=== PATIENT | male | born 1960 | race Caucasian/White ===

== ENCOUNTER 2020-10-02 01:28 | Emergency (ER) | payer MEDICARE, OTHER, SELFPAY ==
--- NOTE | 2020-10-02 01:01 | PC.NURSE ---
attempted to call [facility] [employer] guardian listed at phone number [phone] without success.
[2020-10-02 01:10] VITALS: BP 118/64; PULSE 77; RESP 18; TEMP 36.8; O2SAT 98; BMI 30.4
--- NOTE | 2020-10-02 01:17 | HMH.EDSKAF ---
ED Disposition Clinical Impression: Foreign body in ear Qualifiers: Encounter type: initial encounter Laterality: left Qualified Code(s): T16.2XXA - Foreign body in left ear, initial encounter Disposition: Home, Self-Care Condition on Discharge: Good Instructions: DI for Removal of Foreign Body From Ear Additional Instructions: resume prev orders - Critical Care Critical Care Time: No Attestation: On , the high probability of a clinically significant, sudden or life threatening deterioration of the following system(s) required my full and direct attention, intervention and personal management. The time I documented below is in addition to time spent performing reported procedures but includes the following listed in this critical care notation. Medical Decision Making - Medical Records Medical records reviewed: Yes: I reviewed the patient's medical records. - Massimo Inquiry Pt receiving controlled substance: No Vital Signs: 10/02/20 01:10 Temperature 98.2 F Temperature Source Oral Pulse Rate [Right Brachial] 77 Respiratory Rate 18 Blood Pressure [Right Arm] 118/64 Blood Pressure Mean [Right Arm] 82 Blood Pressure Source [Right Arm] Automatic Cuff Blood Pressure Position [Right Arm] Sitting 02 Sat by Pulse Oximetry 98 Oxygen Delivery Method Room Air - Lab Data Lab results reviewed: Yes: I reviewed the patient's lab results. Medical Decision Narrative: removed with irrigation - tm ok Skin/Abscess/FB HPI - General Chief complaint: Ear Stated complaint: possible insect in ear Time Seen by Provider: 10/02/20 01:15 Mode of Arrival: EMS Source of Information: Patient, EMS, Medical Record Limitations: No Limitations Description of Symptoms (Recalled from ER Triage Doc. by RN): left ear possible insect - History of Present Illness HPI narrative: possible insect in lt ear MD complaint: foreign body Onset (ago): hour(s) Location: face Severity: moderate Context: none Associated symptoms: denies other symptoms Treatments prior to arrival: none - Related Data Home Medications Medication Instructions Recorded Confirmed Folic Acid 0.4 mg PO DAILY 10/02/20 10/02/20 Metformin HCl 500 mg PO BID 10/02/20 10/02/20 Mirtazapine [Remeron 15mg tablet] 15 mg PO HS 10/02/20 10/02/20 OLANZapine [Olanzapine Odt] 5 mg PO DAILY 10/02/20 10/02/20 OLANZapine [Olanzapine] 20 mg PO HS 10/02/20 10/02/20 Allergies Allergy/AdvReac Type Severity Reaction Status Date / Time No Known Allergies Allergy Verified 10/02/20 01:18 [facility] History - Hepatitis A Screen Drug use history?: No High risk sexual behaviors?: No History of sexually transmitted infection?: No Currently employed?: No Childcare worker?: No Do you have indoor plumbing?: Yes Do you have electricity?: Yes Attestation statement:: This patient has been screened for Hepatitis A risk factors. I have reviewed the patient's past medical history: Yes ROS Obtained: Yes All systems reviewed & no additional complaints - Constitutional Constitutional: Denies fever(s) - Eyes Eyes: Denies change in vision - ENT Ears, Nose, Mouth, and Throat: Reports as per HPI, Denies sore throat, Reports other (possible fb ear lt ) - Cardiovascular Cardiovascular: Denies chest pain - Respiratory Respiratory: Denies cough - Gastrointestinal Gastrointestingal: Denies: abdominal pain - Genitourinary Male Genitourinary: Reports blood in semen, Denies hematuria - Musculoskeletal Musculoskeletal: Denies joint pain - Integumentary/Breasts Skin/Breast: Denies rash - Neurologic Neurologic: Denies seizure-like activity Physical Exam - General General appearance: alert - Head Head exam: normocephalic - Eye Eye exam: Present: PERRL, EOMI - Expanded ENT Exam TM/Canal exam: Left TM: foreign body (insect) - Neck Neck exam: Present: full ROM - Respiratory Respiratory exam: Present: normal lung sounds bilaterally - Cardiovasc
--- NOTE | 2020-10-02 01:27 | PC.NURSE ---
Spoke with Koki at [facility] in regards to transportation for pt back to [place]. She states she will be here shortly o take him back home.
[2020-10-02 01:42] VITALS: BP 137/77; PULSE 84; RESP 16; TEMP 36.4; O2SAT 98
== END 2020-10-02 01:43 | disposition home or self-care (01) ==
LOC: ER 01:38
PROVIDERS: Emergency Provider Emergency Medicine; PCP Emergency Medicine
DX: T16.2XXA Foreign body in left ear, initial encounter (principal)
CPT/HCPCS: 69200; 99282

== ENCOUNTER 2023-11-12 19:44 | Observation (INO) | payer MEDICARE, OTHER, SELFPAY ==
[2023-11-12 19:44] VITALS: BP 170/71; PULSE 91; RESP 26; TEMP 36.8; O2SAT 96; BMI 30.4
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
--- NOTE | 2023-11-12 20:02 | PC.NURSE ---
contacted house for information re: outpatient wound care follow thru. Spoke with Suma. She will retrieve the order and take it to the PT office
--- NOTE | 2023-11-12 20:21 | XR_ITS ---
PROCEDURE INFORMATION: Exam: XR Left Ankle Exam date and time: 11/12/2023 8:19 PM Age: 63 years old Clinical indication: Cellulitis; Ankle; Left; Additional info: Soft tissue infection TECHNIQUE: Imaging protocol: Radiologic exam of the left ankle. Views: 3 or more views. COMPARISON: No relevant prior studies available. FINDINGS: Bones/joints: Anatomic alignment is maintained. No acute fracture. No osteochondral defect. posteroinferior calcaneal enthesophytes. Soft tissues: Soft tissue edema about the visualized lower extremity. IMPRESSION: Nonspecific soft tissue edema without acute osseous abnormality. Recommend correlation with history/physical exam.
[2023-11-12 20:24] LABS: Basophils # 0.1 K/mm3 (0-0.2); Basophils % 0.8 % (0.1-2.0); Eosinophils # 0.1 K/mm3 (0.0-0.4); Eosinophils % 1.6 % (0.1-12.0); Hematocrit 29.4 % (42.0-52.0); Hemoglobin 9.6 g/dL (14.1-18.0); Lymphocytes # 1.8 K/mm3 (0.7-4.5); Lymphocytes % 27.7 % (10-50); Mean Corpuscular HGB Conc 32.7 g/dL (31.8-35.4); Mean Corpuscular Hemoglobin 20.7 pg (27.0-31.2); Mean Corpuscular Volume 63.4 fl (80-94); Mean Platelet Volume 9.3 fl (7.4-10.4); Monocytes # 0.5 K/mm3 (0.1-1.0); Monocytes % 7.1 % (1.7-9.3); Neutrophils # 4.2 K/mm3 (1.8-7.8); Neutrophils % 62.9 % (37.0-80.0); Platelet Count 182 K/mm3 (142-424); Red Blood Count 4.63 M/mm3 (4.60-6.20); Red Cell Distribution Width 16.5 % (11.5-17.5); White Blood Count 6.7 K/mm3 (4.8-10.8)
[2023-11-12 20:30] LABS: Chloride 102 mmol/L (98-107); Potassium 3.3 mmoL/L (3.5-5.1); Sodium 137 mmol/L (136-145)
[2023-11-12 20:33] LABS: Alanine Aminotransferase 63 U/L (12-78); Albumin Level 3.7 g/dl (3.5-5.0); Albumin/Globulin Ratio 0.8 (1.1-1.8); Alkaline Phosphatase 84 U/L (38-126); Anion Gap 11.3 mEq/L (5-15); Aspartate Amino Transferase 76 U/L (17-59); Bilirubin,Total 1.7 mg/dl (0.2-1.3); Blood Urea Nitrogen 10 mg/dl (9-20); Carbon Dioxide 27 mmol/L (22.0-30.0); Creatinine Clearance Estimated 94 mL/min (50-200); Estimated Glomerular Filt Rate 113 ml/min (>60); GFR (African American) 137 ML/MIN (>60); Globulin 4.4 g/dL (1.3-3.2); INR 1.02 (0.9-1.1); Prothrombin Time 11.4 seconds (10.1-12.5); Total Protein,Serum 8.1 g/dl (6.3-8.2)
[2023-11-12 20:34] LABS: Calcium 9.4 mg/dl (8.4-10.2); Glucose 133 mg/dl (74-100)
[2023-11-12] MEDS: PIPERACILLIN/TAZO 4.5 GM in 0.9 % SODIUM CHLORIDE 100 ML IV (20:34)
[2023-11-12] MEDS: VANCOMYCIN CONSULT REQUEST 1 EACH NOTAPPLIC (20:37)
[2023-11-12 20:39] LABS: C-Reactive Protein 9.7 mg/L (0-4)
[2023-11-12 20:46] LABS: Hemoglobin A1C 5.2 % (4.0-6.0)
[2023-11-12 21:05] LABS: Procalcitonin 0.076 ng/mL (0.0-2.0)
--- NOTE | 2023-11-12 21:07 | PC.NURSE ---
dane delarosa on phone with hospitalist at this time
[2023-11-12] MEDS: VANCOMYCIN HCL 2,250 MG in 0.9 % SODIUM CHLORIDE 250 ML 125 MG IV (21:10)
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
--- NOTE | 2023-11-12 21:39 | PC.NURSE ---
pts wound cleaned and dressing placed on wound. bed sheet noted to be dirty and wet from cleaning wound. sheet changed
[2023-11-12] MEDS: BACITRACIN OINT 0.9GM UDP 1 EACH TP (21:41)
[2023-11-12 21:53] VITALS: BP 153/67; PULSE 78; RESP 22; TEMP 36.6; O2SAT 95
[2023-11-12 21:54] LABS: Erythrocyte Sedimentation Rate 103 mm/hr (0-20)
--- NOTE | 2023-11-12 21:55 | PC.NURSE ---
pt arrived to floor at this time
[2023-11-12 22:00] VITALS: BP 153/64; PULSE 79; RESP 14; TEMP 36.6; O2SAT 99; BMI 29.1
--- NOTE | 2023-11-12 23:00 | PC.WOUNDNOTE ---
left lower extremity
[2023-11-12] MEDS: 0.9 % SODIUM CHLORIDE 1000ML 1,000 ML 50 ML IV (23:26)
[2023-11-13] MEDS: POTASSIUM CHLORIDE 20MEQ TAB 40 MEQ PO (01:08)
[2023-11-13 04:00] VITALS: BP 138/61; PULSE 88; RESP 16; TEMP 36.7; O2SAT 97; BMI 28.1
[2023-11-13 05:26] LABS: POC Glucose,Bedside 129 (70-110)
[2023-11-13] MEDS: PIPERACILLIN/TAZO 4.5 GM in 0.9 % SODIUM CHLORIDE 100 ML IV (06:30)
[2023-11-13 07:03] LABS: Basophils % 0.7 % (0.1-2.0); Eosinophils # 0.1 K/mm3 (0.0-0.4); Eosinophils % 1.5 % (0.1-12.0); Hematocrit 26.8 % (42.0-52.0); Hemoglobin 9.4 g/dL (14.1-18.0); Lymphocytes # 1.9 K/mm3 (0.7-4.5); Lymphocytes % 29.5 % (10-50); Mean Corpuscular Hemoglobin 22.5 pg (27.0-31.2); Mean Corpuscular Volume 64.2 fl (80-94); Mean Platelet Volume 8.8 fl (7.4-10.4); Monocytes # 0.6 K/mm3 (0.1-1.0); Monocytes % 9.6 % (1.7-9.3); Neutrophils # 3.8 K/mm3 (1.8-7.8); Neutrophils % 58.8 % (37.0-80.0); Platelet Count 157 K/mm3 (142-424); Red Blood Count 4.16 M/mm3 (4.60-6.20); Red Cell Distribution Width 16.7 % (11.5-17.5); White Blood Count 6.4 K/mm3 (4.8-10.8)
[2023-11-13 07:06] LABS: Reticulocyte % (Auto) 1.1 % (0.9-3.2)
[2023-11-13 07:12] LABS: Alanine Aminotransferase 58 U/L (12-78); Albumin Level 3.4 g/dl (3.5-5.0); Albumin/Globulin Ratio 0.8 (1.1-1.8); Alkaline Phosphatase 75 U/L (38-126); Aspartate Amino Transferase 68 U/L (17-59); Bilirubin,Total 1.8 mg/dl (0.2-1.3); Blood Urea Nitrogen 10 mg/dl (9-20); Calcium 9.1 mg/dl (8.4-10.2); Carbon Dioxide 28 mmol/L (22.0-30.0); Chloride 102 mmol/L (98-107); Creatinine Clearance Estimated 88 mL/min (50-200); Estimated Glomerular Filt Rate 97 ml/min (>60); GFR (African American) 117 ML/MIN (>60); Globulin 4.2 g/dL (1.3-3.2); Glucose 109 mg/dl (74-100); Magnesium 1.5 mg/dl (1.6-2.3); Sodium 136 mmol/L (136-145); Total Protein,Serum 7.6 g/dl (6.3-8.2)
--- NOTE | 2023-11-13 07:40 | P.CONPHA_ITS ---
Pharmacy Consult Date: 11/13/23 Time: 07:40 Referring provider: DR. OCHOA Reason for Consult:: VANCOMYCIN DOSING Allergies Allergy/AdvReac Type Severity Reaction Status Date / Time No Known Allergies Allergy Verified 10/02/20 01:18 Home Medications Medication Instructions Recorded Confirmed Type folic acid 400 mcg tablet 0.4 mg PO DAILY Supplement 10/02/20 11/12/23 History metformin 500 mg tablet 500 mg PO BID Diabetes 10/02/20 11/12/23 History mirtazapine 15 mg tablet 15 mg PO HS rls 10/02/20 11/12/23 History olanzapine 5 mg disintegrating 5 mg PO DAILY mood 10/02/20 11/12/23 History tablet hydrochlorothiazide 25 mg tablet 25 mg PO DAILY 11/12/23 11/12/23 History olanzapine 20 mg tablet (Zyprexa) 20 mg PO HS 11/12/23 11/12/23 History New Prescriptions to Start Prescriptions: Height: 1.73 m Weight: 84.368 kg Laboratory Results:: Laboratory Results - last 24 hr 11/12/23 20:14: WBC 6.7, RBC 4.63, Hgb 9.6 L, Hct 29.4 L, MCV 63.4 L, MCH 20.7 L , MCHC 32.7, RDW 16.5, Plt Count 182, MPV 9.3, Neut % (Auto) 62.9, Lymph % (Auto) 27.7, [place] % (Auto) 7.1, Eos % (Auto) 1.6, Baso % (Auto) 0.8, Neut # (Auto) 4.2, Lymph # (Auto) 1.8, [place] # (Auto) 0.5, Eos # (Auto) 0.1, Baso # (Auto) 0.1, ESR 103 H, PT 11.4, INR 1.02, Sodium 137, Potassium 3.3 L, Chloride 102, Carbon Dioxide 27, Anion Gap 11.3, BUN 10, Creatinine 0.70, Estimated Creat Clear 94, Estimated GFR 113, Est GFR ( Amer) 137, Glucose 133 H, Hemoglobin A1c 5.2, Calcium 9.4, Total Bilirubin 1.7 H, AST 76 H, ALT 63, Alkaline Phosphatase 84, C-Reactive Protein 9.7 H, Total Protein 8.1, Albumin 3.7, Globulin 4.4 H, Albumin/Globulin Ratio 0.8 L, Procalcitonin 0.076 11/13/23 05:15: POC Glucose 129 H 11/13/23 06:17: WBC 6.4, RBC 4.16 L, Hgb 9.4 L, Hct 26.8 L, MCV 64.2 L, MCH 22.5 L, MCHC 35.0, RDW 16.7, Plt Count 157, MPV 8.8, Neut % (Auto) 58.8, Lymph % (Auto) 29.5, [place] % (Auto) 9.6 H, Eos % (Auto) 1.5, Baso % (Auto) 0.7, Neut # (Auto) 3.8, Lymph # (Auto) 1.9, [place] # (Auto) 0.6, Eos # (Auto) 0.1, Baso # (Auto) 0.0, Retic Count (auto) 1.1, Sodium 136, Potassium 4.0 D, Chloride 102, Carbon Dioxide 28, Anion Gap 10.0, BUN 10, Creatinine 0.80, Estimated Creat Clear 88, Estimated GFR 97, Est GFR ( Amer) 117, Glucose 109 H, Calcium 9.1, Magnesium 1.5 L, Total Bilirubin 1.8 H, AST 68 H, ALT 58, Alkaline Phosphatase 75, Total Protein 7.6, Albumin 3.4 L, Globulin 4.2 H, Albumin/[place] bulin Ratio 0.8 L Medical History: Medical History (Updated 11/13/23 @ 01:22 by Luis Kwan APRN) No significant past medical history Assessment and Plan Assessment and plan all Dx Assessment and Plan for all problems:: Pharmacokinetic dosing service Objective: Patient: Floor: Age: 63 yo Serum creatinine: 0.80 mg/dL Height: 68.1 Inches Weight (kg): 84.4 Assessment: IBW (kg): 68.63 Dosing wt(kg): 84.4 Estimated Creatinine clearance (ml/min): 89.4 CRCL method: Cockcroft and Gault using ibw(default). Drug selected: Vancomycin Loading dose (mg): Vd (liters): 67.5 (factor used: 0.8 L/kg) Alvaro (hr-1): 0.079 Half life (hrs): 8.77 CLvanco=?? 5.333 L/hr Recommended dose: 1500 mg Interval: 12 hrs Infusion time (hrs): 2.0 Predicted peak (mcg/mL): 33.6 Predicted trough (mcg/mL): 15.25 Total body weight is being used for vancomycin dosing. Recommendations: Give Vancomycin 1500 mg q 12 hrs with an expected Cpeak of 33.6 mcg/ml and an expected Ctrough of 15.25 mcg/ml AUC 0-24 /RITO Data: RITO 0.5 mcg/mL:?? AUC/RITO:? 1125.1 RITO 1.0 mcg/mL:?? AUC/RITO:? 562.5 --------- RITO 1.5 mcg/mL:?? AUC/RITO:? 375.0 RITO 2.0 mcg/mL:?? AUC/RITO:? 281.3 Thank you for the consult, will continue to follow. -BRIANNA FUNG, YONYD
[2023-11-13 08:00] VITALS: BP 136/62; PULSE 82; RESP 22; TEMP 36.4; O2SAT 93
[2023-11-13] MEDS: ENOXAPARIN 40MG/0.4ML SYRINGE 40 MG SQ (09:03)
[2023-11-13] MEDS: METFORMIN 500MG TABLET 500 MG PO (09:03)
[2023-11-13] MEDS: hydroCHLOROthiazide 25MG TABLET 25 MG PO (09:03)
[2023-11-13] MEDS: MAGNESIUM SULFATE IN WATER 2 GM/50 ML PIGGYBACK IV (09:03)
[2023-11-13] MEDS: PANTOPRAZOLE 40MG TABLET 40 MG PO (09:03)
[2023-11-13 09:31] LABS: Vitamin B12 786 pg/mL (239-931)
[2023-11-13 09:33] LABS: Folate 5.63 ng/mL
[2023-11-13] MEDS: levoFLOXacin 750 MG TABLET PO (12:15)
[2023-11-13] MEDS: VANCOMYCIN/WATER FOR INJ (PEG) 1.5 GM/300 ML PIGGYBACK IV (12:15)
[2023-11-13 12:19] LABS: POC Glucose,Bedside 140 (70-110)
--- NOTE | 2023-11-13 12:19 | HMH.PHAINT1 ---
Pharmacy Intervention Comments: MEDICATION RECONCILIATION COMPLETED ON PATIENT USING EXTERNAL FILL HISTORY FROM PHARMACY. ATTEMPTED TO CALL [facility] FOR MAR AND WAS UNABLE TO OBTAIN. -BRIANNA FUNG, YONYD
[2023-11-13 13:58] LABS: Iron 145 ug/dL (49-181)
[2023-11-13 14:07] LABS: Total Iron Binding Capacity 167 ug/dL (261-462)
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
--- NOTE | 2023-11-13 14:21 | SW/DCPLANNER ---
Patient currently resides at [facility]. I have updated Dimple hernandez/ Nirmal Meyer that the plan for this patient is to return today and will need to return to [facility] outpatient on 11/14 for one dose of antibiotics and will need to also return for dressing changes.
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
[2023-11-13 17:11] LABS: Ferritin 2090 ng/ml (17.9-464)
== END 2023-11-13 15:40 | disposition home or self-care (01) ==
LOC: ER 21:17 → 2ND 21:22
PROVIDERS: Nurse Practitioner Family; Physician Assistant; Admitting Provider Internal Medicine; Emergency Provider Student in an Organized Health Care Education/Training Program; PCP Nurse Practitioner Acute Care; Visit Provider Internal Medicine
DX: L03.116 Cellulitis of left lower limb (principal); T25.212A Burn of second degree of left ankle, initial encounter; E11.69 Type 2 diabetes mellitus with other specified complication; I10 Essential (primary) hypertension; F25.9 Schizoaffective disorder, unspecified; Z79.899 Other long term (current) drug therapy; F17.210 Nicotine dependence, cigarettes, uncomplicated; E11.42 Type 2 diabetes mellitus with diabetic polyneuropathy; X08.8XXA Exposure to other specified smoke, fire and flames, initial encounter; Y92.099 Unspecified place in other non-institutional residence as the place of occurrence of the external cause; D52.9 Folate deficiency anemia, unspecified; Z79.84 Long term (current) use of oral hypoglycemic drugs; B95.61 Methicillin susceptible Staphylococcus aureus infection as the cause of diseases classified elsewhere; B96.89 Other specified bacterial agents as the cause of diseases classified elsewhere
CPT/HCPCS: 36415; 73610; 80053; 82607; 82728; 82746; 82962; 83036; 83540; 83550; 83735; 84145; 85025; 85044; 85610; 85651; 86140; 87040; 87070; 87077; 87186; 87205; 99285; G0378; J1650; J2543; J3370; J3475

== ENCOUNTER 2023-11-15 14:55 | Outpatient (CLI) | payer MEDICARE, OTHER, SELFPAY ==
[2023-11-15 15:20] VITALS: BP 147/67; PULSE 93; RESP 18; TEMP 36.9; O2SAT 95
[2023-11-15] MEDS: DALBAVANCIN HCL 1,500 MG in DEXTROSE 5 % IN WATER 250 ML 500 MG IV (15:20)
[2023-11-15 16:00] VITALS: BP 147/70; PULSE 89; RESP 18; TEMP 36.7; O2SAT 95
== END 2023-11-15 16:10 | disposition home or self-care (01) ==
LOC: INF 15:00
PROVIDERS: PCP Nurse Practitioner Acute Care; Visit Provider Internal Medicine Adolescent Medicine
DX: L03.116 Cellulitis of left lower limb (principal)
CPT/HCPCS: 96365; J0875; J7060

== ENCOUNTER 2023-12-14 14:37 | Outpatient (CLI) | payer MEDICARE, OTHER, SELFPAY | END 2023-12-14 23:59 | disposition home or self-care (01) | PROVIDERS: PCP Nurse Practitioner Acute Care; Visit Provider Internal Medicine Adolescent Medicine | DX: Z53.21 Procedure and treatment not carried out due to patient leaving prior to being seen by health care provider (principal) ==

== ENCOUNTER 2023-12-19 13:30 | Outpatient (RCR) | payer MEDICARE, OTHER, SELFPAY ==
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
== END 2023-12-19 13:35 | disposition home or self-care (01) ==
LOC: PT 13:30
PROVIDERS: Visit Provider Internal Medicine Adolescent Medicine
DX: L03.116 Cellulitis of left lower limb (principal)
CPT/HCPCS: 97163; 97597

== ENCOUNTER 2024-08-22 01:40 | Emergency (ER) | payer MEDICARE, OTHER, SELFPAY ==
[2024-08-22 01:41] VITALS: BP 108/83; PULSE 93; RESP 16; TEMP 36.6; O2SAT 98; BMI 26.3
--- NOTE | 2024-08-22 01:41 | XR_ITS ---
FINAL REPORT CLINICAL HISTORY: Fall, humerus pain FINDINGS: Two views show no evidence of an acute, displaced fracture or dislocation of the visualized bony architecture. The joint spaces appear normal. IMPRESSION: Unremarkable exam. Reviewed, Interpreted and Dictated by Kami Soto MD Transcribed by Rita Guzman Authenticated and . [facility]
--- NOTE | 2024-08-22 01:41 | XR_ITS ---
FINAL REPORT CLINICAL HISTORY: fall left rib pain FINDINGS: There is abnormal fullness of the AP window, mass or adenopathy is not excluded. The right lung is clear. There is no evidence of effusion or pneumothorax. There is evidence of old right AC joint injury. Heart size is normal. IMPRESSION: Abnormal mediastinal contour and widening. Recommend contrast-enhanced CT. Reviewed, Interpreted and Dictated by Kami Soto MD Transcribed by Rita Guzman Authenticated and [facility]
--- NOTE | 2024-08-22 01:44 | ED_ITS ---
Discharge Plan Disposition Patient Disposition: Home, Self-Care Prescriptions Prescriptions: No Action hydrochlorothiazide 25 mg Tablet 25 mg PO DAILY olanzapine [Zyprexa] 20 mg Tablet 20 mg PO HS temazepam 15 mg capsule 15 mg PO HSP PRN (Reason: Sleep) levofloxacin 750 mg Tablet 750 mg PO 1100 6 Days Qty: 6 0RF metformin 500 MG tablet 500 mg PO BID folic acid 0.4 MG tablet 0.4 mg PO DAILY mirtazapine 15 MG tablet 15 mg PO HS olanzapine 5 MG tablet,disintegrating 5 mg PO DAILY Referrals Follow up/Referrals: Provider,Referral, MD [Primary Care Provider] - See instructions Activity Restrictions/Add. Instructions Additional Instructions/Restrictions: Please follow-up with your primary care provider. Please return to the emergency department if you develop any new or worsening symptoms or become concerned for your health. Clinical Impressions Clinical Impression: Fall Arm pain Qualifiers: Laterality: left Qualified Code(s): M79.602 - Pain in left arm Chest pain Qualifiers: Chest pain type: intercostal pain Qualified Code(s): R07.82 - Intercostal pain Print Language Print Language: Ukrainian Discharge ED Provider: Modesto Celaya General Adult HPI General Chief complaint: Extremity Injury, Upper Stated complaint: Fall Time Seen by Provider: 08/22/24 01:44 History of Present Illness HPI narrative: 64-year-old male with history of schizophrenia presents for left arm pain and left rib pain after a fall. He reports that he tripped on the side of the bed and fell earlier today landing on his left arm. He reports it has been bothering him since then. Denies hitting his head or loss of consciousness or any other injuries. Related Data Home Medications ?Medication ?Instructions ?Recorded ?Confirmed folic acid 400 mcg tablet 0.4 mg PO DAILY Supplement 10/02/20 11/12/23 metformin 500 mg tablet 500 mg PO BID 10/02/20 11/12/23 mirtazapine 15 mg tablet 15 mg PO HS 10/02/20 11/12/23 olanzapine 5 mg disintegrating 5 mg PO DAILY 10/02/20 11/12/23 tablet hydrochlorothiazide 25 mg tablet 25 mg PO DAILY 11/12/23 11/12/23 olanzapine 20 mg tablet (Zyprexa) 20 mg PO HS 11/12/23 11/12/23 temazepam 15 mg capsule 15 mg PO HSP PRN Sleep 11/13/23 11/13/23 Previous Rx's ?Medication ?Instructions ?Recorded levofloxacin 750 mg tablet 750 mg PO 1100 6 days #6 tabs 11/13/23 Allergies Allergy/AdvReac Type Severity Reaction Status Date / Time No Known Allergies Allergy Verified 10/02/20 01:18 [facility] Disclaimer: The information contained in this section may have been updated after the patient was seen, as this information can be updated by other users. Medical History (Updated 08/22/24 @ 02:23 by Modesto Celaya MD) No significant past medical history Social History Smoking Status: Current every day smoker alcohol intake: never current occupational status: unemployed Travel in the last 8 weeks: None Other Medical History Have you received the Flu Vaccine for this season: No Have you received the Pneumonia Vaccine: No ROS Obtained: Yes All systems reviewed & no additional complaints except as documented Physical Exam General General appearance: alert and in no apparent distress Head Head exam: atraumatic and normocephalic Eye Eye exam: Present normal appearance, PERRL and EOMI ENT ENT exam: Present normal oropharynx and normal external ear exam Neck Neck exam: Present normal inspection and full ROM Chest Chest inspection: Present normal inspection and symmetric chest wall rise; Absent tenderness Respiratory Respiratory exam: Present normal lung sounds bilaterally; Absent respiratory distress Cardiovascular Cardiovascular exam: Present regular rate and normal rhythm Abdominal Exam Abdominal exam: Present soft; Absent distention, tenderness or guarding Extremities Exam Extremities exam: Present normal inspection; Absent edema or joint swelling Back Exam Back exam: Present normal inspection; Absent tenderness Neurological Exam Neurological exam: Present alert and oriented X3; Absent motor sensory deficit Psychiatric Psychiatric exam: Present normal affect and normal mood Skin Skin exam: Present warm, dry and normal color Lymphatic Lymphatic Findings: no adenopathy Medical Decision Making Medical Records Medical records reviewed: Yes I reviewed the patient's medical records. Screening: Per USPSTF and CDC recommendations, given the prevalence of disease in our region, it is our hospital?s policy to screen for HIV and viral Hepatitis for all patients aged 18 and over and those with ongoing risk factors. Massimo Inquiry Pt receiving controlled substance: No Massimo was queried for this patient: No Vital Signs: 08/22/24 01:41 08/22/24 01:45 08/22/24 02:35 Temperature 97.9 F 97.9 F Temperature Source Oral Oral Pulse Rate 89 84 Pulse Rate [Right Radial] 93 H Respiratory Rate 16 16 18 Blood Pressure 108/83 L 157/76 H Blood Pressure [Right Arm] 108/83 L Blood Pressure Mean [Right Arm] 91 Blood Pressure Source [Right Arm] Automatic Cuff Blood Pressure Position Sitting Blood Pressure Position [Right Arm] Supine 02 Sat by Pulse Oximetry 98 99 Oxygen Delivery Method Room Air Room Air Room Air Lab Data Lab results reviewed: Yes I reviewed the patient's lab results. Orders (Tests/Meds): ED MEDICATIONS Discontinued Medications Generic Name Dose Route Start Last Admin Trade Name Freq PRN Reason Stop Dose Admin Acetaminophen 1,000 mg 08/22/24 01:41 08/22/24 01:51 Acetaminophen 500mg Tab PO 08/22/24 01:42 1,000 mg ONCE ONE Administration ORDERS Category Date Time Status CXR --portable [XR chest portable] Stat Exams 08/22/24 01:41 Taken Humerus XR left [XR humerus LT] Stat Exams 08/22/24 01:41 Taken Medical Decision Narrative: 64-year-old male with history of schizophrenia presents with left arm pain after a fall from standing.. History was obtained via interactive discussion with patient, EMS. On arrival, patient is [afebrile, hemodynamically stable, satting appropriately, alert, oriented x4, GCS 15], moving all extremities spontaneously. Full physical exam performed and significant for no significant signs of trauma. Patient is not on blood thinners. Differential includes but is not limited to intracranial trauma intrathoracic trauma intra-abdominal trauma spine trauma extremity trauma. No concern for significant trauma based on history and exam. Will evaluate with radiographs of the left humerus and chest. On my independent interpretation, radiographs and evidence of acute fracture, pneumothorax or other traumatic injuries. Patient was given Tylenol for pain control and discharged in stable condition with return precautions. CT trauma imaging was considered, but deemed unnecessary due to history and physical exam. Procedures Risk/Benefits of Procedure(s) Were Explained: Yes Critical Care Critical Care Time Critical Care Time: No
[2024-08-22 01:45] VITALS: BP 108/83; PULSE 89; RESP 16; O2SAT 99
[2024-08-22] MEDS: ACETAMINOPHEN 500MG TAB 1000 MG PO (01:51)
[2024-08-22 02:35] VITALS: BP 157/76; PULSE 84; RESP 18; TEMP 36.6; O2SAT 99
== END 2024-08-22 02:46 | disposition home or self-care (01) ==
PROVIDERS: Emergency Provider Emergency Medicine
DX: R07.82 Intercostal pain (principal); M79.602 Pain in left arm; W01.10XA Fall on same level from slipping, tripping and stumbling with subsequent striking against unspecified object, initial encounter
CPT/HCPCS: 99284; 71045; 73060

== ENCOUNTER 2024-09-12 11:09 | Emergency (ER) | payer MEDICARE, OTHER, SELFPAY ==
[2024-09-12 11:17] VITALS: BP 142/60; PULSE 101; RESP 17; TEMP 36.4; O2SAT 98; BMI 26.4
[2024-09-12 11:35] VITALS: PULSE 98; O2SAT 96
[2024-09-12 11:38] LABS: Alanine Aminotransferase 52 U/L (12-78); Albumin Level 3.7 g/dl (3.5-5.0); Albumin/Globulin Ratio 1.1 (1.1-1.8); Alkaline Phosphatase 77 U/L (38-126); Anion Gap 5.8 mEq/L (5-15); Aspartate Amino Transferase 52 U/L (17-59); Bilirubin,Total 1.7 mg/dl (0.2-1.3); Blood Urea Nitrogen 9 mg/dl (9-20); Calcium 10.4 mg/dl (8.4-10.2); Carbon Dioxide 28 mmol/L (22.0-30.0); Chloride 94 mmol/L (98-107); Creatinine Clearance Estimated 89 mL/min (50-200); Estimated Glomerular Filt Rate 135 ml/min (>60); GFR (African American) 163 ML/MIN (>60); Globulin 3.4 g/dL (1.3-3.2); Glucose 204 mg/dl (74-100); Potassium 3.8 mmoL/L (3.5-5.1); Sodium 124 mmol/L (136-145); Total Protein,Serum 7.1 g/dl (6.3-8.2)
[2024-09-12] MEDS: KETOROLAC 30MG/ML VIAL 15 MG IV (11:40)
[2024-09-12] MEDS: LACTATED RINGERS 1000ML 1,000 ML 999 ML IV (11:40)
[2024-09-12 11:54] LABS: Basophils % 0.6 % (0.1-2.0); Eosinophils # 0.1 Kmm3 (0.0-0.4); Eosinophils % 1.7 % (0.1-12.0); Hematocrit 24.2 % (42.0-52.0); Hemoglobin 7.9 g/dL (14.1-18.0); Lymphocytes # 1.7 K/mm3 (0.7-4.5); Mean Corpuscular HGB Conc 32.6 g/dL (31.8-35.4); Mean Corpuscular Hemoglobin 20.3 pg (27.0-31.2); Mean Corpuscular Volume 62.2 fl (80-94); Mean Platelet Volume 10.7 fl (7.4-10.4); Monocytes # 0.6 K/mm3 (0.1-1.0); Monocytes % 7.7 % (1.7-9.3); Neutrophils # 4.7 K/mm3 (1.8-7.8); Neutrophils % 65.4 % (37.0-80.0); Nucleated Red Blood Cells # 0.04 10^3/uL; Nucleated Red Blood Cells % 0.6 %; Platelet Count 213 K/mm3 (142-424); Red Blood Count 3.89 M/mm3 (4.60-6.20); Red Cell Distribution Width 16.2 % (11.5-17.5); Red Cell Distribution Width-SD 34.9 fL; White Blood Count 7.2 K/mm3 (4.8-10.8)
--- NOTE | 2024-09-12 11:55 | ED_ITS ---
Discharge Plan Disposition Patient Disposition: Home, Self-Care Chief Complaint: Skin/Abscess/Foreign Body Prescriptions Prescriptions: No Action hydrochlorothiazide 25 mg Tablet 25 mg PO DAILY olanzapine [Zyprexa] 20 mg Tablet 20 mg PO HS temazepam 15 mg capsule 15 mg PO HSP PRN (Reason: Sleep) metformin 500 MG tablet 500 mg PO BID folic acid 0.4 MG tablet 0.4 mg PO DAILY mirtazapine 15 MG tablet 15 mg PO HS olanzapine 5 MG tablet,disintegrating 5 mg PO DAILY loperamide [Anti-Diarrheal (loperamide)] 2 mg tablet 2 mg PO DIRECTED Rx Instructions: 1 tablet by mouth for loose stool not to exceed 8mg/day cholecalciferol (vitamin D3) 1,250 mcg (50,000 unit) capsule 1,250 mcg PO WEEKLY Rx Instructions: once weekly on MONDAY Referrals Follow up/Referrals: Provider,Referral, MD [Referring] - See instructions Activity Restrictions/Add. Instructions Additional Instructions/Restrictions: Call your family doctor to establish care for this visit to the emergency department and schedule follow-up within 48 hours to ensure improvement. If you have any worsening of your condition or any other concerning signs or symptoms, return to the emergency department or your primary care doctor for further evaluation. Follow-up with your family doctor for repeat labs to look at your electrolytes. Clinical Impressions Clinical Impression: Cellulitis of arm, left Instructions Patient Instructions: DI for Skin Abscess Print Language Print Language: Malaysian Discharge ED Provider: Kenton Villegas General Adult HPI General Chief complaint: Skin/Abscess/Foreign Body Stated complaint: Edema in forearm Time Seen by Provider: 09/12/24 11:12 Mode of Arrival: EMS Source of Information: Patient and EMS Description of Symptoms (Recalled from ER Triage Doc. by RN): pt arrives to the ED by EMS with left hand swelling that goes up his forearm. EMS reports they got called out to [facility] for left hand swelling with concerns of a blood clot. Vital signs stable enroute to hospital. EMS reports pt is alert and oriented x4 with GCS 15. EMS reported glucose of 236 of enroute. Left hand and forearm swollen with redness. Nodule on left forearm with redness and swelling. Distal pulse on left radial 2+. History of Present Illness HPI narrative: Please note that above description of symptoms, in this electronic medical record under categorization of recalled from ER triage doctor by RN are reflective of an initial nursing assessment, however, is not reflective of my full history and physical exam that was personally taken and clarified. Consequentially, this preceding description of symptoms, which may include the patient's categorized chief complaint in the EMR, do not reflect my personal clinical impression, and the ultimate description of history of present illness and patient stated complaints should be deferred to this section of the note. Unless stated otherwise or congruent with this section of the note, additional signs, symptoms, or incongruence should be interpreted as inaccurate with my clinical impression. Related Data Home Medications ?Medication ?Instructions ?Recorded ?Confirmed folic acid 400 mcg tablet 0.4 mg PO DAILY Supplement 10/02/20 09/12/24 metformin 500 mg tablet 500 mg PO BID 10/02/20 09/12/24 mirtazapine 15 mg tablet 15 mg PO HS 10/02/20 09/12/24 olanzapine 5 mg disintegrating 5 mg PO DAILY 10/02/20 09/12/24 tablet hydrochlorothiazide 25 mg tablet 25 mg PO DAILY 11/12/23 09/12/24 olanzapine 20 mg tablet (Zyprexa) 20 mg PO HS 11/12/23 09/12/24 temazepam 15 mg capsule 15 mg PO HSP PRN Sleep 11/13/23 09/12/24 cholecalciferol (vitamin D3) 1,250 1,250 mcg PO WEEKLY 09/12/24 09/12/24 mcg (50,000 unit) capsule loperamide 2 mg tablet 2 mg PO DIRECTED 09/12/24 09/12/24 (Anti-Diarrheal (loperamide)) Allergies Allergy/AdvReac Type Severity Reaction Status Date / Time No Known Allergies Allergy Verified 10/02/20 01:18 [facility] Disclaimer: The information contained in this section may have been updated after the patient was seen, as this information can be updated by other users. Medical History (Updated 09/12/24 @ 12:56 by Kenton Villegas MD) No significant past medical history Social History Smoking Status: Current every day smoker alcohol intake: never current occupational status: unemployed Travel in the last 8 weeks?: None Have you lived/traveled outside US in past 30 days?: No Contact w/someone who lives/traveled outside US past 30 days?: No Exposure to someone with infectious disease in past 14 days?: No Do you have a fever (greater than 100.4 F or 38 C)?: No Have you tested positive for COVID-19?: No Exposed to someone with COVID-19 in past 14 days?: No Do you have a sore throat?: No Do you have a cough?: No Do you have any weakness?: No Do you have any diarrhea?: No Are you experiencing any unusual bleeding?: No Do you have any muscle aches/pain?: No Do you have any abdominal pain?: No Are you experiencing loss of taste or smell?: No Other Medical History Have you received the Flu Vaccine for this season: No Have you received the Pneumonia Vaccine: No ROS Obtained: Yes All systems reviewed & no additional complaints except as documented Physical Exam General General appearance: alert Head Head exam: atraumatic and normocephalic Eye Eye exam: Present normal appearance, PERRL and EOMI Neck Neck exam: Present normal inspection, full ROM and trachea midline Respiratory Respiratory exam: Absent respiratory distress, wheezes, stridor, accessory muscle use or prolonged expiratory phase Cardiovascular Cardiovascular exam: Present other (Pulses equal symmetric in upper and lower extremities) Abdominal Exam Abdominal exam: Present soft; Absent distention, tenderness or pulsatile mass Extremities Exam Extremities exam: Present edema and other Neurological Exam Neurological exam: Present alert, oriented X3 and CN II-XII intact; Absent motor sensory deficit Skin Skin exam: Present warm and dry; Absent diaphoresis or erythema Medical Decision Making Medical Records Medical records reviewed: Yes I reviewed the patient's medical records. Screening: Per USPSTF and CDC recommendations, given the prevalence of disease in our region, it is our hospital?s policy to screen for HIV and viral Hepatitis for all patients aged 18 and over and those with ongoing risk factors. Massimo Inquiry Pt receiving controlled substance: No Massimo was queried for this patient: No Vital Signs: 09/12/24 11:17 Temperature 97.5 F L Temperature Source Oral Pulse Rate [Right] 101 H Respiratory Rate 17 Blood Pressure [Right Arm] 142/60 H Blood Pressure Mean [Right Arm] 87 Blood Pressure Source [Right Arm] Automatic Cuff Blood Pressure Position [Right Arm] Supine 02 Sat by Pulse Oximetry 98 Oxygen Delivery Method Room Air Lab Data Lab Results 09/12/24 11:10: WBC 7.2, RBC 3.89 L, Hgb 7.9 L, Hct 24.2 L, MCV 62.2 L, MCH 20.3 L, MCHC 32.6, RDW 16.2, Plt Count 213, MPV 10.7 H, Neut % (Auto) 65.4, Lymph % (Auto) 24.0, Delta % (Auto) 7.7, Eos % (Auto) 1.7, Baso % (Auto) 0.6, Neut # (Auto) 4.7, Lymph # (Auto) 1.7, Delta # (Auto) 0.6, Eos # (Auto) 0.1, Baso # (Auto) 0.0, Sodium 124 L, Potassium 3.8, Chloride 94 L, Carbon Dioxide 28, Anion Gap 5.8, BUN 9, Creatinine 0.60 L, Estimated Creat Clear 89, Estimated GFR 135, Est GFR ( Amer) 163, Glucose 204 H, Calcium 10.4 H, Total Bilirubin 1.7 H , AST 52, ALT 52, Alkaline Phosphatase 77, Total Protein 7.1, Albumin 3.7, G lobulin 3.4 H, Albumin/Globulin Ratio 1.1 09/12/24 11:36: Lactate 3.1 H 09/12/24 11:10 09/12/24 11:10 Orders (Tests/Meds): ED MEDICATIONS Generic Name Dose Route Start Last Admin Trade Name Freq PRN Reason Stop Dose Admin Sodium Chloride 1,000 mls @ 999 mls/hr 09/12/24 12:27 Sod Chlor 0.9% 1000ml Bag IV 09/12/24 13:27 .Q1H1M ONE Discontinued Medications Generic Name Dose Route Start Last Admin Trade Name Freq PRN Reason Stop Dose Admin Lactated Ringer's 1,000 mls @ 999 mls/hr 09/12/24 11:27 09/12/24 11:40 Lactated Ringer's 1000 Ml Bag IV 09/12/24 12:27 999 mls/hr .Q1H1M ONE Administration Dalbavancin 1,500 mg/ Dextrose 250 mls @ 500 mls/hr 09/12/24 12:27 IV 09/12/24 12:28 ONCE ONE Ketorolac Tromethamine 15 mg 09/12/24 11:27 09/12/24 11:40 Ketorolac 30mg/Ml Vial IV 09/12/24 11:28 15 mg ONCE ONE Administration ORDERS Category Date Time Status POCUS Point of Care (ER Only) Stat Exams 09/12/24 11:12 Completed CBC w/Auto Diff [Complete Blood Count Auto Diff] Stat Lab 09/12/24 11:10 Completed CMP [Comprehensive Metabolic Panel] Stat Lab 09/12/24 11:10 Completed Lactic Acid Stat Lab 09/12/24 11:36 Completed Blood Culture Stat Micro 09/12/24 11:47 Received Medical Decision Narrative: 64-year-old male history of hypertension, hyperlipidemia, schizoaffective disorder, skin and soft tissue infections presenting with left upper extremity swelling. He states this been going on for about 2 weeks. He states that he fell while walking and landed on his left upper extremity and states that there is a dark spot, in his hand where he thinks the swelling started. Able to range the extremity without issue, no point tenderness, but states that the swelling is causing mild pain throughout his entire arm. He is mostly concerned about a blood clot, so came in for that with EMS. History was obtained via conversation with patient and EMS. On arrival, patient hemodynamically stable, alert, oriented x4, appropriate, GCS 15, moving all extremities spontaneously, pupils equal and reactive to light. Full physical exam performed and significant for disheveled, clinically well appearing male who is in no acute distress. Extensive erythema and edema from the elbow down to the digits. No evidence of fluctuance. Differential includes cellulitis, abscess, DVT, among others. Patient placed on continuous cardiac monitoring and continuous pulse ox with initial blood pressure 142/60, heart rate 101, saturation 98% on room air. Patient was given fluid bolus for symptomatic management and correction of underlying abnormalities. Workup independently interpreted and significant for normal white count, mild hyponatremia 124, this was repleted with IV fluids including saline and LR. Lactate 3.1, normal LFTs otherwise. On independent interpretation of imaging, patient has extensive cellulitis of his left upper extremity. No evidence of DVT. Given 1500 mg of Dalvance. On reevaluation, patient's tachycardia improved, patient feeling much better after fluid. Tissue perfusion reassessment performed within 3 hours, patient mentating, following commands, good capillary refill and hemodynamically stable. Given patient presentation, workup, history, this most likely represents extensive cellulitis of the left upper extremity. Because patient still clinically well, no systemic signs or symptoms and tachycardia improved, appropriate for outpatient management. Because patient at baseline without signs or symptoms of clinical decompensation, deemed appropriate for discharge. Results were relayed to patient who voiced understanding and were agreeable to outpatient management and follow up. I discussed my clinical impression with patient and answered all questions. At this time, the evidence for any other entities in the differential is insufficient to warrant any further testing or ED observation. This was explained as well. Advisory was given that persistent or worsening symptoms require further evaluation. I confirmed the understanding of this discussion. Database Administrator disclaimer Much of this encounter note is an electronic vehicle assembler spoken language to printed text. Electronic vehicle assembler of the spoken language may permit errors. Although I have reviewed the note, some errors may still exist. Procedures Limited Ultrasound Indication:: Limited soft tissue ultrasound Indication: Soft tissue swelling, pain after fall Identified structures: Location: Left upper extremity soft tissue structures Findings: Extensive cellulitis of the left upper extremity from the elbow down to the digits with no evidence of phlegmon, abscess, or gas Impression: Extensive cellulitis of the left upper extremity Images were saved to permanent archive The study was technically adequate Soft Tissue CPT Codes: CPT Neck: 41465-43 CPT Upper extremity: 83831-30 CPT Axilla: 15298-98 CPT Chest wall: 68836-49 CPT Breast: 66384-87-NG/LT (complete), 01975-37-NN/LT (limited), CPT Upper Back: 62380-19 CPT Lower Back: 92639-24 CPT Abdominal Wall: 92691-89 CPT Pelvic Wall: 47551-95 CPT Lower Extremity: 59684-71 CPT Other Soft Tissue: 70716-00 This study was performed by me, and I personally interpreted all images/videos. Based on my clinical judgement, these images were adequate and did not necessitate further imaging. Views:: Limited DVT ultrasound Indication: Limited compression ultrasonography of the left upper extremity was performed to evaluate for non-compressibility of the deep veins in the patient. The ultrasound was performed with the following indications, as noted in the H&P: Left upper extremity swelling and redness Identified structures: [RIGHT or LEFT or BILATERAL] [common femoral vein, femoral vein, popliteal vein were examined.] [Ulnar vein, radial vein, cephalic vein, basilic vein, axillary vein.] Findings: Upper extremity: Right UV[Good compressibility] Right RV: [Good compressibility] Right Cephalic vein: [Good compressibility] Right Basilic vein: [Good compressibility] Right Axillary vein: [Good compressibility] Left UV[Good compressibility] Left RV: [Good compressibility] Left Cephalic vein: [Good compressibility] Left Basilic vein: [Good compressibility] Left Axillary vein: [Good compressibility] Lower Extremity: Right CFV: [Good compressibility] Right FV: [Good compressibility] Right Popliteal vein: [Good compressibility] Left CFV: [Good compressibility] Left FV [Good compressibility] Left Popliteal vein: [Good compressibility] Impression: [Normal DVT ultrasound without evidence of DVT] Images [were saved] to permanent archive The study [was] technically adequate CPT: 97808-22-AU 13026-85-ZK 01943-34 (complete bilateral study) This study was performed by me, and I personally interpreted all images/videos. Based on my clinical judgement, these images were [adequate] and [did not] necessitate further imaging Critical Care Critical Care Time Critical Care Time: No
[2024-09-12 11:56] LABS: Lactic Acid 3.1 mmol/L (0.7-2.1)
[2024-09-12 12:00] VITALS: PULSE 92; O2SAT 97
[2024-09-12 12:30] VITALS: PULSE 89; O2SAT 98
[2024-09-12] MEDS: DALBAVANCIN HCL 1,500 MG in DEXTROSE 5 % IN WATER 250 ML 500 MG IV (12:45)
[2024-09-12] MEDS: 0.9 % SODIUM CHLORIDE 1000ML 1,000 ML 999 ML IV (12:59)
[2024-09-12 13:58] VITALS: BP 132/78; PULSE 75; RESP 17; TEMP 36.8; O2SAT 98
[2024-09-12 15:40] LABS: Reflex Lactic Add Lactic Reflex
== END 2024-09-12 14:03 | disposition home or self-care (01) ==
PROVIDERS: Emergency Provider Emergency Medicine; PCP Nurse Practitioner Family
DX: L03.114 Cellulitis of left upper limb (principal); R00.0 Tachycardia, unspecified; R22.32 Localized swelling, mass and lump, left upper limb; E87.1 Hypo-osmolality and hyponatremia
CPT/HCPCS: 80053; 83605; 85025; 87040; 96361; 96374; 96375; 99284; J0875; J1885; J7030; J7060; J7120

== ENCOUNTER 2024-10-02 17:47 | Inpatient (IN) | payer MEDICARE, OTHER, SELFPAY ==
[2024-10-02] VITALS (8 sets, daily range): BP systolic 125–140; BP diastolic 55–72; PULSE 87–106; RESP 16–20; TEMP 36.4–37.1; O2SAT 95–99; BMI 24.4; BMI 23.2
--- NOTE | 2024-10-02 18:08 | CT_ITS ---
PROCEDURE INFORMATION: Exam: CT Left Upper Extremity With Contrast, Elbow Exam date and time: 10/02/2024 6:43 PM Age: 64 years old Clinical indication: Swelling; Arm, lower and arm, upper; Left; Additional info: L arm pain/swell, tx for cellulitis failed, fall TECHNIQUE: Imaging protocol: Computed tomography of the left upper extremity with contrast. Exam focused on the elbow. Radiation optimization: All CT scans at this facility use at least one of these dose optimization techniques: automated exposure control; mA and/or kV adjustment per patient size (includes targeted exams where dose is matched to clinical indication); or iterative reconstruction. Contrast material: ISOVUE; Contrast volume: 75 ml; Contrast route: IV; COMPARISON: CT FOREARM LT W CON 10/02/2024 6:43 PM FINDINGS: Bones/joints: No periosteal thickening or reactive changes. No acute fracture or dislocation. No effusion. Soft tissues: Subcutaneous fat stranding from mid arm to visualized hand. No discrete drainable fluid collection. IMPRESSION: 1. No acute osseous findings identified. 2. Subcutaneous edema/cellulitis from mid arm to hand.
[2024-10-02 18:22] LABS: Albumin Level 3.5 g/dl (3.5-5.0); Basophils % 0.3 % (0.1-2.0); Chloride 92 mmol/L (98-107); Eosinophils # 0.2 Kmm3 (0.0-0.4); Eosinophils % 2.1 % (0.1-12.0); Hematocrit 24.7 % (42.0-52.0); Hemoglobin 8.1 g/dL (14.1-18.0); Immature Granulocytes # 0.05 10^3uL; Immature Granulocytes % 0.5 %; Lymphocytes # 2.1 K/mm3 (0.7-4.5); Mean Corpuscular HGB Conc 32.8 g/dL (31.8-35.4); Mean Corpuscular Hemoglobin 20.6 pg (27.0-31.2); Mean Corpuscular Volume 62.8 fl (80-94); Mean Platelet Volume 10.5 fl (7.4-10.4); Monocytes # 0.6 K/mm3 (0.1-1.0); Monocytes % 6.8 % (1.7-9.3); Neutrophils # 6.2 K/mm3 (1.8-7.8); Neutrophils % 67.3 % (37.0-80.0); Nucleated Red Blood Cells # 0.04 10^3/uL; Nucleated Red Blood Cells % 0.4 %; Platelet Count 233 K/mm3 (142-424); Red Blood Count 3.93 M/mm3 (4.60-6.20); Red Cell Distribution Width 16.2 % (11.5-17.5); Red Cell Distribution Width-SD 35.2 fL; Sodium 126 mmol/L (136-145); White Blood Count 9.2 K/mm3 (4.8-10.8)
[2024-10-02 18:23] LABS: Potassium 3.7 mmoL/L (3.5-5.1)
[2024-10-02 18:25] LABS: Activated Partial Thrombo Time 27.1 seconds (22.8-30.6); Alanine Aminotransferase 65 U/L (12-78); Anion Gap 8.7 mEq/L (5-15); Aspartate Amino Transferase 61 U/L (17-59); Blood Urea Nitrogen 11 mg/dl (9-20); Carbon Dioxide 29 mmol/L (22.0-30.0); Creatinine Clearance Estimated 82 mL/min (50-200); Estimated Glomerular Filt Rate 113 ml/min (>60); GFR (African American) 137 ML/MIN (>60); INR 1.09 (0.9-1.1)
[2024-10-02 18:26] LABS: Albumin/Globulin Ratio 0.9 (1.1-1.8); Alkaline Phosphatase 93 U/L (38-126); Bilirubin,Total 1.9 mg/dl (0.2-1.3); Calcium 10.8 mg/dl (8.4-10.2); Globulin 3.7 g/dL (1.3-3.2); Glucose 171 mg/dl (74-100); Total Protein,Serum 7.2 g/dl (6.3-8.2)
[2024-10-02 18:31] LABS: D-Dimer 1.43 ug/mL (0.0-0.5)
[2024-10-02 18:32] LABS: C-Reactive Protein 15.1 mg/L (0-4)
[2024-10-02] MEDS: SODIUM CHLORIDE 0.9% 10ML SYR (RAD ONLY) 10 ML IV (18:46)
[2024-10-02] MEDS: IOPAMIDOL-370 (76%);100ML BOTTLE 75 ML IV (18:47)
[2024-10-02 18:49] LABS: Erythrocyte Sedimentation Rate 125 mm/hr (0-20)
--- NOTE | 2024-10-02 19:22 | HMH.EDGENADL ---
Discharge Plan Disposition Patient Disposition: Admitted Condition: Good Prescriptions Prescriptions: No Action hydrochlorothiazide 25 mg Tablet 25 mg PO DAILY olanzapine [Zyprexa] 20 mg Tablet 20 mg PO HS temazepam 15 mg capsule 15 mg PO HSP PRN (Reason: Sleep) metformin 500 MG tablet 500 mg PO BID folic acid 0.4 MG tablet 0.4 mg PO DAILY mirtazapine 15 MG tablet 15 mg PO HS olanzapine 5 MG tablet,disintegrating 5 mg PO DAILY loperamide [Anti-Diarrheal (loperamide)] 2 mg tablet 2 mg PO DIRECTED Rx Instructions: 1 tablet by mouth for loose stool not to exceed 8mg/day cholecalciferol (vitamin D3) 1,250 mcg (50,000 unit) capsule 1,250 mcg PO WEEKLY Rx Instructions: once weekly on MONDAY Referrals Follow up/Referrals: Provider,Referral, MD [Primary Care Provider] - See instructions Clinical Impressions Clinical Impression: Cellulitis, Altered mental status Print Language Print Language: Micronesian Discharge ED Provider: Radha Cantu General Adult HPI General Chief complaint: Extremity Injury, Upper Stated complaint: Edema in Left arm Time Seen by Provider: 10/02/24 17:51 Mode of Arrival: EMS Source of Information: Patient Description of Symptoms (Recalled from ER Triage Doc. by RN): pt is here today for left arm swelling and and left shoulder pain s/p fall 3 weeks ago, pt is alox4 has hx of dm 2, bipolar, and schizo as well as comes from the [facility] History of Present Illness HPI narrative: This patient is a 64-year-old male with history of schizoaffective disorder, hypertension, and diabetes presenting to the emergency department for evaluation with concern for left arm pain and swelling. Patient reports that he had a fall several weeks ago and injured his left shoulder. He notes that his left shoulder has been painful since then. He was evaluated here in August for left arm pain after a fall, at which point x-ray of the humerus was obtained that was negative for acute fracture. He was evaluated here 09/12/24 for left arm pain and swelling, at which bedside DVT ultrasound was obtained which was negative. He was found to be anemic but no indication for transfusion. There was concern for cellulitis, so he was treated with Dalvance. He was discharged home. Since then, he notes that the swelling has gotten progressively worse in his lower arm and he continues to have pain in the left shoulder. He does not have any pain in his lower arm, only in the left shoulder. No recent other falls, no numbness, tingling, fevers, or other concerns. Related Data Home Medications ?Medication ?Instructions ?Recorded ?Confirmed folic acid 400 mcg tablet 0.4 mg PO DAILY Supplement 10/02/20 09/12/24 metformin 500 mg tablet 500 mg PO BID 10/02/20 09/12/24 mirtazapine 15 mg tablet 15 mg PO HS 10/02/20 09/12/24 olanzapine 5 mg disintegrating 5 mg PO DAILY 10/02/20 09/12/24 tablet hydrochlorothiazide 25 mg tablet 25 mg PO DAILY 11/12/23 09/12/24 olanzapine 20 mg tablet (Zyprexa) 20 mg PO HS 11/12/23 09/12/24 temazepam 15 mg capsule 15 mg PO HSP PRN Sleep 11/13/23 09/12/24 cholecalciferol (vitamin D3) 1,250 1,250 mcg PO WEEKLY 09/12/24 09/12/24 mcg (50,000 unit) capsule loperamide 2 mg tablet 2 mg PO DIRECTED 09/12/24 09/12/24 (Anti-Diarrheal (loperamide)) Allergies Allergy/AdvReac Type Severity Reaction Status Date / Time No Known Allergies Allergy Verified 10/02/20 01:18 [facility] Disclaimer: The information contained in this section may have been updated after the patient was seen, as this information can be updated by other users. Medical History No significant past medical history Social History Smoking Status: Current every day smoker alcohol intake: never current occupational status: unemployed Travel in the last 8 weeks?: None Have you lived/traveled outside US in past 30 days?: No Contact w/someone who lives/traveled outside US past 30 days?: No Exposure to someone with infectious disease in past 14 days?: No Do you have a fever (greater than 100.4 F or 38 C)?: No Have you tested positive for COVID-19?: No Exposed to someone with COVID-19 in past 14 days?: No Do you have a sore throat?: No Do you have a cough?: No Do you have any weakness?: No Do you have any diarrhea?: No Are you experiencing any unusual bleeding?: No Do you have any muscle aches/pain?: No Do you have any abdominal pain?: No Are you experiencing loss of taste or smell?: No Other Medical History Have you received the Flu Vaccine for this season: No Have you received the Pneumonia Vaccine: No ROS Obtained: Yes All systems reviewed & no additional complaints except as documented Physical Exam General General appearance: alert and in no apparent distress Head Head exam: atraumatic and normocephalic Eye Eye exam: Present normal appearance, PERRL and EOMI ENT ENT exam: Present normal exam, normal oropharynx, mucous membranes moist and normal external ear exam Neck Neck exam: Present normal inspection, full ROM and trachea midline; Absent tenderness Chest Chest inspection: Present normal inspection and symmetric chest wall rise; Absent tenderness Respiratory Respiratory exam: Present normal lung sounds bilaterally; Absent respiratory distress, wheezes, stridor or accessory muscle use Cardiovascular Cardiovascular exam: Present regular rate and normal rhythm Abdominal Exam Abdominal exam: Present soft; Absent distention, tenderness or guarding Extremities Exam Extremities exam: Present full ROM, tenderness, normal capillary refill, edema and other (Left arm swelling, especially by the hand, wrist, and distal forearm. Intact pulses distally, intact capillary refill and sensation. No tenderness of his lower arm, no redness or warmth. He does have tenderness to palpation of the left shoulder joint) Back Exam Back exam: Present normal inspection and full ROM; Absent tenderness Neurological Exam Neurological exam: Present alert, oriented X3, CN II-XII intact and normal gait; Absent motor sensory deficit Psychiatric Psychiatric exam: Present normal affect and normal mood Skin Skin exam: Present warm and dry Medical Decision Making Medical Records Medical records reviewed: Yes I reviewed the patient's medical records. Screening: Per USPSTF and CDC recommendations, given the prevalence of disease in our region, it is our hospital?s policy to screen for HIV and viral Hepatitis for all patients aged 18 and over and those with ongoing risk factors. Massimo Inquiry Pt receiving controlled substance: No Vital Signs: 10/02/24 17:58 10/02/24 18:00 10/02/24 18:30 Temperature 97.5 F L Temperature Source Oral Pulse Rate 99 H 103 H Pulse Rate [Left Radial] 106 H Respiratory Rate 20 Blood Pressure 134/61 125/66 Blood Pressure [Right Arm] 136/72 Blood Pressure Mean [Right Arm] 93 02 Sat by Pulse Oximetry 95 97 97 Oxygen Delivery Method Room Air Room Air Room Air 10/02/24 19:00 10/02/24 19:30 10/02/24 20:00 Temperature Temperature Source Pulse Rate 91 H 89 89 Pulse Rate [Left Radial] Respiratory Rate Blood Pressure 140/67 134/57 L 127/55 L Blood Pressure [Right Arm] Blood Pressure Mean [Right Arm] 02 Sat by Pulse Oximetry 99 97 98 Oxygen Delivery Method Room Air Room Air Room Air Lab Data Lab results reviewed: Yes I reviewed the patient's lab results. Lab Results 10/02/24 17:50: WBC 9.2, RBC 3.93 L, Hgb 8.1 L, Hct 24.7 L, MCV 62.8 L, MCH 20.6 L, MCHC 32.8, RDW 16.2, Plt Count 233, MPV 10.5 H, Neut % (Auto) 67.3, Lymph % (Auto) 23.0, [place] % (Auto) 6.8, Eos % (Auto) 2.1, Baso % (Auto) 0.3, Neut # (Auto) 6.2, Lymph # (Auto) 2.1, [place] # (Auto) 0.6, Eos # (Auto) 0.2, Baso # (Auto) 0.0, ESR 125 H, PT 12.0, INR 1.09, APTT 27.1, D-Dimer 1.43 H, Sodium 126 L, Potassium 3.7, Chloride 92 L, Carbon Dioxide 29, Anion Gap 8.7, BUN 11, Creatinine 0.70, Estimated Creat Clear 82, Estimated GFR 113, Est GFR ( Amer) 137, Glucose 171 H, Calcium 10.8 H, Total Bilirubin 1.9 H, AST 61 H, ALT 65, Alkaline Phosphatase 93, C-Reactive Protein 15.1 H, Total Protein 7.2, Albumin 3.5, Globulin 3.7 H, Albumin/Globulin Ratio 0.9 L 10/02/24 17:50 10/02/24 17:50 Orders (Tests/Meds): ED MEDICATIONS Generic Name Dose Route Start Last Admin Trade Name Freq PRN Reason Stop Dose Admin Ceftriaxone Sodium 2 gm/ 100 mls @ 200 mls/hr 10/02/24 20:30 Sodium Chloride IV 10/02/24 20:59 ONCE ONE Vancomycin HCl 2,000 mg/ 250 mls @ 125 mls/hr 10/02/24 20:45 Sodium Chloride IV 10/02/24 22:44 ONCE ONE Miscellaneous 1 each 10/02/24 20:30 10/02/24 20:43 Vancomycin Consult Request NOTAPPLIC 11/01/24 20:29 1 each [facility] Administration Discontinued Medications Generic Name Dose Route Start Last Admin Trade Name Tienq PRN Reason Stop Dose Admin Iopamidol 75 ml 10/02/24 18:45 10/02/24 18:47 Iopamidol-370 (76%);100ml Bottle IV 10/02/24 18:46 75 ml ONCE ONE Administration Sodium Chloride 10 ml 10/02/24 18:45 10/02/24 18:46 Sodium Chloride 0.9% 10ml Syr (Rad Only) IV 10/02/24 18:46 10 ml ONCE ONE Administration ORDERS Category Date Time Status CT elbow LT w con Stat Cat Scan 10/02/24 18:[address] forearm LT w con Stat Cat Scan 10/02/24 18:[address] hand LT w con Stat Cat Scan 10/02/24 18:[address] humerus LT w con Stat Cat Scan 10/02/24 18:[address] shoulder LT w con Stat Cat Scan 10/02/24 18:[address] wrist LT w con Stat Cat Scan 10/02/24 18:08 Taken POCUS Point of Care (ER Only) Stat Exams 10/02/24 20:09 Ordered Activated Partial Thrombo Time Stat Lab 10/02/24 17:50 Completed CBC w/Auto Diff [Complete Blood Count Auto Diff] Stat Lab 10/02/24 17:50 Completed CMP [Comprehensive Metabolic Panel] Stat Lab 10/02/24 17:50 Completed CRP [C-Reactive Protein] Stat Lab 10/02/24 17:50 Completed D-Dimer Stat Lab 10/02/24 17:50 Completed ESR [Erythrocyte Sedimentation Rate] Stat Lab 10/02/24 17:50 Completed Prothrombin Time INR Stat Lab 10/02/24 17:50 Completed UA [Urinalysis and Microscopic] Stat Lab 10/02/24 20:34 Received Blood Culture Stat Micro 10/02/24 20:40 Received Medical Decision Narrative: In summary, this patient is a 64-year-old male presenting to the Emergency Department for evaluation of left shoulder pain, left arm swelling for weeks. Differential diagnoses considered include but are not limited to fracture, vascular injury, cellulitis, dependent edema, abscess. Ruling out the most morbid conditions drove assessment. It should be noted patient's history includes schizoaffective disorder, diabetes, and hypertension which may or may not be at goal therapy. This complicates all aspects of care by increasing patient's risk for morbidity. I reviewed patient's past medical records and noted evaluation in August for left arm pain after a fall, at which point x-ray was negative, as well as evaluation on September 12 for left arm pain and swelling, at which point DVT ultrasound at bedside was negative as detailed in HPI. He was treated for cellulitis and discharged back to [facility]. On exam, the patient is lying in bed in no acute distress. He has left shoulder tenderness to palpation but does have intact range of motion. He has significant left arm swelling, especially distally in his fingers, wrist, and distal forearm. He has intact pulses, capillary refill, and sensation. No redness, warmth, or skin rashes. Workup included CBC, CMP, ESR, CRP, and CTs of the left upper extremity with IV contrast. I did have an interactive discussion with Lisa Sun NP that helps care for patients at [facility]. She advises the patient had also been on oral doxycycline with no improvement in his condition and she was concerned about altered mental status that had started yesterday. She states that his mood is off and he seems confused. I independently interpreted CT scan prior to the radiologist read and noted findings concerning for cellulitis without obvious abscess, no acute fracture. Please see their read for final interpretation. Labs were obtained that demonstrated reassuring CBC with improved anemia from prior lab evaluation with a hemoglobin of 8.1. He does have elevated inflammatory markers. He has hyponatremia which is also improved from prior labs. Very mild hypercalcemia noted. Ultimately given that the patient had Dalvance and then an outpatient course of Doxy with no improvement in his cellulitis, I feel he is failed outpatient treatment. The altered mental status also is a concerning factor. Given this, we will plan to admit him to the hospital for IV antibiotics. I had an interactive discussion with the hospitalist who admitted the patient in stable condition. I started the patient on IV vancomycin and Rocephin prior to admission. Critical Care Critical Care Time Critical Care Time: No
--- NOTE | 2024-10-02 20:13 | PC.NURSE ---
Patient educated on need for urine; denies having to void at this time.
[2024-10-02] MEDS: VANCOMYCIN CONSULT REQUEST 1 EACH NOTAPPLIC ×2 (20:43→21:01)
[2024-10-02 20:45] LABS: Microscopic, Urine URINE MICROSCOPIC (MICROSCOPIC)
--- NOTE | 2024-10-02 20:50 | P.HP_ITS ---
<Statement entered by Jason Jones MD - 10/07/24 17:01> Personally evaluated the patient and agree with the plan of care as outlined by the BUSINESS ADVISOR. History of Present Illness *Admission Date: 10/02/24 *Reason for visit:: Swelling to left arm *History of present illness: This is a 64-year-old male who has a past medical history significant for anemia, hypertension, schizoaffective disorder, and diabetes who presents from [facility] with a chief complaint of swelling to the left upper extremity. Due to patient's symptoms, he presented to the emergency room for evaluation. While in the emergency room, CT scan of the wrist, shoulder, humerus, hand, and forearm were negative for any acute findings. CT scan did reveal subcutaneous edema/cellulitis from the mid arm to the hand. Patient has been seen in the past for this cellulitis and treated with Dalvance, and while at his nursing facility patient was also given doxycycline. Despite antibiotic therapy, patient continues to have swelling to his left upper extremity. As a result, hospital medicine was contacted for further management. During my evaluation of the patient, patient states his symptomology has been going on for more than 3 weeks. He states he has some slight pain to his left upper extremity and it has been without any drainage or trauma. Furthermore, patient is denying any fever, chills, rigors, chest pain, shortness of breath, dyspnea, lightheadedness, dizziness, or diarrhea. Additional pertinent vitals obtained include a red blood cell count of 3.93, hemoglobin 8.1, hematocrit 24.7, ESR 125, sodium of 126 (was 124), chloride of 92, blood glucose 171, calcium of 10.8, total bilirubin 1.9, AST of 61, and C-reactive protein of 15.1. [facility] Disclaimer: The information contained in this section may have been updated after the patient was seen, as this information can be updated by other users. Medical History (Updated 10/03/24 @ 13:51 by ANUP Tate) Diabetes mellitus No significant past medical history Social History Smoking Status: Current every day smoker alcohol intake: never current occupational status: unemployed Travel in the last 8 weeks?: None Have you lived/traveled outside US in past 30 days?: No Contact w/someone who lives/traveled outside US past 30 days?: No Exposure to someone with infectious disease in past 14 days?: No Do you have a fever (greater than 100.4 F or 38 C)?: No Have you tested positive for COVID-19?: No Exposed to someone with COVID-19 in past 14 days?: No Do you have a sore throat?: No Do you have a cough?: No Do you have any weakness?: No Do you have any diarrhea?: No Are you experiencing any unusual bleeding?: No Do you have any muscle aches/pain?: No Do you have any abdominal pain?: No Are you experiencing loss of taste or smell?: No Other Medical History Have you received the Flu Vaccine for this season: No Have you received the Pneumonia Vaccine: No Review of Systems Review of Systems Review of systems:: pertinent systems reviewed and negative unless documented below Constitutional Constitutional: Reports system reviewed and no additional complaints, except as documented Eyes Eyes: Reports system reviewed and no additional complaints, except as documented ENT Ears, Nose, Mouth, and Throat: Reports system reviewed and no additional complaints, except as documented *Cardiovascular Cardiovascular: Reports system reviewed and no additional complaints, except as documented *Respiratory Respiratory: Reports system reviewed and no additional complaints, except as documented *Gastrointestinal Gastrointestinal: Reports system reviewed and no additional complaints, except as documented *Genitourinary Genitourinary: Reports system reviewed and no additional complaints, except as documented *Musculoskeletal Musculoskeletal: Reports system reviewed and no additional complaints, except as documented Integumentary/Breasts Skin/Breast: Reports erythema and Reports skin swelling *Neurologic Neurologic: Reports system reviewed and no additional complaints, except as documented Psychiatric Psychiatric: Reports system reviewed and no additional complaints, except as documented Endocrine Endocrine: Reports system reviewed and no additional complaints, except as documented Hematologic/Lymphatic Hematologic/Lymphatic: Reports system reviewed and no additional complaints, except as documented Allergic/Immunologic Allergic/Immunologic: Reports system reviewed and no additional complaints, except as documented Meds Home Medications and Allergies Home Medications ?Medication ?Instructions ?Recorded ?Confirmed ?Type folic acid 400 mcg tablet 0.4 mg PO DAILY 10/02/20 10/02/24 History metformin 500 mg tablet 500 mg PO BID 10/02/20 10/02/24 History mirtazapine 15 mg tablet 15 mg PO HS 10/02/20 10/02/24 History hydrochlorothiazide 25 mg tablet 25 mg PO DAILY 11/12/23 10/02/24 History olanzapine 20 mg tablet (Zyprexa) 20 mg PO HS 11/12/23 10/02/24 History temazepam 15 mg capsule 15 mg PO HSP PRN Sleep 11/13/23 10/02/24 History cholecalciferol (vitamin D3) 1,250 1,250 mcg PO WEEKLY 09/12/24 10/02/24 History mcg (50,000 unit) capsule loperamide 2 mg tablet 2 mg PO DIRECTED 09/12/24 10/02/24 History (Anti-Diarrheal (loperamide)) lisinopril 10 mg tablet 10 mg PO DAILY 10/02/24 10/02/24 History olanzapine 5 mg tablet 5 mg PO DAILY 10/02/24 10/02/24 History New Prescriptions to Start Prescriptions: Allergies Allergy/AdvReac Type Severity Reaction Status Date / Time No Known Allergies Allergy Verified 10/02/20 01:18 Exam Data for Last 24 hours Vital signs and Labs for Last 24 Hours: Temp Pulse Resp BP Pulse Ox O2 Del Method 97.5 F L 89 20 127/55 L 98 Room Air 10/02/24 17:58 10/02/24 20:00 10/02/24 17:58 10/02/24 20:00 10/02/24 20:00 10/02/24 20:00 Laboratory Results - last 24 hr 10/02/24 17:50: WBC 9.2, RBC 3.93 L, Hgb 8.1 L, Hct 24.7 L, MCV 62.8 L, MCH 20.6 L, MCHC 32.8, RDW 16.2, Plt Count 233, MPV 10.5 H, Neut % (Auto) 67.3, Lymph % (Auto) 23.0, Lynn % (Auto) 6.8, Eos % (Auto) 2.1, Baso % (Auto) 0.3, Neut # (Auto) 6.2, Lymph # (Auto) 2.1, Lynn # (Auto) 0.6, Eos # (Auto) 0.2, Baso # (Auto) 0.0, ESR 125 H, PT 12.0, INR 1.09, APTT 27.1, D-Dimer 1.43 H, Sodium 126 L, Potassium 3.7, Chloride 92 L, Carbon Dioxide 29, Anion Gap 8.7, BUN 11, Creatinine 0.70, Estimated Creat Clear 82, Estimated GFR 113, Est GFR ( Amer) 137, Glucose 171 H, Calcium 10.8 H, Total Bilirubin 1.9 H, AST 61 H, ALT 65, Alkaline Phosphatase 93, C-Reactive Protein 15.1 H, Total Protein 7.2, Albumin 3.5, Globulin 3.7 H, Albumin/Globulin Ratio 0.9 L I & O for Last 24 hours: Intake & Output 09/29/24 09/30/24 10/01/24 10/02/24 23:59 23:59 23:59 23:59 Weight 79.379 kg Constitutional Constitutional: no acute distress, chronically ill appearing and cooperative *Routine HEENT Exam Head: Present normocephalic and atraumatic Eye: Present EOMI ENT: Present mucous membranes moist *Routine Neck Exam Neck: Present supple, full ROM and trachea midline *Routine Respiratory Exam Respiratory: Present CTA bilaterally, able to speak in complete sentences and symmetric chest movement *Routine Cardiovascular Exam Cardiovascular: Present RRR, Normal S1 and Normal S2 *Routine Abdominal Exam Abdominal: Present soft and normoactive bowel sounds *Routine Rectal Exam Rectal:: deferred *Routine Genitalia Exam Genitalia:: deferred *Routine Extremities Exam Extremities: Present edema, full ROM, pulses intact and normal capillary refill Routine Back/Spine/Pelvis Exam Back/Spine: Present full ROM Back image: 2 1. Extensive edema with mild erythema noted to left upper extremity. Areas with free of any drainage pulses are intact capillary refills intact *Routine Skin Exam Skin: Present dry and warm *Routine Neurological Exam Neurological: Present alert, moving all extremities and normal speech Routine Psychiatric Exam Psychiatric: Present normal affect, normal thought process, cooperative, good insight and good judgment H&P: Result Impressions This is a 64-year-old male who presents with refractory cellulitis. Patient has failed antibiotic therapy x 2 Assessment and Plan *Assessment and plan (1) Cellulitis of arm, left: Status: Acute Category: Medical Code(s): L03.114 - Cellulitis of left upper limb (2) Anemia: Status: Acute Qualifiers: Anemia type: unspecified type Qualified Code(s): D64.9 - Anemia, unspecified Category: Medical Code(s): D64.9 - Anemia, unspecified (3) Hyponatremia: Status: Acute Category: Medical Code(s): E87.1 - Hypo-osmolality and hyponatremia (4) Elevated bilirubin: Status: Acute Category: Medical Code(s): R17 - Unspecified jaundice (5) Elevated erythrocyte sedimentation rate: Status: Acute Category: Medical Code(s): R70.0 - Elevated erythrocyte sedimentation rate (6) Elevated C-reactive protein (CRP): Status: Acute Category: Medical Code(s): R79.82 - Elevated C-reactive protein (CRP) (7) Hyperglycemia: Status: Acute Category: Medical Code(s): R73.9 - Hyperglycemia, unspecified Plan Assessment: Nonpurulent left upper extremity cellulitis: Patient has failed outpatient therapy x2 - 1 g cefepime IV twice daily - Obtain blood cultures x 2 - Vancomycin 1 g IV twice daily -Left upper extremity venous Doppler -Will keep left upper extremity elevated -Patient has MRSA risk in the penitentiary Microcytic hypochromic anemia - Hemoglobin hematocrit appear to be stable - May be in the setting of iron deficiency - Will obtain anemia profile - Will trend hemoglobin hematocrit daily - Patient is currently denying any active bleeding Hyponatremia - May be in the setting of hydrochlorothiazide therapy - Sodium is improved from last evaluation - Will obtain urine sodium - Will trend sodium every 6 hours and not allowed to replenish no more than 6 mEq-to 8 mEq in a 24-hour time span - Normal saline at 100 mL an hour - Will hold hydrochlorothiazide Elevated bilirubin - Appears to be chronic Elevated CRP/ESR -Most likely in setting of cellulitis - Will trend CRP - Will obtain procalcitonin Hyperglycemia - Most likely in the setting of diabetes -Sliding scale insulin ACH S with mild scale coverage Plan: Admit patient to the MedSurg unit Activity as tolerated Cardiac/1800 ADA diet CBC/BMP daily 40 mg Lovenox subcu daily for DVT prophylaxis 5 mg of [place] p.o. every 4 hours PMR pain 21 mg nicotine patch daily 4 mg Zofran IV push every 8 hours for nausea vomit Full code I will discussed this case with attending physician Dr. Jones and I look forward to more input
[2024-10-02 20:55] LABS: Appearance,Urine CLEAR (Clear); Bilirubin,Urine Negative (Negative); Blood, Urine Negative (Negative); Color,Urine YELLOW (Yellow); Glucose,Urine (UA) Negative (Negative); Ketones,Urine Negative (Negative); Leukocyte Esterase,Urine Negative (Negative); Nitrate,Urine Negative (Negative); PH,Urine 6.5 (5.0-8.5); Protein,Urine Negative (Negative); Specific Gravity, Urine <= 1.005 (1.005-1.030)
[2024-10-02] MEDS: CEFTRIAXONE SODIUM 2 GM in 0.9 % SODIUM CHLORIDE 100 ML IV (20:57)
[2024-10-02] MEDS: VANCOMYCIN HCL 2,000 MG in 0.9 % SODIUM CHLORIDE 250 ML 125 MG IV (20:57)
--- NOTE | 2024-10-02 20:58 | PC.NURSE ---
REPORT CALLED TO [facility] JOSEPH
[2024-10-02 21:17] LABS: Sodium 128 mmol/L (136-145)
[2024-10-02 21:26] LABS: Bacteria,Urine Trace /lpf; Squamous Epithelial Cell,Urine Occasional #/hpf (0-5); WBC,Urine Occasional #/hpf (0-3)
[2024-10-02 22:13] LABS: POC Glucose,Bedside 149 (70-110)
[2024-10-02] MEDS: 0.9 % SODIUM CHLORIDE 1000ML 1,000 ML 100 ML IV (22:23)
[2024-10-03 04:00] VITALS: BP 125/70; PULSE 94; RESP 16; TEMP 36.7; O2SAT 96; BMI 23.8
--- NOTE | 2024-10-03 05:18 | PC.NURSE ---
Mostly alert and oriented, patient unsure of the year, very forgetful. Left upper extremity has edema +3, redenss noted. BLE discolored. Lung sounds clear. Room air. IV antibiotics and fluids throughout the night. Complained of pain in left shoulder, offered PRN medication, stated he only needed some heat, added heated blanket to the shoulder area by neck and patient rested in bed. Educated patient on elevating arm, agreed to keep on a pillow, but patient states holding his arm up too high hurts his shoulder. Patient calls out to use restroom, standby assist. Call light in reach.
[2024-10-03] MEDS: HYDROCODONE/APAP 5/325 MG TABLET 1 TAB PO (05:41)
[2024-10-03 05:55] LABS: POC Glucose,Bedside 140 (70-110)
[2024-10-03 06:52] LABS: Basophils % 0.5 % (0.1-2.0); Eosinophils # 0.2 Kmm3 (0.0-0.4); Eosinophils % 2.2 % (0.1-12.0); Hematocrit 22.9 % (42.0-52.0); Hemoglobin 7.5 g/dL (14.1-18.0); Immature Granulocytes # 0.05 10^3uL; Immature Granulocytes % 0.6 %; Lymphocytes # 1.4 K/mm3 (0.7-4.5); Lymphocytes % 16.6 % (10-50); Mean Corpuscular HGB Conc 32.8 g/dL (31.8-35.4); Mean Corpuscular Hemoglobin 20.8 pg (27.0-31.2); Mean Corpuscular Volume 63.6 fl (80-94); Mean Platelet Volume 10.6 fl (7.4-10.4); Monocytes # 0.8 K/mm3 (0.1-1.0); Monocytes % 9.5 % (1.7-9.3); Neutrophils # 5.8 K/mm3 (1.8-7.8); Neutrophils % 70.6 % (37.0-80.0); Nucleated Red Blood Cells # 0.05 10^3/uL; Nucleated Red Blood Cells % 0.6 %; Platelet Count 227 K/mm3 (142-424); Red Cell Distribution Width 16.3 % (11.5-17.5); Red Cell Distribution Width-SD 35.2 fL; Reticulocyte % (Auto) 1.8 % (0.9-3.2); White Blood Count 8.2 K/mm3 (4.8-10.8)
[2024-10-03 07:02] LABS: Anion Gap 8.4 mEq/L (5-15); Blood Urea Nitrogen 13 mg/dl (9-20); Calcium 10.2 mg/dl (8.4-10.2); Carbon Dioxide 29 mmol/L (22.0-30.0); Chloride 95 mmol/L (98-107); Creatinine Clearance Estimated 79 mL/min (50-200); Estimated Glomerular Filt Rate 84 ml/min (>60); GFR (African American) 102 ML/MIN (>60); Glucose 108 mg/dl (74-100); Potassium 4.4 mmoL/L (3.5-5.1); Sodium 128 mmol/L (136-145)
[2024-10-03 07:50] LABS: Vitamin B12 775 pg/mL (239-931)
--- NOTE | 2024-10-03 07:55 | EXP.PHA.CONS ---
Pharmacy Consult Date: 10/03/24 Time: 07:55 Referring provider: DR. OSUNA Reason for Consult:: VANCOMYCIN DOSING Allergies Allergy/AdvReac Type Severity Reaction Status Date / Time No Known Allergies Allergy Verified 10/02/20 01:18 Home Medications ?Medication ?Instructions ?Recorded ?Confirmed ?Type folic acid 400 mcg tablet 0.4 mg PO DAILY Supplement 10/02/20 10/02/24 History metformin 500 mg tablet 500 mg PO BID 10/02/20 10/02/24 History mirtazapine 15 mg tablet 15 mg PO HS 10/02/20 10/02/24 History hydrochlorothiazide 25 mg tablet 25 mg PO DAILY 11/12/23 10/02/24 History olanzapine 20 mg tablet (Zyprexa) 20 mg PO HS 11/12/23 10/02/24 History temazepam 15 mg capsule 15 mg PO HSP PRN Sleep 11/13/23 10/02/24 History cholecalciferol (vitamin D3) 1,250 1,250 mcg PO WEEKLY 09/12/24 10/02/24 History mcg (50,000 unit) capsule loperamide 2 mg tablet 2 mg PO DIRECTED 09/12/24 10/02/24 History (Anti-Diarrheal (loperamide)) lisinopril 10 mg tablet 10 mg PO DAILY 10/02/24 10/02/24 History olanzapine 5 mg tablet 5 mg PO DAILY 10/02/24 10/02/24 History New Prescriptions to Start Prescriptions: Height: 1.8 m Weight: 77.309 kg Laboratory Results:: Laboratory Results - last 24 hr 10/02/24 17:50: WBC 9.2, RBC 3.93 L, Hgb 8.1 L, Hct 24.7 L, MCV 62.8 L, MCH 20.6 L, MCHC 32.8, RDW 16.2, Plt Count 233, MPV 10.5 H, Neut % (Auto) 67.3, Lymph % (Auto) 23.0, [place] % (Auto) 6.8, Eos % (Auto) 2.1, Baso % (Auto) 0.3, Neut # (Auto) 6.2, Lymph # (Auto) 2.1, [place] # (Auto) 0.6, Eos # (Auto) 0.2, Baso # (Auto) 0.0, ESR 125 H, PT 12.0, INR 1.09, APTT 27.1, D-Dimer 1.43 H, Sodium 126 L, Potassium 3.7, Chloride 92 L, Carbon Dioxide 29, Anion Gap 8.7, BUN 11, Creatinine 0.70, Estimated Creat Clear 82, Estimated GFR 113, Est GFR ( Amer) 137, Glucose 171 H, Calcium 10.8 H, Total Bilirubin 1.9 H, AST 61 H, ALT 65, Alkaline Phosphatase 93, C-Reactive Protein 15.1 H 10/02/24 17:50: C-Reactive Protein 15.0 H, Total Protein 7.2, Albumin 3.5, Globulin 3.7 H, Albumin/Globulin Ratio 0.9 L 10/02/24 20:34: Urine Color Yellow, Urine Appearance Clear, Urine pH 6.5, Ur Specific [place] <= 1.005, Urine Protein Negative, Urine Glucose (UA) Negative, Urine Ketones Negative, Urine Blood Negative, Urine Nitrate Negative, Urine Bilirubin Negative, Urine Urobilinogen 1.0, Ur Leukocyte Esterase Negative, Urine WBC Occasional, Ur Squamous Epith Cells Occasional, Urine Bacteria Trace, Urine Sodium 44.0 10/02/24 20:52: Sodium 128 L 10/02/24 22:06: POC Glucose 149 H 10/03/24 05:38: POC Glucose 140 H 10/03/24 06:01: WBC 8.2, RBC 3.60 L, Hgb 7.5 L, Hct 22.9 L, MCV 63.6 L, MCH 20.8 L, MCHC 32.8, RDW 16.3, Plt Count 227, MPV 10.6 H, Neut % (Auto) 70.6, Lymph % (Auto) 16.6, [place] % (Auto) 9.5 H, Eos % (Auto) 2.2, Baso % (Auto) 0.5, Neut # (Auto) 5.8, Lymph # (Auto) 1.4, [place] # (Auto) 0.8, Eos # (Auto) 0.2, Baso # (Auto) 0.0, Retic Count (auto) 1.8, Sodium 128 L, Potassium 4.4, Chloride 95 L, Carbon Dioxide 29, Anion Gap 8.4, BUN 13, Creatinine 0.90 D, Estimated Creat Clear 79, Estimated GFR 84, Est GFR ( Amer) 102 D, Glucose 108 H D, Calcium 10.2 Medical History: Medical History (Updated 10/02/24 @ 20:59 by Mal Jimenez APRN) No significant past medical history Assessment and Plan Assessment and plan all Dx Assessment and Plan for all problems:: Pharmacokinetic dosing service Objective: Patient: Floor: Age: 64 yo Serum creatinine: 1 mg/dL Height: 70.9 Inches Weight (kg): 77.3 Assessment: IBW (kg): 75.07 Dosing wt(kg): 77.3 Estimated Creatinine clearance (ml/min): 77.2 CRCL method: Cockcroft and Gault using ibw(default). Drug selected: Vancomycin Loading dose (mg): 0 Vd (liters): 61.8 (factor used: 0.8 L/kg) Alvaro (hr-1): 0.068 Half life (hrs): 10.19 Recommended dose: 1250 mg Interval: 12 hrs Infusion time (hrs): 2.0 Predicted peak (mcg/mL): 33.9 Predicted trough (mcg/mL): 17.17 Total body weight is being used for vancomycin dosing. Recommendations: Give Vancomycin 1250 mg q 12 hrs with an expected Cpeak of 33.9 mcg/ml and an expected Ctrough of 17.17 mcg/ml ----Vanco only - ignore for aminoglycosides----- CLvanco= 4.20 L/hr AUC 0-24 /RITO Data: RITO 0.5 mcg/mL: AUC/RITO: 1190.5 RITO 1.0 mcg/mL: AUC/RITO: 595.2 --------- RITO 1.5 mcg/mL: AUC/RITO: 396.8 RITO 2.0 mcg/mL: AUC/RITO: 297.6
[2024-10-03 08:00] VITALS: BP 136/75; PULSE 98; RESP 20; TEMP 36.5; O2SAT 95
--- NOTE | 2024-10-03 08:00 | CA_ITS ---
FINAL REPORT TECHNIQUE: Graded compression, spectral analysis and ultrasound images of the venous system of the left upper extremity were obtained. CLINICAL HISTORY: Left arm edema cellulitis swelling x 3 weeks. Smoker, DM, on antibiotics FINDINGS: The left internal jugular and brachial veins are partially thrombosed. The left axillary and visualized left subclavian veins are completely thrombosed. The basilic and cephalic veins are patent. IMPRESSION: Extensive DVT of the left upper extremity extending into the thorax. Reviewed, Interpreted and Dictated by Kami Soto MD Transcribed by Mari Metz Authenticated and . [facility]
[2024-10-03] MEDS: ENOXAPARIN 40MG/0.4ML SYRINGE 40 MG SUBCUT (08:02)
[2024-10-03] MEDS: CEFEPIME HCL 1 GM in 0.9 % SODIUM CHLORIDE 50 ML IV (08:02)
[2024-10-03 08:03] LABS: Iron 133 ug/dL (49-181)
[2024-10-03] MEDS: OLANZapine 5 MG ODT TABLET SL (08:03)
[2024-10-03] MEDS: LISINOPRIL 10MG TABLET 10 MG PO (08:03)
[2024-10-03] MEDS: FOLIC ACID 1MG TABLET 1 MG PO (08:03)
[2024-10-03 08:10] LABS: Procalcitonin 0.097 ng/mL (0.0-2.0)
[2024-10-03 08:12] LABS: Total Iron Binding Capacity 167 ug/dL (261-462)
[2024-10-03] MEDS: ACETAMINOPHEN 325MG TAB 650 MG PO (08:35)
[2024-10-03 08:39] LABS: Ferritin > 1000 ng/ml (17.9-464)
[2024-10-03] MEDS: VANCOMYCIN HCL 1,250 MG in 0.9 % SODIUM CHLORIDE 250 ML 125 MG IV (08:45)
--- NOTE | 2024-10-03 08:51 | SW/DCPLANNER ---
Patient currently resides at [facility]. I will continue to follow up w/ patient's [facility] and [facility] until patient is medically stable for discharge. Discharge date is unknown at this time.
[2024-10-03 09:05] LABS: Folate 6.41 ng/mL
[2024-10-03 10:15] LABS: POC Glucose,Bedside 150 (70-110)
[2024-10-03 10:33] LABS: C-Reactive Protein 15.4 mg/L (0-4)
--- NOTE | 2024-10-03 10:52 | CT_ITS ---
FINAL REPORT TECHNIQUE: IV contrast enhanced exam This study was performed with techniques to keep radiation doses as low as reasonably achievable, (ALARA). Individualized dose reduction techniques using automated exposure control or adjustment of mA and/or kV according to the patient's size were employed. CLINICAL HISTORY: Weight loss, smoker, extensive DVT left arm, anemi COMPARISON: None FINDINGS: CT ABDOMEN AND PELVIS WITH CONTRAST: Abdomen: Moderate splenomegaly is present measuring up to 20 cm in size. Multiple hepatic cysts are noted. There is mild adenopathy in the upper abdomen involving the region surrounding the celiac axis and the jaylan hepatis. There is mild retroperitoneal adenopathy, the largest node measuring 24 x 10 mm in the preaortic region, best seen on image #53. Cholelithiasis is present in a contracted gallbladder. The remaining solid organs appear unremarkable. Pelvis: No iliac chain adenopathy is present. There are a few borderline in size inguinal nodes, which are nonspecific. No free fluid is identified in the pelvis. The appendix is normal in appearance. IMPRESSION: Moderate splenomegaly measuring up to 20 cm in size. Given the large amount of adenopathy in the chest as described on the CTA of the chest from the same date, the splenomegaly may be secondary to a lymphoproliferative disorder. Mild adenopathy involving the celiac axis and jaylan hepatis regions, with mild adenopathy in the preaortic region as well as described. Cholelithiasis with a contracted gallbladder. Reviewed, Interpreted and Dictated by Kami Soto MD Transcribed by Nora Cody Authenticated and [facility]
--- NOTE | 2024-10-03 10:52 | CT_ITS ---
FINAL REPORT TECHNIQUE: Thin section axial CT with contrast with multiplanar reconstruction This study was performed with techniques to keep radiation doses as low as reasonably achievable, (ALARA). Individualized dose reduction techniques using automated exposure control or adjustment of mA and/or kV according to the patient's size were employed. CLINICAL HISTORY: Weight loss, smoker, extensive DVT left arm COMPARISON: None FINDINGS: CTA CHEST: There is abnormal soft tissue within the mediastinum, which encases the left pulmonary artery, the aortic arch, and the great vessel branches, as well as extending into the left neck. The largest kim mass present measures in the axial plane 10.9 x 6.5 cm in size. There is mild excess tension into the left hilum. There is severe compromise of the left innominate vein, with thrombus seen within that vessel. There is no filling of the left axillary or subclavian veins consistent with occlusion. There is a tiny left pleural effusion, and no evidence of a pericardial effusion. No pulmonary emboli are noted. There are micronodular foci throughout much of the left upper lobe. No dominant mass is identified. IMPRESSION: 1. Extensive infiltration in the soft tissues of the mediastinum and left side of the neck, with the differential diagnosis most likely including metastatic small cell carcinoma or lymphoproliferative disorder. 2. No evidence of pulmonary emboli is seen. 3. There is soft tissue compressing the left innominate vein, which contributes to the left upper extremity venous thrombosis present. Reviewed, Interpreted and Dictated by Kami Soto MD Transcribed by Nora Cody Authenticated and [facility]
[2024-10-03] MEDS: 0.9 % SODIUM CHLORIDE 50 ML VIAL 40 ML IV (11:23)
[2024-10-03] MEDS: SODIUM CHLORIDE 0.9% 10ML SYR (RAD ONLY) 10 ML IV (11:24)
[2024-10-03] MEDS: IOPAMIDOL-370 (76%);100ML BOTTLE 85 ML IV (11:24)
[2024-10-03 11:41] LABS: Sodium 128 mmol/L (136-145)
--- NOTE | 2024-10-03 12:46 | CA_ITS ---
FINAL REPORT CLINICAL HISTORY: left upper extremity DVT, cellulitis upper extremities, HTN, DM, smoker FINDINGS: Multiple transverse and longitudinal scans were performed of the femoral popliteal deep venous system, with augmentation and compression maneuvers. Normal phasic flow was noted in the visualized deep venous system. No intraluminal increased echogenicity is noted to suggest thrombus. There is normal compression and augmentation of the venous structures. No abnormal venous collaterals are seen. IMPRESSION: No evidence of deep venous thrombosis of the bilateral lower extremities. Reviewed, Interpreted and Dictated by Kami Soto MD Transcribed by Rita Guzman Authenticated and [facility]
--- NOTE | 2024-10-03 13:29 | P.CONS_ITS ---
History of Present Illness *Admission Date: 10/02/24 *History of present illness: This is a 64-year-old male who has a past medical history significant for anemia, hypertension, schizoaffective disorder, and diabetes who presents from [facility] with a chief complaint of swelling to the left upper extremity. Due to patient's symptoms, he presented to the emergency room for evaluation. While in the emergency room, CT scan of the wrist, shoulder, humerus, hand, and forearm were negative for any acute findings. CT scan did reveal subcutaneous edema/cellulitis from the mid arm to the hand. Patient has been seen in the past for this cellulitis and treated with Dalvance, and while at his nursing facility patient was also given doxycycline. Despite antibiotic therapy, patient continues to have swelling to his left upper extremity. As a result, hospital medicine was contacted for further management. Additional pertinent vitals obtained include a red blood cell count of 3.93, hemoglobin 8.1, hematocrit 24.7, ESR 125, sodium of 126 (was 124), chloride of 92, blood glucose 171, calcium of 10.8, total bilirubin 1.9, AST of 61, and C- reactive protein of 15.1. ---Per admission H&P--- This is a 64-year-old male with what appears to be chronic anemia. He currently has a hemoglobin of 7.5. It is microcytic and hypochromic but the patient's ferritin level is over 1000. He is on Eliquis and has a left upper extremity DVT. The patient denies melena or hematochezia. He denies NSAIDs or alcohol consumption. He denies nausea vomiting epigastric pain. He denies fatigue shortness of breath dizziness or lightheadedness. I cannot elicit if he has ever had an EGD or colonoscopy. Looking at past records he did have a hemoglobin of 9.4 about a year ago. We are awaiting Hemoccult testing [facility] Disclaimer: The information contained in this section may have been updated after the patient was seen, as this information can be updated by other users. Medical History No significant past medical history Social History Smoking Status: Current every day smoker alcohol intake: never current occupational status: unemployed Travel in the last 8 weeks?: None Have you lived/traveled outside US in past 30 days?: No Contact w/someone who lives/traveled outside US past 30 days?: No Exposure to someone with infectious disease in past 14 days?: No Do you have a fever (greater than 100.4 F or 38 C)?: No Have you tested positive for COVID-19?: No Exposed to someone with COVID-19 in past 14 days?: No Do you have a sore throat?: No Do you have a cough?: No Do you have any weakness?: No Do you have any diarrhea?: No Are you experiencing any unusual bleeding?: No Do you have any muscle aches/pain?: No Do you have any abdominal pain?: No Are you experiencing loss of taste or smell?: No Review of Systems Constitutional Constitutional: Reports system reviewed and no additional complaints, except as documented Eyes Eyes: Reports system reviewed and no additional complaints, except as documented ENT Ears, Nose, Mouth, and Throat: Reports system reviewed and no additional complaints, except as documented *Cardiovascular Cardiovascular: Reports system reviewed and no additional complaints, except as documented *Respiratory Respiratory: Reports system reviewed and no additional complaints, except as documented *Gastrointestinal Gastrointestinal: Reports system reviewed and no additional complaints, except as documented, Denies abdominal pain, Denies constipation, Denies diarrhea, Denies dyspepsia, Denies hematochezia, Denies melena and Denies nausea *Musculoskeletal Musculoskeletal: Reports system reviewed and no additional complaints, except as documented Comments: Left upper extremity discomfort *Neurologic Neurologic: Reports system reviewed and no additional complaints, except as documented Meds Home Medications and Allergies Home Medications ?Medication ?Instructions ?Recorded ?Confirmed ?Type folic acid 400 mcg tablet 0.4 mg PO DAILY 10/02/20 10/02/24 History metformin 500 mg tablet 500 mg PO BID 10/02/20 10/02/24 History mirtazapine 15 mg tablet 15 mg PO HS 10/02/20 10/02/24 History hydrochlorothiazide 25 mg tablet 25 mg PO DAILY 11/12/23 10/02/24 History olanzapine 20 mg tablet (Zyprexa) 20 mg PO HS 11/12/23 10/02/24 History temazepam 15 mg capsule 15 mg PO HSP PRN Sleep 11/13/23 10/02/24 History cholecalciferol (vitamin D3) 1,250 1,250 mcg PO WEEKLY 09/12/24 10/02/24 History mcg (50,000 unit) capsule loperamide 2 mg tablet 2 mg PO DIRECTED 09/12/24 10/02/24 History (Anti-Diarrheal (loperamide)) lisinopril 10 mg tablet 10 mg PO DAILY 10/02/24 10/02/24 History olanzapine 5 mg tablet 5 mg PO DAILY 10/02/24 10/02/24 History New Prescriptions to Start Prescriptions: Allergies Allergy/AdvReac Type Severity Reaction Status Date / Time No Known Allergies Allergy Verified 10/02/20 01:18 Exam (Inpt) Vital signs and Labs for Last 24 Hours: Temp Pulse Resp BP Pulse Ox O2 Del Method 97.7 F 98 H 20 136/75 95 Room Air 10/03/24 08:00 10/03/24 08:00 10/03/24 08:00 10/03/24 08:00 10/03/24 08:00 10/03/24 12:13 Laboratory Results - last 24 hr 10/02/24 17:50: WBC 9.2, RBC 3.93 L, Hgb 8.1 L, Hct 24.7 L, MCV 62.8 L, MCH 20.6 L, MCHC 32.8, RDW 16.2, Plt Count 233, MPV 10.5 H, Neut % (Auto) 67.3, Lymph % (Auto) 23.0, [place] % (Auto) 6.8, Eos % (Auto) 2.1, Baso % (Auto) 0.3, Neut # (Auto) 6.2, Lymph # (Auto) 2.1, [place] # (Auto) 0.6, Eos # (Auto) 0.2, Baso # (Auto) 0.0, ESR 125 H, PT 12.0, INR 1.09, APTT 27.1, D-Dimer 1.43 H, Sodium 126 L, Potassium 3.7, Chloride 92 L, Carbon Dioxide 29, Anion Gap 8.7, BUN 11, Creatinine 0.70, Estimated Creat Clear 82, Estimated GFR 113, Est GFR ( Amer) 137, Glucose 171 H, Calcium 10.8 H, Total Bilirubin 1.9 H, AST 61 H, ALT 65, Alkaline Phosphatase 93, C-Reactive Protein 15.1 H 10/02/24 17:50: C-Reactive Protein 15.0 H, Total Protein 7.2, Albumin 3.5, G lobulin 3.7 H, Albumin/Globulin Ratio 0.9 L 10/02/24 20:34: Urine Color Yellow, Urine Appearance Clear, Urine pH 6.5, Ur Specific [place] <= 1.005, Urine Protein Negative, Urine Glucose (UA) Negative, Urine Ketones Negative, Urine Blood Negative, Urine Nitrate Negative, Urine Bilirubin Negative, Urine Urobilinogen 1.0, Ur Leukocyte Esterase Negative, Urine WBC Occasional, Ur Squamous Epith Cells Occasional, Urine Bacteria Trace, Urine Sodium 44.0 10/02/24 20:52: Sodium 128 L 10/02/24 22:06: POC Glucose 149 H 10/03/24 05:38: POC Glucose 140 H 10/03/24 06:01: WBC 8.2, RBC 3.60 L, Hgb 7.5 L, Hct 22.9 L, MCV 63.6 L, MCH 20.8 L, MCHC 32.8, RDW 16.3, Plt Count 227, MPV 10.6 H, Neut % (Auto) 70.6, Lymph % (Auto) 16.6, [place] % (Auto) 9.5 H, Eos % (Auto) 2.2, Baso % (Auto) 0.5, Neut # (Auto) 5.8, Lymph # (Auto) 1.4, [place] # (Auto) 0.8, Eos # (Auto) 0.2, Baso # (Auto) 0.0, Retic Count (auto) 1.8, Sodium 128 L, Potassium 4.4, Chloride 95 L, Carbon Dioxide 29, Anion Gap 8.4, BUN 13, Creatinine 0.90 D, Estimated Creat Clear 79, Estimated GFR 84, Est GFR ( Amer) 102 D, Glucose 108 H D, Calcium 10.2, Iron 133, TIBC 167 L, Iron Saturation 79.97210 H, Ferritin > 1000 H D, C-Reactive Protein 15.4 H, Vitamin B12 775, Folate 6.41, Procalcitonin 0.097 10/03/24 10:08: POC Glucose 150 H 10/03/24 11:28: Sodium 128 L I & O for Labs for Last 24 Hours: Intake & Output 10/01/24 10/02/24 10/03/24 10/04/24 11:59 11:59 11:59 11:59 Intake Total 1469 360 Output Total 0 0 Balance 1469 360 Weight 77.309 kg Constitutional: no acute distress and cooperative Head: Present normocephalic and atraumatic Respiratory: Present CTA bilaterally Cardiac: Present Reg Rate and Rhythm GI: Present soft and normal bowel sounds; Absent tenderness Results Labs 10/03/24 06:01 10/03/24 11:28 Labs: Laboratory Results - last 24 hr 10/02/24 17:50: WBC 9.2, RBC 3.93 L, Hgb 8.1 L, Hct 24.7 L, MCV 62.8 L, MCH 20.6 L, MCHC 32.8, RDW 16.2, Plt Count 233, MPV 10.5 H, Neut % (Auto) 67.3, Lymph % (Auto) 23.0, [place] % (Auto) 6.8, Eos % (Auto) 2.1, Baso % (Auto) 0.3, Neut # (Auto) 6.2, Lymph # (Auto) 2.1, [place] # (Auto) 0.6, Eos # (Auto) 0.2, Baso # (Auto) 0.0, ESR 125 H, PT 12.0, INR 1.09, APTT 27.1, D-Dimer 1.43 H, Sodium 126 L, Potassium 3.7, Chloride 92 L, Carbon Dioxide 29, Anion Gap 8.7, BUN 11, Creatinine 0.70, Estimated Creat Clear 82, Estimated GFR 113, Est GFR ( Amer) 137, Glucose 171 H, Calcium 10.8 H, Total Bilirubin 1.9 H, AST 61 H, ALT 65, Alkaline Phosphatase 93, C-Reactive Protein 15.1 H 10/02/24 17:50: C-Reactive Protein 15.0 H, Total Protein 7.2, Albumin 3.5, G lobulin 3.7 H, Albumin/Globulin Ratio 0.9 L 10/02/24 20:34: Urine Color Yellow, Urine Appearance Clear, Urine pH 6.5, Ur Specific [place] <= 1.005, Urine Protein Negative, Urine Glucose (UA) Negative, Urine Ketones Negative, Urine Blood Negative, Urine Nitrate Negative, Urine Bilirubin Negative, Urine Urobilinogen 1.0, Ur Leukocyte Esterase Negative, Urine WBC Occasional, Ur Squamous Epith Cells Occasional, Urine Bacteria Trace, Urine Sodium 44.0 10/02/24 20:52: Sodium 128 L 10/02/24 22:06: POC Glucose 149 H 10/03/24 05:38: POC Glucose 140 H 10/03/24 06:01: WBC 8.2, RBC 3.60 L, Hgb 7.5 L, Hct 22.9 L, MCV 63.6 L, MCH 20.8 L, MCHC 32.8, RDW 16.3, Plt Count 227, MPV 10.6 H, Neut % (Auto) 70.6, Lymph % (Auto) 16.6, [place] % (Auto) 9.5 H, Eos % (Auto) 2.2, Baso % (Auto) 0.5, Neut # (Auto) 5.8, Lymph # (Auto) 1.4, [place] # (Auto) 0.8, Eos # (Auto) 0.2, Baso # (Auto) 0.0, Retic Count (auto) 1.8, Sodium 128 L, Potassium 4.4, Chloride 95 L, Carbon Dioxide 29, Anion Gap 8.4, BUN 13, Creatinine 0.90 D, Estimated Creat Clear 79, Estimated GFR 84, Est GFR ( Amer) 102 D, Glucose 108 H D, Calcium 10.2, Iron 133, TIBC 167 L, Iron Saturation 79.81513 H, Ferritin > 1000 H D, C-Reactive Protein 15.4 H, Vitamin B12 775, Folate 6.41, Procalcitonin 0.097 10/03/24 10:08: POC Glucose 150 H 10/03/24 11:28: Sodium 128 L Assessment and Plan *Assessment and plan (1) Anemia: Status: Acute Qualifiers: Anemia type: unspecified type Qualified Code(s): D64.9 - Anemia, unspecified Category: Medical Code(s): D64.9 - Anemia, unspecified (2) Elevated ferritin: Status: Acute Category: Medical Code(s): R79.89 - Other specified abnormal findings of blood chemistry Plan 1. Anemia/elevated ferritin Patient has a ferritin level over 1000. He has a hemoglobin of 7.5. He denies any shortness of breath or fatigue. This appears to be chronic. He had a hemoglobin of 9.4 about a year ago. Unable to elicit if he has ever had an EGD or colonoscopy before. No abdominal pain. No NSAID use. Denies alcohol use. Denies melena or hematochezia. He is on Eliquis for blood clots. The patient is eating today and so was unable to undergo EGD this afternoon. Will recommend Hemoccult testing and he can certainly follow-up outpatient for an EGD. The patient denies being on iron supplements. He denies alcohol consumption. With such an elevated ferritin, would check hemochromatosis testing but may be an acute phase reactant.
--- NOTE | 2024-10-03 13:39 | P.CONCA_ITS ---
History of Present Illness History of Present Illness Consult date: 10/03/24 Requesting physician: Jason Jones Chief complaint: Left arm swelling/pain, confusion Additional Medical History:: 1. Bipolar disorder and Schizophrenia 2. LUE DVT, 10/03/2024, with recent 40 lb wt loss A. Chest CT, 10/03/2024, extensive infiltration in the soft tissues of the mediastinum and left side of neck, concerning for metastatic small cell carcinoma or lymphoproliferative disorder. B. Abd CT, 10/03/2024, moderate splenomegaly with mild adenopathy in the celiac axis and jaylan hepatis and preaortic regions. Cholelithiasis with contracted gallbladder. 3. HTN 4. Anemia (Hgb 7-8) with elevated ferritin. GI evaluation in progress, 09/2024 5. DM 6. Hyponatremia 09/2024 History of present illness: This is a 64-year-old male who has a past medical history significant for anemia, hypertension, schizoaffective disorder, and diabetes who presents from [facility] with a chief complaint of swelling to the left upper extremity. Due to patient's symptoms, he presented to the emergency room for evaluation. While in the emergency room, CT scan of the wrist, shoulder, humerus, hand, and forearm were negative for any acute findings. CT scan did reveal subcutaneous edema/cellulitis from the mid arm to the hand. Patient has been seen in the past for this cellulitis and treated with Dalvance, and while at his nursing facility patient was also given doxycycline. Despite antibiotic therapy, patient continues to have swelling to his left upper extremity. As a result, hospital medicine was contacted for further management. During my evaluation of the patient, patient states his symptomology has been going on for more than 3 weeks. He states he has some slight pain to his left upper extremity and it has been without any drainage or trauma. Furthermore, patient is denying any fever, chills, rigors, chest pain, shortness of breath, dyspnea, lightheadedness, dizziness, or diarrhea. Additional pertinent vitals obtained include a red blood cell count of 3.93, hemoglobin 8.1, hematocrit 24.7, ESR 125, sodium of 126 (was 124), chloride of 92, blood glucose 171, calcium of 10.8, total bilirubin 1.9, AST of 61, and C-reactive protein of 15.1. The above per Mal Jimenez APRN for the Hospitalist service. I attempted to interview and examine the patient and explain that we could use a catheter to remove the clot and help his arm get better quicker. He did not want to discuss the procedure and gestured for me to leave the room. [facility] Disclaimer: The information contained in this section may have been updated after the patient was seen, as this information can be updated by other users. Medical History (Updated 10/03/24 @ 13:51 by ANPU Tate) Diabetes mellitus No significant past medical history Social History Smoking Status: Current every day smoker alcohol intake: never current occupational status: unemployed Travel in the last 8 weeks?: None Have you lived/traveled outside US in past 30 days?: No Contact w/someone who lives/traveled outside US past 30 days?: No Exposure to someone with infectious disease in past 14 days?: No Do you have a fever (greater than 100.4 F or 38 C)?: No Have you tested positive for COVID-19?: No Exposed to someone with COVID-19 in past 14 days?: No Do you have a sore throat?: No Do you have a cough?: No Do you have any weakness?: No Do you have any diarrhea?: No Are you experiencing any unusual bleeding?: No Do you have any muscle aches/pain?: No Do you have any abdominal pain?: No Are you experiencing loss of taste or smell?: No Review of Systems Review of Systems Review of systems:: pertinent systems reviewed and negative unless documented below *Neurologic Neurologic: Reports system reviewed and no additional complaints, except as documented Exam Data for Last 24 hours Vital signs and Labs for Last 24 Hours: Temp Pulse Resp BP Pulse Ox O2 Del Method 97.7 F 98 H 20 136/75 95 Room Air 10/03/24 08:00 10/03/24 08:00 10/03/24 08:00 10/03/24 08:00 10/03/24 08:00 10/03/24 12:13 Laboratory Results - last 24 hr 10/02/24 17:50: WBC 9.2, RBC 3.93 L, Hgb 8.1 L, Hct 24.7 L, MCV 62.8 L, MCH 20.6 L, MCHC 32.8, RDW 16.2, Plt Count 233, MPV 10.5 H, Neut % (Auto) 67.3, Lymph % (Auto) 23.0, [place] % (Auto) 6.8, Eos % (Auto) 2.1, Baso % (Auto) 0.3, Neut # (Auto) 6.2, Lymph # (Auto) 2.1, [place] # (Auto) 0.6, Eos # (Auto) 0.2, Baso # (Auto) 0.0, ESR 125 H, PT 12.0, INR 1.09, APTT 27.1, D-Dimer 1.43 H, Sodium 126 L, Potassium 3.7, Chloride 92 L, Carbon Dioxide 29, Anion Gap 8.7, BUN 11, Creatinine 0.70, Estimated Creat Clear 82, Estimated GFR 113, Est GFR ( Amer) 137, Glucose 171 H, Calcium 10.8 H, Total Bilirubin 1.9 H, AST 61 H, ALT 65, Alkaline Phosphatase 93, C-Reactive Protein 15.1 H 10/02/24 17:50: C-Reactive Protein 15.0 H, Total Protein 7.2, Albumin 3.5, Globulin 3.7 H, Albumin/Globulin Ratio 0.9 L 10/02/24 20:34: Urine Color Yellow, Urine Appearance Clear, Urine pH 6.5, Ur Specific [place] <= 1.005, Urine Protein Negative, Urine Glucose (UA) Negative, Urine Ketones Negative, Urine Blood Negative, Urine Nitrate Negative, Urine Bilirubin Negative, Urine Urobilinogen 1.0, Ur Leukocyte Esterase Negative, Urine WBC Occasional, Ur Squamous Epith Cells Occasional, Urine Bacteria Trace, Urine Sodium 44.0 10/02/24 20:52: Sodium 128 L 10/02/24 22:06: POC Glucose 149 H 10/03/24 05:38: POC Glucose 140 H 10/03/24 06:01: WBC 8.2, RBC 3.60 L, Hgb 7.5 L, Hct 22.9 L, MCV 63.6 L, MCH 20.8 L, MCHC 32.8, RDW 16.3, Plt Count 227, MPV 10.6 H, Neut % (Auto) 70.6, Lymph % (Auto) 16.6, [place] % (Auto) 9.5 H, Eos % (Auto) 2.2, Baso % (Auto) 0.5, Neut # (Auto) 5.8, Lymph # (Auto) 1.4, [place] # (Auto) 0.8, Eos # (Auto) 0.2, Baso # (Auto) 0.0, Retic Count (auto) 1.8, Sodium 128 L, Potassium 4.4, Chloride 95 L, Carbon Dioxide 29, Anion Gap 8.4, BUN 13, Creatinine 0.90 D, Estimated Creat Clear 79, Estimated GFR 84, Est GFR ( Amer) 102 D, Glucose 108 H D, Calcium 10.2, Iron 133, TIBC 167 L, Iron Saturation 79.79976 H, Ferritin > 1000 H D, C-Reactive Protein 15.4 H, Vitamin B12 775, Folate 6.41, Procalcitonin 0.097 10/03/24 10:08: POC Glucose 150 H 10/03/24 11:28: Sodium 128 L I & O for Last 24 hours: Intake & Output 10/01/24 10/02/24 10/03/24 10/04/24 11:59 11:59 11:59 11:59 Intake Total 1469 / 1469 360 / 360 Output Total 0 / 0 0 / 0 Balance 1469 / 1469 360 / 360 Weight 170 lb 7 oz Constitutional Constitutional: no acute distress Comments: Pt unwilling to allow me to examine him. Meds Home Medications and Allergies Home Medications ?Medication ?Instructions ?Recorded ?Confirmed ?Type folic acid 400 mcg tablet 0.4 mg PO DAILY 10/02/20 10/02/24 History metformin 500 mg tablet 500 mg PO BID 10/02/20 10/02/24 History mirtazapine 15 mg tablet 15 mg PO HS 10/02/20 10/02/24 History hydrochlorothiazide 25 mg tablet 25 mg PO DAILY 11/12/23 10/02/24 History olanzapine 20 mg tablet (Zyprexa) 20 mg PO HS 11/12/23 10/02/24 History temazepam 15 mg capsule 15 mg PO HSP PRN Sleep 11/13/23 10/02/24 History cholecalciferol (vitamin D3) 1,250 1,250 mcg PO WEEKLY 09/12/24 10/02/24 History mcg (50,000 unit) capsule loperamide 2 mg tablet 2 mg PO DIRECTED 09/12/24 10/02/24 History (Anti-Diarrheal (loperamide)) lisinopril 10 mg tablet 10 mg PO DAILY 10/02/24 10/02/24 History olanzapine 5 mg tablet 5 mg PO DAILY 10/02/24 10/02/24 History New Prescriptions to Start Prescriptions: Allergies Allergy/AdvReac Type Severity Reaction Status Date / Time No Known Allergies Allergy Verified 10/02/20 01:18 Assessment and Plan *Assessment and plan (1) Deep vein thrombosis (DVT) of left upper extremity: Status: Acute Qualifiers: Affected thrombotic vein of extremity: unspecified vein of extremity Chronicity: acute Qualified Code(s): I82.622 - Acute embolism and thrombosis of deep veins of left upper extremity Category: Medical Code(s): I82.622 - Acute embolism and thrombosis of deep veins of left upper extremity (2) Schizoaffective disorder: Status: Acute Qualifiers: Schizoaffective disorder type: unspecified Qualified Code(s): F25.9 - Schizoaffective disorder, unspecified Category: Medical Code(s): F25.9 - Schizoaffective disorder, unspecified (3) Anemia: Status: Acute Qualifiers: Anemia type: unspecified type Qualified Code(s): D64.9 - Anemia, unspecified Category: Medical Code(s): D64.9 - Anemia, unspecified (4) Cellulitis of arm, left: Status: Acute Category: Medical Code(s): L03.114 - Cellulitis of left upper limb (5) Diabetes: Status: Acute Qualifiers: Diabetes mellitus complication detail: with other circulatory complications Diabetes mellitus complication status: with circulatory complication Diabetes mellitus remote computer terminal operator insulin use: unspecified fdc insulin use status Diabetes mellitus type: type 2 Qualified Code(s): E11.59 - Type 2 diabetes mellitus with other circulatory complications Category: Medical Code(s): E11.9 - Type 2 diabetes mellitus without complications Plan 1. LUE DVT and cellulitis -antibiotics started -eliquis started -plan for peripheral angiogram with thrombectomy in AM if patient allows. -workup for etiology in progress per Dr. Jones 2. Anemia -elevated ferritin level -GI has been consulted 3. DM -on metformin 4. Bipolar/Schizophrenia -on Zyprexa 5. Hyponatremia -possibly due to HCTZ. Would stop or use just 2-3 times per week -possible cancer on chest and abd CT would also be concerning etiology 6. Hypertension -on lisinopril LUE peripheral angiogram in AM with thrombectomy. Groin access. If patient allows. Continue eliquis. Please call if patient changes his mind about the procedure. Recommend eliquis 10 mg BID for 7 days then 5 mg BID for 3-6 months.
--- NOTE | 2024-10-03 14:49 | PC.NURSE ---
Aox 3 with occasional memory lapses noted, up with assistance times one, fsbg achs, needs stool, pills whole, npo after midnight, 18g R AC NS @ 100 ML/HR, plus 3 edema in the left arm, planned angiogram with thrombectomy tomorrow.
[2024-10-03 15:32] LABS: Chloride 96 mmol/L (98-107); Potassium 4.5 mmoL/L (3.5-5.1); Sodium 127 mmol/L (136-145)
[2024-10-03 15:35] LABS: Anion Gap 6.5 mEq/L (5-15); Blood Urea Nitrogen 13 mg/dl (9-20); Calcium 10.3 mg/dl (8.4-10.2); Carbon Dioxide 29 mmol/L (22.0-30.0); Creatinine Clearance Estimated 79 mL/min (50-200); Estimated Glomerular Filt Rate 84 ml/min (>60); GFR (African American) 102 ML/MIN (>60); Glucose 154 mg/dl (74-100)
[2024-10-03 16:00] VITALS: BP 132/57; PULSE 90; RESP 18; TEMP 36.7; O2SAT 97
[2024-10-03 16:55] LABS: POC Glucose,Bedside 140 (70-110)
--- NOTE | 2024-10-03 18:30 | EXP.PN ---
Subjective *Date: 10/03/24 *Time: 18:30 Exam Data for Last 24 hours Vital signs and Labs for Last 24 Hours: Temp Pulse Resp BP Pulse Ox O2 Del Method 98.0 F 90 18 132/57 L 97 Room Air 10/03/24 16:00 10/03/24 16:00 10/03/24 16:00 10/03/24 16:00 10/03/24 16:00 10/03/24 17:15 Laboratory Results - last 24 hr 10/02/24 17:50: ESR 125 H, D-Dimer 1.43 H, C-Reactive Protein 15.1 H 10/02/24 17:50: C-Reactive Protein 15.0 H 10/02/24 20:34: Urine Color Yellow, Urine Appearance Clear, Urine pH 6.5, Ur Specific [place] <= 1.005, Urine Protein Negative, Urine Glucose (UA) Negative, Urine Ketones Negative, Urine Blood Negative, Urine Nitrate Negative, Urine Bilirubin Negative, Urine Urobilinogen 1.0, Ur Leukocyte Esterase Negative, Urine WBC Occasional, Ur Squamous Epith Cells Occasional, Urine Bacteria Trace, Urine Sodium 44.0 10/02/24 20:52: Sodium 128 L 10/02/24 22:06: POC Glucose 149 H 10/03/24 05:38: POC Glucose 140 H 10/03/24 06:01: WBC 8.2, RBC 3.60 L, Hgb 7.5 L, Hct 22.9 L, MCV 63.6 L, MCH 20.8 L, MCHC 32.8, RDW 16.3, Plt Count 227, MPV 10.6 H, Neut % (Auto) 70.6, Lymph % (Auto) 16.6, [place] % (Auto) 9.5 H, Eos % (Auto) 2.2, Baso % (Auto) 0.5, Neut # (Auto) 5.8, Lymph # (Auto) 1.4, [place] # (Auto) 0.8, Eos # (Auto) 0.2, Baso # (Auto) 0.0, Retic Count (auto) 1.8, Sodium 128 L, Potassium 4.4, Chloride 95 L, Carbon Dioxide 29, Anion Gap 8.4, BUN 13, Creatinine 0.90 D, Estimated Creat Clear 79, Estimated GFR 84, Est GFR ( Amer) 102 D, Glucose 108 H D, Calcium 10.2, Iron 133, TIBC 167 L, Iron Saturation 79.44681 H, Ferritin > 1000 H D, C-Reactive Protein 15.4 H, Vitamin B12 775, Folate 6.41, Procalcitonin 0.097 10/03/24 10:08: POC Glucose 150 H 10/03/24 11:28: Sodium 128 L 10/03/24 14:10: Sodium 127 L, Potassium 4.5, Chloride 96 L, Carbon Dioxide 29, Anion Gap 6.5, BUN 13, Creatinine 0.90, Estimated Creat Clear 79, Estimated GFR 84, Est GFR ( Amer) 102, Glucose 154 H D, Calcium 10.3 H 10/03/24 16:47: POC Glucose 140 H I & O for Last 24 hours: Intake & Output 09/30/24 10/01/24 10/02/24 10/03/24 23:59 23:59 23:59 23:59 Intake Total 3029 / 3029 Output Total 0 / 0 Balance 3029 / 3029 Weight 75.325 kg 77.309 kg Constitutional Constitutional: no acute distress *Routine HEENT Exam Head: Present normocephalic Eye: Present EOMI and PERRL ENT: Present mucous membranes moist *Routine Neck Exam Neck: Present supple; Absent lymphadenopathy *Routine Respiratory Exam Respiratory: Present CTA bilaterally *Routine Cardiovascular Exam Cardiovascular: Present RRR *Routine Abdominal Exam Abdominal: Present soft and normoactive bowel sounds; Absent tenderness *Routine Extremities Exam Extremities: Present edema; Absent cyanosis or clubbing Comments: Significant left upper extremity swelling without obvious erythema. *Routine Skin Exam Skin: Present warm; Absent rash *Routine Neurological Exam Neurological: Present alert and oriented X3 Assessment and Plan *Assessment and plan (1) Deep vein thrombosis (DVT) of left upper extremity: Status: Acute Qualifiers: Affected thrombotic vein of extremity: unspecified vein of extremity Chronicity: acute Qualified Code(s): I82.622 - Acute embolism and thrombosis of deep veins of left upper extremity Category: Medical Code(s): I82.622 - Acute embolism and thrombosis of deep veins of left upper extremity Plan Bill Sorto is a 64-year-old male who presented from [facility] with worsening left upper extremity swelling which was initially concerning for cellulitis but was found instead to have extensive DVT. #Extensive LUE DVT #Suspected malignancy #Splenomegaly #Acute on chronic microcytic anemia ? Above findings on LUE Doppler, and CAT scans. In addition, patient has had 40 pound unintentional weight loss over the past 2 months. Highly concerning for cancer. ? Chronic current smoker. Also anemic, hemoglobin 7.5 MCV 63. Concern for GI malignancy. ? Discussed with cardiology, who recommended interventional angiogram with thrombectomy. However, patient is refusing as he states he wants a second opinion . He is unclear where he will get the second opinion but he states he will. Patient is alert and oriented x 4. ? Started Eliquis 10 mg twice daily for 7 days, then 5 mg twice daily thereafter. ? Follow-up CEA, CA 19-9. Iron studies, B12, folate normal. ? Follow-up FOBT. ? Consulted GI, recommend outpatient pain diascopy unless hemoglobin continues to downtrend. ? Follow-up CBC, CMP in the morning. #Bipolar disorder #Mood disorder ? Continue home olanzapine, mirtazapine. #Hypertension ? Continue home lisinopril. Full code DVT prophylaxis: Eliquis as above.
[2024-10-03 20:00] VITALS: BP 130/64; PULSE 94; RESP 18; TEMP 36.8; O2SAT 98
[2024-10-03] MEDS: 0.9 % SODIUM CHLORIDE 1000ML 1,000 ML 100 ML IV (20:09)
[2024-10-03] MEDS: MIRTAZAPINE 15 MG TABLET PO (21:36)
[2024-10-03] MEDS: APIXABAN 5MG TABLET 10 MG PO (21:36)
[2024-10-03] MEDS: OLANZapine 5 MG ODT TABLET 20 MG SL (21:36)
[2024-10-03] MEDS: humaLOG 100 UNITS/ML 10ML VIAL (SSI) SUBCUT (21:36)
[2024-10-03 21:37] LABS: POC Glucose,Bedside 175 (70-110)
[2024-10-04] VITALS (16 sets, daily range): BP systolic 119–142; BP diastolic 54–96; PULSE 70–96; RESP 14–22; TEMP 36.4–37.2; O2SAT 94–98; BMI 24.0
[2024-10-04] MEDS: 0.9 % SODIUM CHLORIDE 1000ML 1,000 ML 100 ML IV ×2 (03:22→21:51)
--- NOTE | 2024-10-04 05:49 | PC.NURSE ---
Addendum entered by Wendi Loo RN 10/04/24 05:57: NPO at midnight Original Note: v/s, ox4. Pt denied pain to LUE. LUE was warm to touch, reddened, had +2 pulses radial and brachial, +3 edema, and pt denied any numbness or tingling. Blood glucose monitored. No acute events to report overnight. Plan of care ongoing.
[2024-10-04 06:36] LABS: Basophils % 0.6 % (0.1-2.0); Eosinophils # 0.1 Kmm3 (0.0-0.4); Eosinophils % 1.6 % (0.1-12.0); Hematocrit 22.8 % (42.0-52.0); Hemoglobin 7.5 g/dL (14.1-18.0); Immature Granulocytes # 0.03 10^3uL; Immature Granulocytes % 0.4 %; Lymphocytes # 1.3 K/mm3 (0.7-4.5); Lymphocytes % 19.1 % (10-50); Mean Corpuscular HGB Conc 32.9 g/dL (31.8-35.4); Mean Corpuscular Hemoglobin 20.9 pg (27.0-31.2); Mean Corpuscular Volume 63.7 fl (80-94); Mean Platelet Volume 10.3 fl (7.4-10.4); Monocytes # 0.6 K/mm3 (0.1-1.0); Monocytes % 8.6 % (1.7-9.3); Neutrophils # 4.8 K/mm3 (1.8-7.8); Neutrophils % 69.7 % (37.0-80.0); Nucleated Red Blood Cells # 0.02 10^3/uL; Nucleated Red Blood Cells % 0.3 %; Platelet Count 214 K/mm3 (142-424); Red Blood Count 3.58 M/mm3 (4.60-6.20); Red Cell Distribution Width 16.3 % (11.5-17.5); Red Cell Distribution Width-SD 35.2 fL; White Blood Count 6.9 K/mm3 (4.8-10.8)
[2024-10-04 06:38] LABS: Anion Gap 5.3 mEq/L (5-15); Blood Urea Nitrogen 12 mg/dl (9-20); Carbon Dioxide 30 mmol/L (22.0-30.0); Chloride 97 mmol/L (98-107); Creatinine Clearance Estimated 80 mL/min (50-200); Estimated Glomerular Filt Rate 113 ml/min (>60); GFR (African American) 137 ML/MIN (>60); Glucose 101 mg/dl (74-100); Potassium 4.3 mmoL/L (3.5-5.1); Sodium 128 mmol/L (136-145)
[2024-10-04 06:44] LABS: C-Reactive Protein 16.1 mg/L (0-4)
--- NOTE | 2024-10-04 07:11 | IR_ITS ---
APPROVED REPORT Patient Location: Inpatient PROCEDURES Catheter placement in the left brachial vein Left brachial vein antegrade venogram Right femoral vein access Catheter placement in the left subclavian vein Left subclavian vein retrograde venogram Mechanical thrombectomy to the left subclavian vein INDICATION Left subclavian deep vein thrombosis, Informed consent was obtained prior to the procedure. COMPLICATIONS NONE TECHNIQUE Patient had existing left antecubital venous access. An 014 wire was advanced through the venous access and the venous access was removed. A 5 Spanish sheath was then inserted into the left brachiocephalic vein. Antegrade venography was then performed demonstrating a thrombus. 1% lidocaine used anesthetize the right groin and the right femoral vein was accessed via the Salinger technique. A 7 Spanish sheath was placed in the right femoral vein. This was upsized to an 11 and then 16 Spanish sheath. Therapeutic Was administered giving a therapeutic ACT. An advantage wire was used to track through the left brachial vein into the axillary and subclavian in an antegrade manner. The wire was then placed under fluoroscopic guidance down into the inferior vena cava and into the right common femoral vein. The wire was then used to cannulate the right common femoral vein and then advanced in to the diaphragm. The sheath was slowly removed while the wire was advanced thereby exposing the wire as the sheath exited the skin. The wire originated in the left antecubital area and now exited this body at the right common femoral vein. A trailblazer catheter was then advanced over the wire at the antecubital area and then exited the body at the right common femoral vein. The advantage wire was removed and a 300 cm Watson wire was then advanced into the trailblazer at the common femoral access site and then advanced outside of the body of the 5 Spanish sheath in the left antecubital area. A penumbra mechanical aspiration catheter was then advanced to the left subclavian vein and thrombus was aspirated. The catheter could not be advanced due to external compression of the vein from a large tumor. Venography demonstrated the external compression. A smaller catheter was then advanced over a fresh wire through the 16 Spanish sheath into the left axillary vein where retrograde venography was performed. This demonstrated there was significant compression as well as thrombus in the brachial vein. At this point it was decided to abandon the procedure. It was felt the patient likely had metastatic cancer and stenting the left subclavian vein would likely alleviate the venous congestion in the left arm however it was felt radiation would be more suitable at this point. While the patient was uncomfortable with the left arm swelling he was not in severe pain and there was no evidence of phlegmasia alba Vinicius's therefore it was decided not to stent the subclavian vein. The apparatus was removed and manual pressure was held at the right femoral site in order to achieve hemostasis. Patient was transferred the postop putting in stable condition ANGIOGRAPHIC RESULTS The medial aspect of the left subclavian vein is externally compressed and occluded while the lateral aspect is patent. The left axillary and brachial vein is occluded IMPRESSION Mechanical thrombectomy to the left subclavian vein which did aspirate some thrombus however the occlusion persists given this is secondary to external tumor compression of the left subclavian vein PLAN 1. Continue anticoagulation for DVT 2. After cell tissue is identified from the presumed malignancy patient should be 4xrt to the mediastinum in order to alleviate the left upper extremity edema Electronically signed by : Oni Palacio MD 10/04/2024 13:34:58
--- NOTE | 2024-10-04 08:46 | PC.NURSE ---
Md. Robert brumfield to hold morning meds. Word of state reached to give okay for patient procedure.
[2024-10-04 08:48] LABS: POC Glucose,Bedside 117 (70-110)
[2024-10-04 08:54] LABS: Vancomycin,Trough 8.4 ug/mL (5.0-10.0)
--- NOTE | 2024-10-04 09:22 | P.PN_ITS ---
Subjective Subjective Date: 10/04/24 Time: 09:23 Principal diagnosis: LUE DVT Interval history: 64-year-old white male lying in bed in no acute distress. He does complain of left arm discomfort with left arm visibly more swollen than the right. Patient is agreeable to proceed with procedure this morning. Exam Data for Last 24 hours Vital signs and Labs for Last 24 Hours: Temp Pulse Resp BP Pulse Ox O2 Del Method 97.8 F 96 H 22 125/55 L 95 Room Air 10/04/24 08:00 10/04/24 08:00 10/04/24 08:00 10/04/24 08:00 10/04/24 08:00 10/04/24 08:10 Laboratory Results - last 24 hr 10/03/24 06:01: C-Reactive Protein 15.4 H 10/03/24 10:08: POC Glucose 150 H 10/03/24 11:28: Sodium 128 L 10/03/24 14:10: Sodium 127 L, Potassium 4.5, Chloride 96 L, Carbon Dioxide 29, Anion Gap 6.5, BUN 13, Creatinine 0.90, Estimated Creat Clear 79, Estimated GFR 84, Est GFR ( Amer) 102, Glucose 154 H D, Calcium 10.3 H 10/03/24 16:47: POC Glucose 140 H 10/03/24 21:27: POC Glucose 175 H 10/04/24 05:57: WBC 6.9, RBC 3.58 L, Hgb 7.5 L, Hct 22.8 L, MCV 63.7 L, MCH 20.9 L, MCHC 32.9, RDW 16.3, Plt Count 214, MPV 10.3, Neut % (Auto) 69.7, Lymph % (Auto) 19.1, [place] % (Auto) 8.6, Eos % (Auto) 1.6, Baso % (Auto) 0.6, Neut # (Auto) 4.8, Lymph # (Auto) 1.3, [place] # (Auto) 0.6, Eos # (Auto) 0.1, Baso # (Auto) 0.0, Sodium 128 L, Potassium 4.3, Chloride 97 L, Carbon Dioxide 30, Anion Gap 5.3, BUN 12, Creatinine 0.70 D, Estimated Creat Clear 80, Estimated GFR 113, Est GFR ( Amer) 137 D, Glucose 101 H D, Calcium 10.0, C-Reactive Protein 16.1 H 10/04/24 06:01: POC Glucose 117 H 10/04/24 07:58: Vancomycin Trough 8.4 I & O for Last 24 hours: Intake & Output 10/01/24 10/02/24 10/03/24 10/04/24 11:59 11:59 11:59 11:59 Intake Total 1469 / 1469 1680 / 1680 Output Total 0 / 0 0 / 0 Balance 1469 / 1469 1680 / 1680 Weight 170 lb 7 oz 172 lb Microbiology Reports for the Last 24 Hours: Microbiology 10/02/24 20:40 Blood Blood Culture - Preliminary NO GROWTH AFTER 24 HOURS 10/02/24 20:30 Blood Blood Culture - Preliminary NO GROWTH AFTER 24 HOURS Constitutional Constitutional: no acute distress *Routine Respiratory Exam Respiratory: Present decreased breath sounds; Absent wheezes *Routine Cardiovascular Exam Cardiovascular: Present RRR Progress Note: A&P Assessment and plan (1) Cellulitis of arm, left: Status: Acute (2) Anemia: Status: Acute (3) Hyponatremia: Status: Acute (4) Elevated bilirubin: Status: Acute (5) Elevated erythrocyte sedimentation rate: Status: Acute (6) Elevated C-reactive protein (CRP): Status: Acute (7) Hyperglycemia: Status: Acute Assessment and Plan Assessment and Plan for All Diagnoses:: 1. LUE DVT and cellulitis -antibiotics started -eliquis started -plan for peripheral angiogram with thrombectomy -workup for etiology in progress per Dr. Jones 2. Anemia -elevated ferritin level -GI has been consulted 3. DM -on metformin 4. Bipolar/Schizophrenia -on Zyprexa 5. Hyponatremia -possibly due to HCTZ. Would stop or use just 2-3 times per week -possible cancer on chest and abd CT would also be concerning etiology 6. Hypertension -on lisinopril Subclavian angiogram today for LUE DVT
[2024-10-04] MEDS: HEPARIN 1,000 UNITS/500ML NS (CATH LAB) 3000 UNIT IV (10:29)
[2024-10-04] MEDS: diphenhydrAMINE 50MG/ML VIAL 50 MG IV (10:30)
[2024-10-04] MEDS: LIDOCAINE 1% 10ML MDV 10 ML IJ (10:30)
[2024-10-04] MEDS: 0.9 % SODIUM CHLORIDE 500 ML 25 ML IV (10:30)
[2024-10-04] MEDS: HEPARIN 1,000 UNITS/ML 10ML VIAL (CATH LAB) 5000 UNIT IV (12:24)
[2024-10-04] MEDS: FENTANYL 100MCG/2ML VIAL 50 MCG IV (12:25)
[2024-10-04] MEDS: MIDAZOLAM HCL 1MG/ML 5ML VIAL 1 MG IV (12:25)
[2024-10-04 12:33] LABS: CA 19-9 414 U/mL (0-35); CEA 3.4 ng/mL (0.0-4.7)
[2024-10-04] MEDS: PROPOFOL 10MG/ML 20ML VIAL 540 MG IV (12:59)
[2024-10-04] MEDS: IOPAMIDOL-370 (76%);100ML BOTTLE 150 ML IV (13:36)
[2024-10-04 13:38] LABS: CATHL Activated Clotting Time 215 SEC (74-125)
[2024-10-04 15:29] LABS: POC Glucose,Bedside 146 (70-110)
[2024-10-04 15:40] LABS: Vancomycin,Peak 6.2 ug/ml (11-39)
[2024-10-04] MEDS: OLANZapine 5 MG ODT TABLET 20 MG SL (20:08)
[2024-10-04] MEDS: MIRTAZAPINE 15 MG TABLET PO (20:08)
[2024-10-04] MEDS: APIXABAN 5MG TABLET 10 MG PO (20:08)
--- NOTE | 2024-10-04 20:37 | P.PN_ITS ---
Subjective *Date: 10/04/24 *Time: 20:37 Exam Data for Last 24 hours Vital signs and Labs for Last 24 Hours: Temp Pulse Resp BP Pulse Ox O2 Del Method 98.0 F 94 H 14 140/69 98 Room Air 10/04/24 20:00 10/04/24 20:00 10/04/24 20:00 10/04/24 20:00 10/04/24 20:00 10/04/24 20:00 Laboratory Results - last 24 hr 10/03/24 11:28: Carcinoembryonic Ag 3.4, CA 19-9 Antigen 414 H 10/03/24 21:27: POC Glucose 175 H 10/04/24 05:57: WBC 6.9, RBC 3.58 L, Hgb 7.5 L, Hct 22.8 L, MCV 63.7 L, MCH 20.9 L, MCHC 32.9, RDW 16.3, Plt Count 214, MPV 10.3, Neut % (Auto) 69.7, Lymph % (Auto) 19.1, [place] % (Auto) 8.6, Eos % (Auto) 1.6, Baso % (Auto) 0.6, Neut # (Auto) 4.8, Lymph # (Auto) 1.3, [place] # (Auto) 0.6, Eos # (Auto) 0.1, Baso # (Auto) 0.0, Sodium 128 L, Potassium 4.3, Chloride 97 L, Carbon Dioxide 30, Anion Gap 5.3, BUN 12, Creatinine 0.70 D, Estimated Creat Clear 80, Estimated GFR 113, Est GFR ( Amer) 137 D, Glucose 101 H D, Calcium 10.0, C-Reactive Protein 16.1 H 10/04/24 06:01: POC Glucose 117 H 10/04/24 07:58: Vancomycin Trough 8.4 10/04/24 12:25: Activated Clotting Time 215 H* 10/04/24 14:33: Vancomycin Peak 6.2 L 10/04/24 15:22: POC Glucose 146 H I & O for Last 24 hours: Intake & Output 10/01/24 10/02/24 10/03/24 10/04/24 23:59 23:59 23:59 23:59 Intake Total 3029 / 3149 1020 / 1020 Output Total 0 / 0 600 / 600 Balance 3029 / 3149 420 / 420 Weight 75.325 kg 77.309 kg 78 kg Microbiology Reports for the Last 24 Hours: Microbiology 10/02/24 20:40 Blood Blood Culture - Preliminary NO GROWTH AFTER 24 HOURS 10/02/24 20:30 Blood Blood Culture - Preliminary NO GROWTH AFTER 24 HOURS Constitutional Constitutional: no acute distress *Routine HEENT Exam Head: Present normocephalic Eye: Present EOMI and PERRL ENT: Present mucous membranes moist *Routine Neck Exam Neck: Present supple; Absent lymphadenopathy *Routine Respiratory Exam Respiratory: Present CTA bilaterally *Routine Cardiovascular Exam Cardiovascular: Present RRR *Routine Abdominal Exam Abdominal: Present soft and normoactive bowel sounds; Absent tenderness *Routine Extremities Exam Extremities: Absent cyanosis, clubbing or edema Comments: Left upper extremity swelling. *Routine Skin Exam Skin: Present warm; Absent rash *Routine Neurological Exam Neurological: Present alert and oriented X3 Assessment and Plan *Assessment and plan (1) Deep vein thrombosis (DVT) of left upper extremity: Status: Acute Qualifiers: Affected thrombotic vein of extremity: unspecified vein of extremity Chronicity: acute Qualified Code(s): I82.622 - Acute embolism and thrombosis of deep veins of left upper extremity Category: Medical Code(s): I82.622 - Acute embolism and thrombosis of deep veins of left upper extremity Plan Bill Sorto is a 64-year-old male who presented from [facility] with worsening left upper extremity swelling which was initially concerning for cellulitis but was found instead to have extensive DVT. #Extensive LUE DVT #SVC syndrome #Suspected malignancy #Splenomegaly #Acute on chronic microcytic anemia ? Above findings on LUE Doppler, and CAT scans. In addition, patient has had 40 pound unintentional weight loss over the past 2 months. Highly concerning for cancer. ? Chronic current smoker. Also anemic, hemoglobin 7.5 MCV 63. Concern for malignancy. ? Cardiology consulted, attempted thrombectomy today 10/04/2024. However, mass in left inferior neck was impinging and thrombectomy was unsuccessful. ? Reached out to Dr. Ramesh's office, patient will expeditiously follow-up with Dr. Ramesh on 10/08/2024 at 11 AM. Will need expeditious workup and treatment of suspected malignancy. ? Hold Eliquis for tonight as patient had some bleeding after thrombectomy. ? CEA 3.4, CA 19-9 elevated 414. Iron studies, B12, folate normal. ? Follow-up FOBT. ? Consulted GI, recommend outpatient pandoscopy unless hemoglobin continues to downtrend. Hemoglobin stable at 7.5 today. ? Follow-up CBC, CMP in the morning. ? Anticipate discharge tomorrow if hemoglobin stable tomorrow. With close follow-up with oncology. #Bipolar disorder #Mood disorder ? Continue home olanzapine, mirtazapine. #Hypertension ? Continue home lisinopril. Full code DVT prophylaxis: Eliquis as above.
[2024-10-04 20:47] LABS: POC Glucose,Bedside 148 (70-110)
[2024-10-05] VITALS (18 sets, daily range): BP systolic 130–146; BP diastolic 58–73; PULSE 80–97; RESP 14–16; TEMP 36.6–36.8; O2SAT 94–99; BMI 23.8
--- NOTE | 2024-10-05 05:00 | PC.NURSE ---
v/s, ox4 with forgetfullness to time occasionally. R groin and L arm monitored for drainage due to incisions from procedures. blood glucose monitored. +2 pulses in all extremities. pt denies pain. plan of care ongoing.
[2024-10-05 06:13] LABS: POC Glucose,Bedside 123 (70-110)
[2024-10-05] MEDS: FOLIC ACID 1MG TABLET 1 MG PO (07:41)
[2024-10-05] MEDS: LISINOPRIL 10MG TABLET 10 MG PO (07:41)
[2024-10-05] MEDS: OLANZapine 5 MG ODT TABLET SL (07:41)
[2024-10-05 07:49] LABS: Basophils % 0.4 % (0.1-2.0); Eosinophils # 0.1 Kmm3 (0.0-0.4); Eosinophils % 1.4 % (0.1-12.0); Hematocrit 22.2 % (42.0-52.0); Immature Granulocytes # 0.03 10^3uL; Immature Granulocytes % 0.4 %; Lymphocytes # 1.3 K/mm3 (0.7-4.5); Lymphocytes % 19.1 % (10-50); Mean Corpuscular HGB Conc 31.5 g/dL (31.8-35.4); Mean Corpuscular Hemoglobin 20.3 pg (27.0-31.2); Mean Corpuscular Volume 64.3 fl (80-94); Mean Platelet Volume 10.1 fl (7.4-10.4); Monocytes # 0.6 K/mm3 (0.1-1.0); Monocytes % 8.9 % (1.7-9.3); Neutrophils # 4.9 K/mm3 (1.8-7.8); Neutrophils % 69.8 % (37.0-80.0); Nucleated Red Blood Cells # 0.03 10^3/uL; Nucleated Red Blood Cells % 0.4 %; Platelet Count 197 K/mm3 (142-424); Red Blood Count 3.45 M/mm3 (4.60-6.20); Red Cell Distribution Width 16.6 % (11.5-17.5)
[2024-10-05 08:10] LABS: Anion Gap 8.1 mEq/L (5-15); Blood Urea Nitrogen 13 mg/dl (9-20); Calcium 9.5 mg/dl (8.4-10.2); Carbon Dioxide 26 mmol/L (22.0-30.0); Chloride 101 mmol/L (98-107); Creatinine Clearance Estimated 79 mL/min (50-200); Estimated Glomerular Filt Rate 113 ml/min (>60); GFR (African American) 137 ML/MIN (>60); Glucose 108 mg/dl (74-100); Potassium 4.1 mmoL/L (3.5-5.1); Sodium 131 mmol/L (136-145)
[2024-10-05 08:16] LABS: C-Reactive Protein 28.2 mg/L (0-4)
[2024-10-05 12:15] LABS: POC Glucose,Bedside 114 (70-110)
[2024-10-05 14:17] LABS: Peripheral Smear Review Scanned Result
--- NOTE | 2024-10-05 15:43 | PC.NURSE ---
Aox 4, purewick in place, up with assistance times one, bed alarm active, 20g L AC SL, 20g R FA with NS@ 100 ML/HR, HGB of 7.0 and awaiting blood from lab.
[2024-10-05 16:31] LABS: POC Glucose,Bedside 134 (70-110)
--- NOTE | 2024-10-05 18:16 | EXP.PN ---
Subjective *Date: 10/05/24 *Time: 18:16 Interval history: Patient doing well, hemoglobin dropped to 7.0 today. Likely delusional. However will need transfusion before discharge. Pending transfusion at this time. Exam Data for Last 24 hours Vital signs and Labs for Last 24 Hours: Temp Pulse Resp BP Pulse Ox O2 Del Method 97.9 F 89 16 143/66 H 96 Room Air 10/05/24 16:00 10/05/24 16:00 10/05/24 16:00 10/05/24 16:00 10/05/24 16:00 10/05/24 17:45 Laboratory Results - last 24 hr 10/04/24 20:13: POC Glucose 148 H 10/05/24 06:02: POC Glucose 123 H 10/05/24 07:32: WBC 7.0, RBC 3.45 L, Hgb 7.0 L, Hct 22.2 L, MCV 64.3 L, MCH 20.3 L, MCHC 31.5 L, RDW 16.6, Plt Count 197, MPV 10.1, Neut % (Auto) 69.8, Lymph % (Auto) 19.1, [place] % (Auto) 8.9, Eos % (Auto) 1.4, Baso % (Auto) 0.4, Neut # (Auto) 4.9, Lymph # (Auto) 1.3, [place] # (Auto) 0.6, Eos # (Auto) 0.1, Baso # (Auto) 0.0, Sodium 131 L, Potassium 4.1, Chloride 101, Carbon Dioxide 26, Anion Gap 8.1, BUN 13, Creatinine 0.70, Estimated Creat Clear 79, Estimated GFR 113, Est GFR ( Amer) 137, Glucose 108 H, Calcium 9.5, C-Reactive Protein 28.2 H D, Blood Type Confirm O Positive 10/05/24 09:00: Blood Type O Positive, Crossmatch (AHG) See Detail 10/05/24 12:08: POC Glucose 114 H 10/05/24 16:24: POC Glucose 134 H I & O for Last 24 hours: Intake & Output 10/02/24 10/03/24 10/04/24 10/05/24 23:59 23:59 23:59 23:59 Intake Total 3029 / 3149 1020 / 1260 990 / 990 Output Total 0 / 0 600 / 600 600 / 600 Balance 3029 / 3149 420 / 660 390 / 390 Weight 75.325 kg 77.309 kg 78 kg 77.111 kg Microbiology Reports for the Last 24 Hours: Microbiology 10/02/24 20:40 Blood Blood Culture - Preliminary NO GROWTH AFTER 48 HOURS 10/02/24 20:30 Blood Blood Culture - Preliminary NO GROWTH AFTER 48 HOURS Constitutional Constitutional: no acute distress *Routine HEENT Exam Head: Present normocephalic Eye: Present EOMI and PERRL ENT: Present mucous membranes moist *Routine Neck Exam Neck: Present supple; Absent lymphadenopathy *Routine Respiratory Exam Respiratory: Present CTA bilaterally *Routine Cardiovascular Exam Cardiovascular: Present RRR *Routine Abdominal Exam Abdominal: Present soft and normoactive bowel sounds; Absent tenderness *Routine Extremities Exam Extremities: Absent cyanosis, clubbing or edema Comments: Left upper extremity swelling. *Routine Skin Exam Skin: Present warm; Absent rash *Routine Neurological Exam Neurological: Present alert and oriented X3 Assessment and Plan *Assessment and plan (1) Deep vein thrombosis (DVT) of left upper extremity: Status: Acute Qualifiers: Affected thrombotic vein of extremity: unspecified vein of extremity Chronicity: acute Qualified Code(s): I82.622 - Acute embolism and thrombosis of deep veins of left upper extremity Category: Medical Code(s): I82.622 - Acute embolism and thrombosis of deep veins of left upper extremity Plan Bill Sorto is a 64-year-old male who presented from [facility] with worsening left upper extremity swelling which was initially concerning for cellulitis but was found instead to have extensive DVT. #Extensive LUE DVT #SVC syndrome #Suspected malignancy #Splenomegaly #Acute on chronic microcytic anemia ? Above findings on LUE Doppler, and CAT scans. In addition, patient has had 40 pound unintentional weight loss over the past 2 months. Highly concerning for cancer. ? Chronic current smoker. Also anemic, hemoglobin 7.5 MCV 63. Concern for malignancy. ? Cardiology consulted, attempted thrombectomy today 10/04/2024. However, mass in left inferior neck was impinging and thrombectomy was unsuccessful. ? Reached out to Dr. Ramesh's office, patient will expeditiously follow-up with Dr. Ramesh on 10/08/2024 at 11 AM. Will need expeditious workup and treatment of suspected malignancy. ? Hemoglobin dropped to 7.0 today. Pending 2 unit transfusion. ? Hold Eliquis for tonight as some suspicion for bleeding. ? CEA normal 3.4, CA 19-9 elevated 414. Iron studies, B12, folate normal. ? Follow-up FOBT. ? Consulted GI, recommend outpatient pandoscopy unless hemoglobin continues to downtrend. ? Follow-up CBC, CMP in the morning. ? Anticipate discharge tomorrow if hemoglobin stable tomorrow. With close follow-up with oncology. #COPD ? Started on Anoro Ellipta, DuoNebs. #Bipolar disorder #Mood disorder ? Continue home olanzapine, mirtazapine. #Hypertension ? Continue home lisinopril. Full code DVT prophylaxis: Eliquis as above.
[2024-10-05] MEDS: IPRATROPIUM/ALBUTEROL 3 ML NEB IH ×2 (18:23→23:11)
[2024-10-05] MEDS: OLANZapine 5 MG ODT TABLET 20 MG SL (20:29)
[2024-10-05] MEDS: MIRTAZAPINE 15 MG TABLET PO (20:29)
[2024-10-05] MEDS: 0.9 % SODIUM CHLORIDE 1000ML 1,000 ML 100 ML IV (20:30)
[2024-10-05 20:54] LABS: POC Glucose,Bedside 129 (70-110)
[2024-10-06] VITALS (14 sets, daily range): BP systolic 133–159; BP diastolic 56–82; PULSE 72–100; RESP 16–19; TEMP 36.6–37; O2SAT 94–98; BMI 24.6
[2024-10-06 03:32] LABS: Hematocrit 27.9 % (42.0-52.0)
[2024-10-06] MEDS: 0.9 % SODIUM CHLORIDE 1000ML 1,000 ML 100 ML IV (04:24)
--- NOTE | 2024-10-06 04:54 | PC.NURSE ---
Pt received 2 units of PRBc's, pt tolerated infusion with no s/s of adverse reaction. v/s, ox4. Pt is pleasant and wants to go home . blood glucose monitored. LUE has +3 edema, +2 pulses for brachial and radial, and pt denies pain/tingling/numbess. Plan of care ongoing.
[2024-10-06 06:21] LABS: POC Glucose,Bedside 139 (70-110)
[2024-10-06] MEDS: IPRATROPIUM/ALBUTEROL 3 ML NEB IH (06:29)
[2024-10-06 07:06] LABS: Hemoglobin 9.2 g/dL (14.1-18.0)
[2024-10-06 08:05] LABS: Basophils % 0.4 % (0.1-2.0); Eosinophils # 0.1 Kmm3 (0.0-0.4); Eosinophils % 0.8 % (0.1-12.0); Hemoglobin 9.6 g/dL (14.1-18.0); Immature Granulocytes # 0.07 10^3uL; Immature Granulocytes % 0.8 %; Lymphocytes # 1.2 K/mm3 (0.7-4.5); Lymphocytes % 14.4 % (10-50); Mean Corpuscular HGB Conc 33.1 g/dL (31.8-35.4); Mean Corpuscular Hemoglobin 21.9 pg (27.0-31.2); Mean Corpuscular Volume 66.2 fl (80-94); Monocytes # 0.5 K/mm3 (0.1-1.0); Monocytes % 6.3 % (1.7-9.3); Neutrophils # 6.6 K/mm3 (1.8-7.8); Neutrophils % 77.3 % (37.0-80.0); Nucleated Red Blood Cells # 0.02 10^3/uL; Nucleated Red Blood Cells % 0.2 %; Platelet Count 206 K/mm3 (142-424); Red Blood Count 4.38 M/mm3 (4.60-6.20); Red Cell Distribution Width 19.6 % (11.5-17.5); Red Cell Distribution Width-SD 44.2 fL; White Blood Count 8.6 K/mm3 (4.8-10.8)
[2024-10-06 08:27] LABS: Anion Gap 9.9 mEq/L (5-15); Blood Urea Nitrogen 12 mg/dl (9-20); Calcium 10.1 mg/dl (8.4-10.2); Carbon Dioxide 25 mmol/L (22.0-30.0); Chloride 99 mmol/L (98-107); Creatinine Clearance Estimated 82 mL/min (50-200); Estimated Glomerular Filt Rate 113 ml/min (>60); GFR (African American) 137 ML/MIN (>60); Glucose 127 mg/dl (74-100); Potassium 3.9 mmoL/L (3.5-5.1); Sodium 130 mmol/L (136-145)
[2024-10-06 08:33] LABS: C-Reactive Protein 30.8 mg/L (0-4)
[2024-10-06] MEDS: FOLIC ACID 1MG TABLET 1 MG PO (08:43)
[2024-10-06] MEDS: LISINOPRIL 10MG TABLET 10 MG PO (08:43)
[2024-10-06] MEDS: OLANZapine 5 MG ODT TABLET SL (08:46)
[2024-10-06] MEDS: UMECLIDINIUM/VILANTEROL 62.5/25MCG INHALER 1 PUFF IH (10:14)
--- NOTE | 2024-10-06 10:43 | P.DS_ITS ---
General Admission date:: 10/03/24 HPI HPI HPI: This is a 64-year-old male who has a past medical history significant for anemia, hypertension, schizoaffective disorder, and diabetes who presents from [facility] with a chief complaint of swelling to the left upper extremity. Due to patient's symptoms, he presented to the emergency room for evaluation. While in the emergency room, CT scan of the wrist, shoulder, humerus, hand, and forearm were negative for any acute findings. CT scan did reveal subcutaneous edema/cellulitis from the mid arm to the hand. Patient has been seen in the past for this cellulitis and treated with Dalvance, and while at his nursing facility patient was also given doxycycline. Despite antibiotic therapy, patient continues to have swelling to his left upper extremity. As a result, hospital medicine was contacted for further management. Additional pertinent vitals obtained include a red blood cell count of 3.93, hemoglobin 8.1, hematocrit 24.7, ESR 125, sodium of 126 (was 124), chloride of 92, blood glucose 171, calcium of 10.8, total bilirubin 1.9, AST of 61, and C- reactive protein of 15.1. ---Per admission H&P--- This is a 64-year-old male with what appears to be chronic anemia. He currently has a hemoglobin of 7.5. It is microcytic and hypochromic but the patient's ferritin level is over 1000. He is on Eliquis and has a left upper extremity DVT. The patient denies melena or hematochezia. He denies NSAIDs or alcohol consumption. He denies nausea vomiting epigastric pain. He denies fatigue shortness of breath dizziness or lightheadedness. I cannot elicit if he has ever had an EGD or colonoscopy. Looking at past records he did have a hemoglobin of 9.4 about a year ago. We are awaiting Hemoccult testing Hospital Course Hospital Course Hospital Course: Bill Sorto is a 64-year-old male who presented from [facility] with worsening left upper extremity swelling which was initially concerning for cellulitis but was found instead to have extensive DVT. #Extensive LUE DVT #SVC syndrome #Suspected malignancy #Splenomegaly #Acute on chronic microcytic anemia ? Above findings on LUE Doppler, and CAT scans. In addition, patient has had 40 pound unintentional weight loss over the past 2 months. Highly concerning for cancer. ? Chronic current smoker. Also anemic, hemoglobin 7.5 MCV 63. CA 19-9 elevated 414, CEA normal 3.4. Iron studies, B12, folate normal. ? Cardiology consulted, attempted thrombectomy of DVT 10/04/2024. However, mass in left inferior neck was impinging and thrombectomy was unsuccessful. ? Reached out to Dr. Ramesh's office, patient will expeditiously follow-up with Dr. Ramesh on 10/08/2024 at 11 AM. Will need expeditious workup and treatment of suspected malignancy especially in the setting of SVC syndrome. ? Hemoglobin did drop to 7.0 during admission, in the setting of IV fluids. Received 2 units PRBC transfusion with improvement to hemoglobin 9.6 today. ? Consulted GI, recommend outpatient pandoscopy unless hemoglobin continues to downtrend. ? Discharged with Eliquis 10 mg twice daily for total of 7 days, then 5 mg twice daily. #COPD ? Started on Anoro Ellipta. Smoking cessation advised. #Bipolar disorder #Mood disorder ? Continue home olanzapine, mirtazapine. #Hypertension ? Continue home lisinopril. Total time spent on discharge: 35 minutes on chart review, counseling, documentation, and direct care with patient. Exam Data for Last 24 hours Vital signs and Labs for Last 24 Hours: Temp Pulse Resp BP Pulse Ox O2 Del Method 97.9 F 95 H 18 133/59 L 96 Room Air 10/06/24 08:00 10/06/24 08:00 10/06/24 08:00 10/06/24 08:00 10/06/24 08:00 10/06/24 08:00 Laboratory Results - last 24 hr 10/05/24 07:32: Blood Type Confirm O Positive 10/05/24 09:00: Blood Type O Positive, Antibody Screen Negative, Crossmatch (AHG) See Detail 10/05/24 12:08: POC Glucose 114 H 10/05/24 16:24: POC Glucose 134 H 10/05/24 20:31: POC Glucose 129 H 10/06/24 03:15: Hgb 9.2 L D, Hct 27.9 L 10/06/24 06:09: POC Glucose 139 H 10/06/24 07:25: WBC 8.6, RBC 4.38 L D, Hgb 9.6 L, Hct 29.0 L, MCV 66.2 L, MCH 21.9 L, MCHC 33.1, RDW 19.6 H, Plt Count 206, MPV 10.0, Neut % (Auto) 77.3, Lymph % (Auto) 14.4, [place] % (Auto) 6.3, Eos % (Auto) 0.8, Baso % (Auto) 0.4, Neut # (Auto) 6.6, Lymph # (Auto) 1.2, [place] # (Auto) 0.5, Eos # (Auto) 0.1, Baso # (Auto) 0.0, Sodium 130 L, Potassium 3.9, Chloride 99, Carbon Dioxide 25, Anion Gap 9.9, BUN 12, Creatinine 0.70, Estimated Creat Clear 82, Estimated GFR 113, Est GFR ( Amer) 137, Glucose 127 H, Calcium 10.1, C-Reactive Protein 30.8 H I & O for Last 24 hours: Intake & Output 10/03/24 10/04/24 10/05/24 10/06/24 23:59 23:59 23:59 23:59 Intake Total 3029 / 3149 1020 / 1260 1890 / 1890 610 / 610 Output Total 0 / 0 600 / 600 600 / 600 0 / 0 Balance 3029 / 3149 420 / 660 1290 / 1290 610 / 610 Weight 77.309 kg 78 kg 77.111 kg 79.923 kg Constitutional Constitutional: no acute distress *Routine HEENT Exam Head: Present normocephalic Eye: Present EOMI and PERRL ENT: Present mucous membranes moist *Routine Neck Exam Neck: Present supple; Absent lymphadenopathy *Routine Respiratory Exam Respiratory: Present CTA bilaterally *Routine Cardiovascular Exam Cardiovascular: Present RRR *Routine Abdominal Exam Abdominal: Present soft and normoactive bowel sounds; Absent tenderness *Routine Extremities Exam Extremities: Absent cyanosis, clubbing or edema Comments: Left upper extremity swelling. *Routine Skin Exam Skin: Present warm; Absent rash *Routine Neurological Exam Neurological: Present alert and oriented X3 Results Data Completed and Pending Labs on day of discharge: Labs from last 24 hours 10/06/24 10/06/24 10/06/24 07:25 06:09 03:15 WBC 8.6 RBC 4.38 L D Hgb 9.6 L 9.2 L D Hct 29.0 L 27.9 L MCV 66.2 L MCH 21.9 L MCHC 33.1 RDW 19.6 H Plt Count 206 MPV 10.0 Neut % (Auto) 77.3 Lymph % (Auto) 14.4 [place] % (Auto) 6.3 Eos % (Auto) 0.8 Baso % (Auto) 0.4 Neut # (Auto) 6.6 Lymph # (Auto) 1.2 [place] # (Auto) 0.5 Eos # (Auto) 0.1 Baso # (Auto) 0.0 Sodium 130 L Potassium 3.9 Chloride 99 Carbon Dioxide 25 Anion Gap 9.9 BUN 12 Creatinine 0.70 Estimated Creat Clear 82 Estimated GFR 113 Est GFR ( Amer) 137 Glucose 127 H POC Glucose 139 H Calcium 10.1 C-Reactive Protein 30.8 H Blood Type Blood Type Confirm Antibody Screen Crossmatch ([facility]) 10/05/24 10/05/24 10/05/24 20:31 16:24 12:08 WBC RBC Hgb Hct MCV MCH MCHC RDW Plt Count MPV Neut % (Auto) Lymph % (Auto) [place] % (Auto) Eos % (Auto) Baso % (Auto) Neut # (Auto) Lymph # (Auto) [place] # (Auto) Eos # (Auto) Baso # (Auto) Sodium Potassium Chloride Carbon Dioxide Anion Gap BUN Creatinine Estimated Creat Clear Estimated GFR Est GFR ( Amer) Glucose POC Glucose 129 H 134 H 114 H Calcium C-Reactive Protein Blood Type Blood Type Confirm Antibody Screen Crossmatch ([facility]) 10/05/24 10/05/24 09:00 07:32 WBC RBC Hgb Hct MCV MCH MCHC RDW Plt Count MPV Neut % (Auto) Lymph % (Auto) [place] % (Auto) Eos % (Auto) Baso % (Auto) Neut # (Auto) Lymph # (Auto) [place] # (Auto) Eos # (Auto) Baso # (Auto) Sodium Potassium Chloride Carbon Dioxide Anion Gap BUN Creatinine Estimated Creat Clear Estimated GFR Est GFR ( Amer) Glucose POC Glucose Calcium C-Reactive Protein Blood Type O Positive Blood Type Confirm O Positive Antibody Screen Negative Crossmatch ([facility]) See Detail Preliminary micro results at discharge 10/02/24 20:40 Blood Culture - Preliminary Blood NO GROWTH AFTER 48 HOURS 10/02/24 20:30 Blood Culture - Preliminary Blood NO GROWTH AFTER 48 HOURS DS: Diagnosis Discharge Diagnosis (1) Deep vein thrombosis (DVT) of left upper extremity: Status: Acute Code(s): I82.622 - Acute embolism and thrombosis of deep veins of left upper extremity Qualifiers: Affected thrombotic vein of extremity: unspecified vein of extremity Chronicity: acute Qualified Code(s): I82.622 - Acute embolism and thrombosis of deep veins of left upper extremity Meds Home Medications and Allergies Home Medications ?Medication ?Instructions ?Recorded ?Confirmed ?Type folic acid 400 mcg tablet 0.4 mg PO DAILY 10/02/20 10/02/24 History metformin 500 mg tablet 500 mg PO BID 10/02/20 10/02/24 History mirtazapine 15 mg tablet 15 mg PO HS 10/02/20 10/02/24 History hydrochlorothiazide 25 mg tablet 25 mg PO DAILY 11/12/23 10/02/24 History olanzapine 20 mg tablet (Zyprexa) 20 mg PO HS 11/12/23 10/02/24 History temazepam 15 mg capsule 15 mg PO HSP PRN Sleep 11/13/23 10/02/24 History cholecalciferol (vitamin D3) 1,250 1,250 mcg PO WEEKLY 09/12/24 10/02/24 History mcg (50,000 unit) capsule loperamide 2 mg tablet 2 mg PO DIRECTED 09/12/24 10/02/24 History (Anti-Diarrheal (loperamide)) lisinopril 10 mg tablet 10 mg PO DAILY 10/02/24 10/02/24 History olanzapine 5 mg tablet 5 mg PO DAILY 10/02/24 10/02/24 History apixaban 5 mg (74 tabs) tablets in 5 mg PO BID #74 tabs 10/06/24 Rx a dose pack (Eliquis DVT-PE Treat 30D Start) aspirin 81 mg tablet,delayed 81 mg PO DAILY #30 tabs 10/06/24 Rx release umeclidinium 62.5 mcg-vilanterol 1 inh inhalation DAILY 30 days #60 10/06/24 Rx 25 mcg/actuation powdr for ea inhalation (Anoro Ellipta) New Prescriptions to Start Prescriptions: apixaban [Eliquis DVT-PE Treat 30D Start] Jason Jones aspirin Jason Jones umeclidinium-vilanterol [Anoro Ellipta] Jason Jones Allergies Allergy/AdvReac Type Severity Reaction Status Date / Time No Known Allergies Allergy Verified 10/02/20 01:18 Discharge Plan Disposition Patient Disposition: Home, Self-Care Condition: Fair Discharge Order Discharge Orders: Discharge Order (Routine); Ordered 10/06/24 Ordered By: Jason Jones Follow up Plan Follow up with: Abel Valencia PA [Physician [employer] Officer] - 10/10/24 10:45 am Pita Gutiérrez APRN [Nurse Practitioner] - Enter time for follow up (Please call Monday10/08/24 due to Monday being to schedule your Hemoccult testing and follow-up outpatient for an EGD. the office is aware of your needs of labs and an appointment at this time. Thank you! ) Placido Ramesh MD [Staff Physician] - 10/08/24 11:15 am Prescriptions/Medication Reconciliation: New umeclidinium-vilanterol [Anoro Ellipta] 62.5-25 mcg/actuation Blister With Device 1 inh inhalation DAILY 30 Days Qty: 60 0RF Eliquis DVT-PE Treat 30D Start 5 mg (74 tabs) tablets,dose pack 5 mg PO BID Qty: 74 0RF aspirin 81 mg tablet,delayed release (DR/EC) 81 mg PO DAILY Qty: 30 0RF Continued hydrochlorothiazide 25 mg Tablet 25 mg PO DAILY olanzapine [Zyprexa] 20 mg Tablet 20 mg PO HS temazepam 15 mg capsule 15 mg PO HSP PRN (Reason: Sleep) olanzapine 5 mg tablet 5 mg PO DAILY lisinopril 10 mg tablet 10 mg PO DAILY metformin 500 MG tablet 500 mg PO BID folic acid 0.4 MG tablet 0.4 mg PO DAILY mirtazapine 15 MG tablet 15 mg PO HS loperamide [Anti-Diarrheal (loperamide)] 2 mg tablet 2 mg PO DIRECTED Rx Instructions: 1 tablet by mouth for loose stool not to exceed 8mg/day cholecalciferol (vitamin D3) 1,250 mcg (50,000 unit) capsule 1,250 mcg PO WEEKLY Rx Instructions: once weekly on MONDAY Problem Reconciliation Problems Reviewed?: Yes Patient Discharge Instructions Patient Instructions: DI for Cellulitis -- Adult, DI for Deep Vein Thrombosis, Stop Light Infection Print Language: Iranian Providers Primary Care Provider: Provider,Referral Admit Provider: Jason Jones Attending Provider: Jason Jones
[2024-10-06] MEDS: APIXABAN 5MG TABLET 10 MG PO (12:23)
--- NOTE | 2024-10-06 17:53 | PC.NURSE ---
Late entry: This nurse contacted [facility] about patient discharging today. Dimple at [facility] stated that their pharmacy- [facility] in [place]- was closed today and tomorrow for the holiday. Patient being sent home on three prescriptions. Offered to send to [facility] pharmacy, but staff indicated they couldn't guarantee that the medications would be picked up. Notified Dr. Jones about situation. Stated that he was okay with patient waiting on the aspirin and inhaler, but wanted to make sure patient got his doses of eliquis. This nurse asked [place] in pharmacy about sending patient with the medication he needed, but we are unable to do that. This nurse contacted [facility] and explained situation. [facility] staff stated We do not close, we are a 24 hour pharmacy. [facility] just needs to contact us when the patient arrives to facility and we will make sure he gets his medication needed. Situation explained to [facility] staff upon patient discharge and updated houseman DIA.
== END 2024-10-06 14:46 | DRG 253 ==
LOC: ER 20:30 → 2ND 21:03
PROVIDERS: Family Medicine; Internal Medicine; Nurse Practitioner Family; Admitting Provider Student in an Organized Health Care Education/Training Program; Emergency Provider Emergency Medicine; Visit Provider Student in an Organized Health Care Education/Training Program
PROC: B51NZZA Fluoroscopy of Left Upper Extremity Veins, Guidance (ICD-10-PCS; CPT 75820; principal; 2024-10-04 12:00)
DX: I82.622 Acute embolism and thrombosis of deep veins of left upper extremity (principal); E87.1 Hypo-osmolality and hyponatremia; R17 Unspecified jaundice; L03.114 Cellulitis of left upper limb; I87.1 Compression of vein; D64.9 Anemia, unspecified; R79.89 Other specified abnormal findings of blood chemistry; Z79.84 Long term (current) use of oral hypoglycemic drugs; Z79.899 Other long term (current) drug therapy; F17.210 Nicotine dependence, cigarettes, uncomplicated; E11.65 Type 2 diabetes mellitus with hyperglycemia; D50.9 Iron deficiency anemia, unspecified; I10 Essential (primary) hypertension; Z79.01 Long term (current) use of anticoagulants; F25.9 Schizoaffective disorder, unspecified; F31.9 Bipolar disorder, unspecified; J44.9 Chronic obstructive pulmonary disease, unspecified; R41.82 Altered mental status, unspecified; E83.52 Hypercalcemia; R63.4 Abnormal weight loss; Z68.24 Body mass index [BMI] 24.0-24.9, adult; K80.20 Calculus of gallbladder without cholecystitis without obstruction; R16.1 Splenomegaly, not elsewhere classified; R22.1 Localized swelling, mass and lump, neck; L03.012 Cellulitis of left finger; Z53.09 Procedure and treatment not carried out because of other contraindication; Z71.6 Tobacco abuse counseling
CPT/HCPCS: 36012; 36415; 36430; 37187; 71275; 73201; 74177; 75820; 80048; 80053; 80202; 81001; 81256; 82378; 82607; 82728; 82746; 82962; 83540; 83550; 84145; 84295; 84540; 85014; 85018; 85025; 85044; 85347; 85378; 85610; 85651; 85730; 86140; 86301; 86850; 87040; 93970; 93971; 94640; 99152; 99153; 99285; C1725; C1757; C1769; C1894; G0378; J0692; J0696; J1200; J1644; J1650; J2250; J3010; J3370; J7030; J7620; P9016; Q9967

== ENCOUNTER 2024-10-08 12:16 | Outpatient (CLI) | payer MEDICARE, OTHER, SELFPAY ==
[2024-10-08 13:19] LABS: Basophils # 0.1 K/mm3 (0-0.2); Basophils % 0.4 % (0.1-2.0); Eosinophils # 0.2 Kmm3 (0.0-0.4); Eosinophils % 1.8 % (0.1-12.0); Hematocrit 32.2 % (42.0-52.0); Hemoglobin 10.5 g/dL (14.1-18.0); Immature Granulocytes # 0.06 10^3uL; Immature Granulocytes % 0.5 %; Lymphocytes # 1.6 K/mm3 (0.7-4.5); Lymphocytes % 14.1 % (10-50); Mean Corpuscular HGB Conc 32.6 g/dL (31.8-35.4); Mean Corpuscular Hemoglobin 22.2 pg (27.0-31.2); Mean Corpuscular Volume 68.2 fl (80-94); Mean Platelet Volume 10.6 fl (7.4-10.4); Monocytes # 0.8 K/mm3 (0.1-1.0); Monocytes % 6.9 % (1.7-9.3); Neutrophils # 8.7 K/mm3 (1.8-7.8); Neutrophils % 76.3 % (37.0-80.0); Nucleated Red Blood Cells # 0.05 10^3/uL; Nucleated Red Blood Cells % 0.4 %; Platelet Count 253 K/mm3 (142-424); Red Blood Count 4.72 M/mm3 (4.60-6.20); Red Cell Distribution Width 21.2 % (11.5-17.5); Red Cell Distribution Width-SD 46.9 fL; White Blood Count 11.4 K/mm3 (4.8-10.8)
[2024-10-08 13:29] LABS: Albumin Level 3.8 g/dl (3.5-5.0); Chloride 96 mmol/L (98-107); Potassium 3.9 mmoL/L (3.5-5.1); Sodium 130 mmol/L (136-145)
[2024-10-08 13:31] LABS: Alanine Aminotransferase 61 U/L (12-78); Alkaline Phosphatase 104 U/L (38-126); Anion Gap 9.9 mEq/L (5-15); Aspartate Amino Transferase 65 U/L (17-59); Bilirubin,Total 2.3 mg/dl (0.2-1.3); Blood Urea Nitrogen 12 mg/dl (9-20); Carbon Dioxide 28 mmol/L (22.0-30.0); Estimated Glomerular Filt Rate 113 ml/min (>60); GFR (African American) 137 ML/MIN (>60)
[2024-10-08 13:32] LABS: Calcium 11.5 mg/dl (8.4-10.2); Globulin 3.9 g/dL (1.3-3.2); Glucose 118 mg/dl (74-100); Iron 151 ug/dL (49-181); Total Protein,Serum 7.7 g/dl (6.3-8.2)
[2024-10-08 13:42] LABS: Total Iron Binding Capacity 157 ug/dL (261-462)
[2024-10-08 14:37] LABS: Lactate Dehydrogenase 144 U/L (313-618)
[2024-10-08 15:00] LABS: Ferritin 2480 ng/ml (17.9-464)
[2024-10-09 08:35] LABS: Haptoglobin 47 mg/dL (32-363)
[2024-10-10 14:24] LABS: Peripheral Smear Review Scanned Result
[2024-10-10 20:32] LABS: QuantiFERON-TB Gold Plus Negative (Negative)
== END 2024-10-08 23:59 | disposition home or self-care (01) ==
PROVIDERS: Internal Medicine Pulmonary Disease; Visit Provider Internal Medicine Medical Oncology
DX: I82.622 Acute embolism and thrombosis of deep veins of left upper extremity (principal); C34.90 Malignant neoplasm of unspecified part of unspecified bronchus or lung; D64.9 Anemia, unspecified; R91.8 Other nonspecific abnormal finding of lung field; J18.9 Pneumonia, unspecified organism
CPT/HCPCS: 36415; 80053; 82728; 83010; 83540; 83550; 83615; 85025; 86480; 86880

== ENCOUNTER 2024-10-19 15:45 | Emergency (ER) | payer MEDICARE, OTHER, SELFPAY ==
[2024-10-19] VITALS (13 sets, daily range): BP systolic 111–153; BP diastolic 48–78; PULSE 83–98; RESP 17–23; TEMP 36.3–36.8; O2SAT 85–100; BMI 24.4; BMI 25.6
--- NOTE | 2024-10-19 15:48 | PC.NURSE ---
calcium critical given to md aguirre
--- NOTE | 2024-10-19 15:48 | ECG_ITS ---
APPROVED REPORT Exam: Resting ECG HR:100 bpm ECG Measurements Heart Rate 100 AXES UT 124 P 67 QRSd 140 QRS 72 QT 361 T 42 QTc 418 Conclusion SINUS TACHYCARDIA WITH FREQUENT SUPRAVENTRICULAR PREMATURE COMPLEXES RIGHT BUNDLE BRANCH BLOCK [120+ ms QRS DURATION, UPRIGHT V1, 40+ ms S IN I/aVL/V4/V5/V6] ST DEVIATION AND MODERATE T-WAVE ABNORMALITY, CONSIDER ANTERIOR ISCHEMIA [-0.1+ mV T-WAVE IN V3/V4] ABNORMAL ECG UNCONFIRMED REPORT Electronically signed by : LULÚ MARTINEZ, 10/24/2024 01:20:47
--- NOTE | 2024-10-19 16:19 | CT_ITS ---
PROCEDURE INFORMATION: Exam: CT Head Without Contrast Exam date and time: 10/19/2024 5:02 PM Age: 64 years old Clinical indication: Other: AMS, malignancy TECHNIQUE: Imaging protocol: Computed tomography of the head without contrast. Radiation optimization: All CT scans at this facility use at least one of these dose optimization techniques: automated exposure control; mA and/or kV adjustment per patient size (includes targeted exams where dose is matched to clinical indication); or iterative reconstruction. COMPARISON: No relevant prior studies available. FINDINGS: Limitations: Motion artifact does moderately limit the sensitivity of this examination. Brain: No midline shift. There is no evidence of uncal or subfalcine herniation. Age related brain involution is present. Diffuse subcortical and periventricular white matter hypodensities are most in favor with chronic small vessel disease. There is no evidence of intracranial hemorrhage. Thibodeaux-white matter differentiation is preserved. Cerebral ventricles: Compensatory exvacuo ventriculomegaly. Paranasal sinuses: Paranasal sinuses are clear. Mastoid air cells: The mastoid sinuses are clear. Orbital cavities: The orbits are normal. Bones: No acute skeletal abnormality or aggressive osseous lesion. Soft tissues: No acute soft tissue findings. IMPRESSION: No acute intracranial pathology. COMMENTS: Consider correlation with MRI of the brain without and with contrast for a more complete assessment of intracranial metastasis if warranted.
--- NOTE | 2024-10-19 16:21 | CT_ITS ---
PROCEDURE INFORMATION: Exam: CT Neck With Contrast Exam date and time: 10/19/2024 5:04 PM Age: 64 years old Clinical indication: Other: Malignancy/lue swelling TECHNIQUE: Imaging protocol: Computed tomography of the neck with contrast. Radiation optimization: All CT scans at this facility use at least one of these dose optimization techniques: automated exposure control; mA and/or kV adjustment per patient size (includes targeted exams where dose is matched to clinical indication); or iterative reconstruction. Contrast material: ISOVUE; Contrast volume: 75 ml; Contrast route: IV; COMPARISON: 1. CT HEAD/BRAIN WO CON 10/19/2024 5:[address] ANGIO CHEST PE PROTOCOL 10/03/2024 11:08 AM FINDINGS: Brain: No acute findings or significant mass effect in the included segments of the intracranial compartment. Orbital cavities: The orbits are normal. Paranasal sinuses: Paranasal sinuses are clear. Mastoid air cells: The mastoid sinuses are clear. Salivary glands: Normal. Glands are normal in size. Pharynx: See Mediastinal space finding. Larynx: See Mediastinal space finding. Thyroid: See Mediastinal space finding. Trachea: Patent. Lungs: Right lung apex is clear. Mediastinal space: Partially seen large left neck mass which extends caudally into the upper thorax/mediastinum and cranially up to the level of the left carotid bifurcation. It is difficult to measure but approximately 10.5 x 5.5 x 9.2 cm. It has extensive areas of central necrosis with peripheral large enhancing soft tissue components. It completely obliterates the left external and internal jugular veins (with multiple filling defects within the left internal jugular vein, possibly tumor thrombus). It completely obliterates the proximal left subclavian vein, as well as the innominate vein. It is in direct apposition with the left thyroid lobe, which itself has a large 2.2 cm nodule (could be metastatic or primary). The mass also completely encases (360 degrees) the proximal and mid segments of the left common carotid artery and left subclavian artery, without significant stenosis or occlusion. It also anteriorly displaces and possibly invades the left sternocleidomastoid muscle. Additionally, it calcis mild rightward mass effect upon the trachea without invasion. It does not appear to invade into the oropharynx, or larynx. It however does partially extend into the prevertebral space. At the level of the superior mediastinum, the mass essentially extends throughout the retrosternal and prevertebral spaces, mid mediastinum, and likely into the AP window. It also invades into the parenchyma of the left upper lobe, where there is mild interlobular septal thickening and nodular interstitial thickening, which is concerning for interstitial spread of disease. Additionally, the mass is inseparable from the left esophageal wall at the level of the superior mediastinum. Lymph nodes: Several necrotic lymph nodes are present in the left neck, measuring up to 1.5 cm. Consistent with metastatic lymph nodes. Similarly, enlarged mediastinal and necrotic lymph nodes are present measuring up to 1 cm in the anterior mediastinum. No significantly enlarged lymph nodes in the right neck (contralateral side). Vasculature: There is moderate atherosclerotic calcification of the carotid arteries. Bones/joints: Mild disc space narrowing at C2-C3. Mild disc space narrowing at C3-C4. Mild disc space narrowing at C4-C5. Moderate disc space narrowing at C5-C6. Severe disc space narrowing at C6-C7. Small multilevel anterior osteophytes. The spinal canal is patent. Moderate degenerative changes of the atlantoaxial joint. No acutely displaced fractures. No joint dislocation. No aggressive osseous lesions. Soft tissues: See Mediastinal space finding. IMPRESSION: 1. Large and invasive mass throughout the left neck soft tissues, extending beyond the [id number] into the superior mediastinum. Please review CT chest from 10/03/2024 for description on thoracic extension of disease. Of important note is that the mass causes complete obliteration of the left internal jugular vein, innominate vein, and left subclavian vein. This explains the patient's left upper extremity swelling. Please review above for complete details on the extension and morphology of the mass. 2. Necrotic left cervical chain metastatic adenopathy, as well as mediastinal adenopathy. COMMENTS: Consistent with the [employer]'s Incidental Findings Committee white paper (J Am Clarke Radiol 2015): In patients aged 35 years and older with an incidental thyroid nodule equal to or greater than 1.[address], MRI or extrathyroidal US, further evaluation with dedicated thyroid US is recommended for patients with normal life expectancy and without comorbidities. For smaller nodules without suspicious features, no further evaluation or follow up is recommended.
--- NOTE | 2024-10-19 16:24 | CT_ITS ---
PROCEDURE INFORMATION: Exam: CTA Chest With Contrast Exam date and time: 10/19/2024 5:07 PM Age: 64 years old Clinical indication: Other: Left upper lobe mass, lue swelling TECHNIQUE: Imaging protocol: Computed tomographic angiography of the chest with contrast. Exam focused on the arteries. 3D rendering (Not supervised by radiologist): MIP and/or 3D reconstructed images were created by the technologist. Radiation optimization: All CT scans at this facility use at least one of these dose optimization techniques: automated exposure control; mA and/or kV adjustment per patient size (includes targeted exams where dose is matched to clinical indication); or iterative reconstruction. Contrast material: ISO 370; Contrast volume: 70 ml; Contrast route: INTRAVENOUS (IV); COMPARISON: CT ANGIO CHEST PE PROTOCOL 10/03/2024 11:08 AM FINDINGS: Pulmonary arteries: Encasement of the left main pulmonary artery, left upper lobe pulmonary artery, and left lower lobe pulmonary artery. Aorta: Unremarkable. No aortic aneurysm. No aortic dissection. Thyroid: Left lobe thyroid dominant nodule 2.5 cm. Consider thyroid sonogram with possible biopsy. Lungs: Unremarkable. No consolidation. No masses. Pleural spaces: Unremarkable. No pneumothorax. No pleural effusion. Heart: Unremarkable. No cardiomegaly. No pericardial effusion. Lymph nodes: Bulky adenopathy in the superior mediastinum. Approximately 8 cm. Bulky adenopathy in the AP window, at least 11 cm. Spleen: Splenomegaly. Bones/joints: Unremarkable. No acute fracture. Soft tissues: 8 cm left supraclavicular mass. IMPRESSION: 1. 8 cm left supraclavicular mass. 2. Bulky adenopathy in the superior mediastinum. Approximately 8 cm. 3. Bulky adenopathy in the AP window, at least 11 cm. 4. Encasement of the left main pulmonary artery, left upper lobe pulmonary artery, and left lower lobe pulmonary artery. 5. Left lobe thyroid dominant nodule 2.5 cm. Consider thyroid sonogram with possible biopsy. COMMENTS: Consistent with the [employer]'s Incidental Findings Committee white paper (J Am Clarke Radiol 2015): In patients aged 35 years and older with an incidental thyroid nodule equal to or greater than 1.[address], MRI or extrathyroidal US, further evaluation with dedicated thyroid US is recommended for patients with normal life expectancy and without comorbidities. For smaller nodules without suspicious features, no further evaluation or follow up is recommended.
--- NOTE | 2024-10-19 16:25 | ED_ITS ---
Discharge Plan Disposition Chief Complaint: Recheck/Abnormal Lab/Rx Prescriptions Prescriptions: No Action enoxaparin [Lovenox] 80 mg/0.8 mL syringe 80 mg SQ Q12H 5 Days Qty: 8 0RF Rx Instructions: Do not take this while using other anticoagulants (Stop Apixaban while using this medication) Instructions given to patient to use this to facilitate bronchoscopy procedure. Call [facility] at [phone] with any further questions or concerns hydrochlorothiazide 25 mg Tablet 25 mg PO DAILY olanzapine [Zyprexa] 20 mg Tablet 20 mg PO HS temazepam 15 mg capsule 15 mg PO HSP PRN (Reason: Sleep) olanzapine 5 mg tablet 5 mg PO DAILY lisinopril 10 mg tablet 10 mg PO DAILY umeclidinium-vilanterol [Anoro Ellipta] 62.5-25 mcg/actuation Blister With Device 1 inh inhalation DAILY 30 Days Qty: 60 0RF Eliquis DVT-PE Treat 30D Start 5 mg (74 tabs) tablets,dose pack 5 mg PO BID Qty: 74 0RF aspirin 81 mg tablet,delayed release (DR/EC) 81 mg PO DAILY Qty: 30 0RF metformin 500 MG tablet 500 mg PO BID folic acid 0.4 MG tablet 0.4 mg PO DAILY mirtazapine 15 MG tablet 15 mg PO HS loperamide [Anti-Diarrheal (loperamide)] 2 mg tablet 2 mg PO DIRECTED Rx Instructions: 1 tablet by mouth for loose stool not to exceed 8mg/day cholecalciferol (vitamin D3) 1,250 mcg (50,000 unit) capsule 1,250 mcg PO WEEKLY Rx Instructions: once weekly on MONDAY Referrals Follow up/Referrals: Provider,Referral, MD [Primary Care Provider, Medical] - See instructions Clinical Impressions Clinical Impression: Mediastinal mass, Left arm swelling, Encephalopathy acute Print Language Print Language: Macedonian Discharge ED Provider: Jeni Villasenor General Adult HPI General Chief complaint: Recheck/Abnormal Lab/Rx Stated complaint: AMS Time Seen by Provider: 10/19/24 16:01 Mode of Arrival: EMS Source of Information: Patient and EMS Description of Symptoms (Recalled from ER Triage Doc. by RN): EMS reports they were called by Antonio because the pt has had AMS, for a long time. They were unable to clarify. The pt has been seen here recently for the same complaint. pt A&OX3 and disoriented to time. pt c/o L shoulder pain that radiates distal to his hand. pt has 2+ edema in his L arm and it is weeping near his wrist/hand. pt states his pain is 20/10. pt and Anoopindu are poor historians. pt is somewhat ornery and voices distaste for this hospital. pt is soiled and disheveled. History of Present Illness HPI narrative: Patient is a 64-year-old male who recently was diagnosed with a 10 cm mediastinal infiltrative mass that is extending into his shoulder region with associated significant left upper extremity swelling diagnosed as cellulitis. Has been followed by her mixer lever operator had a bronchoscopy scheduled at the end of this month no tissue diagnosis has been made however this is highly concerning for possible small cell carcinoma. Additionally patient was recently seen by our oncologist and was scheduled to follow-up with her mixer lever operator which is why the tissue biopsy was being scheduled with him for a bronchoscopy. There is also concern for SIADH with a hyponatremia in the 120s.. Patient [facility] they stated that he has been more confused and the patient is encephalopathic currently and history is very limited given his clinical status. Related Data Home Medications ?Medication ?Instructions ?Recorded ?Confirmed folic acid 400 mcg tablet 0.4 mg PO DAILY 10/02/20 metformin 500 mg tablet 500 mg PO BID 10/02/2010/08 mirtazapine 15 mg tablet 15 mg PO HS 10/02/20 5 hydrochlorothiazide 25 mg tablet 25 mg PO DAILY 10/08/24 olanzapine 20 mg tablet (Zyprexa) 20 mg PO HS 11/12/23 10/08/24 temazepam 15 mg capsule 15 mg PO HSP PRN Sleep 11/1210/08/24 cholecalciferol (vitamin D3) 1,250 1,250 mcg PO WEEKLY 09/12/24 10/08/24 mcg (50,000 unit) capsule loperamide 2 mg tablet 2 mg PO DIRECTED 09/12/24 10/08/24 (Anti-Diarrheal (loperamide)) lisinopril 10 mg tablet 10 mg PO DAILY 10/02/2409/13 olanzapine 5 mg tablet 5 mg PO DAILY 10/02/2410/08 Previous Rx's ?Medication ?Instructions ?Recorded apixaban 5 mg (74 tabs) tablets in 5 mg PO BID #74 tab s 10/06/24 a dose pack (Eliquis DVT-PE Treat 30D Start) aspirin 81 mg tablet,delayed 81 mg PO DAILY #30 tabs 0 10/06/24 release umeclidinium 62.5 mcg-vilanterol 1 inh inhalation ESTHELA Y 30 days #60 10/06/24 25 mcg/actuation powdr for ea inhalation (Anoro Ellipta) enoxaparin 80 mg/0.8 mL 80 mg (0.8 mL) SQ Q12H 5 day s #8 mL 10/08/24 subcutaneous syringe (Lovenox) Allergies Allergy/AdvReac Type Severity Reaction Status Date / Time No Known Allergies Allergy Verified 10/08/24 11:35 [facility] Disclaimer: The information contained in this section may have been updated after the patient was seen, as this information can be updated by other users. Medical History (Updated 10/19/24 @ 16:24 by Jeni Villasenor MD) Atypical pneumonia Hilar lymphadenopathy Mediastinal lymphadenopathy Diabetes mellitus No significant past medical history Social History Smoking Status: Heavy tobacco smoker alcohol intake: never current occupational status: unemployed Travel in the last 8 weeks?: None Have you lived/traveled outside [place] in past 30 days?: No Contact w/someone who lives/traveled outside US past 30 days?: No Exposure to someone with infectious disease in past 14 days?: No Do you have a fever (greater than 100.4 F or 38 C)?: No Have you tested positive for COVID-19?: No Exposed to someone with COVID-19 in past 14 days?: No Do you have a sore throat?: No Do you have a cough?: No Do you have any weakness?: No Do you have any diarrhea?: No Are you experiencing any unusual bleeding?: No Do you have any muscle aches/pain?: No Do you have any abdominal pain?: No Are you experiencing loss of taste or smell?: No Other Medical History Have you received the Flu Vaccine for this season: No Have you received the Pneumonia Vaccine: No ROS Obtained: Yes All systems reviewed & no additional complaints except as documented Physical Exam General General appearance: alert and in no apparent distress Respiratory Respiratory exam: Present normal lung sounds bilaterally Cardiovascular Cardiovascular exam: Present other (Patient has significant and severe left upper extremity circumferential and diffuse swelling and weeping edema his arm is warm and tender he has 2+ radial and ulnar pulses in this region) Neurological Exam Neurological exam: Present alert and other (Nonfocal); Absent oriented X3 Medical Decision Making Medical Records Screening: Per USPSTF and CDC recommendations, given the prevalence of disease in our region, it is our hospital?s policy to screen for HIV and viral Hepatitis for all patients aged 18 and over and those with ongoing risk factors. Massimo Inquiry Pt receiving controlled substance: No Vital Signs: 10/19/24 16:03 10/19/24 16:09 10/19/24 16:17 Temperature 98 F 97.4 F L Temperature Source Oral Oral Pulse Rate 97 H Pulse Rate [Left] 95 H Respiratory Rate 20 20 Blood Pressure 126/60 Blood Pressure [Right Arm] 118/65 Blood Pressure Mean 75 Blood Pressure Mean [Right Arm] 82 Blood Pressure Source [Right Arm] Automatic Cuff Blood Pressure Position [Right Arm] Sitting 02 Sat by Pulse Oximetry 98 93 L Oxygen Delivery Method Room Air 10/19/24 16:31 10/19/24 17:30 10/19/24 18:00 Temperature Temperature Source Pulse Rate 91 H 89 91 H Pulse Rate [Left] Respiratory Rate 20 17 18 Blood Pressure 131/48 L 153/67 H 143/63 H Blood Pressure [Right Arm] Blood Pressure Mean 71 92 Blood Pressure Mean [Right Arm] Blood Pressure Source [Right Arm] Blood Pressure Position [Right Arm] 02 Sat by Pulse Oximetry 92 L 95 95 Oxygen Delivery Method Room Air 10/19/24 18:30 10/19/24 19:00 10/19/24 19:30 Temperature Temperature Source Pulse Rate 90 83 95 H Pulse Rate [Left] Respiratory Rate 23 18 19 Blood Pressure 145/67 H 118/66 123/61 Blood Pressure [Right Arm] Blood Pressure Mean 89 Blood Pressure Mean [Right Arm] Blood Pressure Source [Right Arm] Blood Pressure Position [Right Arm] 02 Sat by Pulse Oximetry 89 L 85 L 90 L Oxygen Delivery Method 10/19/24 20:00 10/19/24 20:30 Temperature Temperature Source Pulse Rate 95 H Pulse Rate [Left] Respiratory Rate 21 20 Blood Pressure 146/69 H 138/69 Blood Pressure [Right Arm] Blood Pressure Mean Blood Pressure Mean [Right Arm] Blood Pressure Source [Right Arm] Blood Pressure Position [Right Arm] 02 Sat by Pulse Oximetry 89 L Oxygen Delivery Method Lab Data Lab results reviewed: Yes I reviewed the patient's lab results. Lab Results 10/19/24 15:48: WBC 15.1 H, RBC 4.41 L, Hgb 9.7 L, Hct 29.8 L, MCV 67.6 L, MCH 22.0 L, MCHC 32.6, RDW 19.2 H, Plt Count 265, MPV 11.4 H, Neut % (Auto) 75.5, Lymph % (Auto) 15.2, [place] % (Auto) 7.3, Eos % (Auto) 1.1, Baso % (Auto) 0.4, N eut # (Auto) 11.4 H, Lymph # (Auto) 2.3, [place] # (Auto) 1.1 H, Eos # (Auto) 0.2, Baso # (Auto) 0.1, PT 13.0 H, INR 1.19 H, APTT 27.5, D-Dimer 1.48 H, Sodium 135 L, Potassium 3.3 L, Chloride 96 L, Carbon Dioxide 31 H, Anion Gap 11.3, BUN 19, Creatinine 1.10, Estimated Creat Clear 74, Estimated GFR 67, Est GFR ( Amer) 81, Glucose 128 H, Uric Acid 8.7 H, Calcium 12.1 H, Total Bilirubin 3.8 H, AST 70 H, ALT 73, Alkaline Phosphatase 98, Troponin I < 0.01, Total Protein 8.6 H, Albumin 3.9, Globulin 4.7 H, Albumin/Globulin Ratio 0.8 L 10/19/24 15:48 10/19/24 15:48 Orders (Tests/Meds): ED MEDICATIONS Generic Name Dose Route Start Last Admin Trade Name Freq PRN Reason Stop Dose Admin Sodium Chloride 10 ml 10/19/24 17:03 10/19/24 17:04 Sodium Chloride 0.9% 10ml Syr (Rad Only) IV 11/18/24 17:02 10 ml NEEDED PRN Administration Maintain IV Site Discontinued Medications Generic Name Dose Route Start Last Admin Trade Name Freq PRN Reason Stop Dose Admin Acetaminophen 1,000 mg 10/19/24 16:22 10/19/24 16:33 Acetaminophen 1,000mg/100ml Vial IV 10/19/24 16:23 1,000 mg ONCE ONE Administration Lactated Ringer's 1,000 mls @ 999 mls/hr 10/19/24 16:30 10/19/24 16:33 Lactated Ringer's 1000 Ml Bag IV 10/19/24 17:30 999 mls/hr .Q1H1M FARHANA Administration Iopamidol 145 ml 10/19/24 17:03 10/19/24 17:04 Iopamidol-370 (76%);100ml Bottle IV 10/19/24 17:04 145 ml ONCE ONE Administration Sodium Chloride 50 ml 10/19/24 17:03 10/19/24 17:04 0.9 % Sodium Chloride 50 Ml Vial IV 10/19/24 17:04 50 ml ONCE ONE Administration ORDERS Category Date Time Status CT angio chest PE protocol Stat Cat Scan 10/19/24 16:[address] head/brain wo con Stat Cat Scan 10/19/24 16:[address] soft tissue neck w con Stat Cat Scan 10/19/24 16:21 Completed CBC w/Auto Diff [Complete Blood Count Auto Diff] Stat Lab 10/19/24 15:48 Completed CMP [Comprehensive Metabolic Panel] Stat Lab 10/19/24 15:48 Completed D-Dimer Stat Lab 10/19/24 15:48 Completed PT/PTT Stat Lab 10/19/24 15:48 Completed Trop I [Troponin I] Stat Lab 10/19/24 15:48 Completed Troponin I Q3H Lab 10/19/24 22:30 Ordered Uric Acid Stat Lab 10/19/24 15:48 Completed Medical Decision Narrative: 64-year-old with infiltrative mediastinal mass and significant and severe left upper extremity swelling at a minimum has significant venous outflow obstruction and known extensive left upper extremity DVT was recently started on Eliquis. Will obtain CT imaging of the patient's head neck and chest possible that the patient has metastatic disease into his brain however this has not been evaluated in the past. Patient is altered seemingly acute. Differential from that includes extension of the disease and to the brain encephalopathy from cellulitis, paraneoplastic syndrome etc. Broad workup is pending. Patient likely will need to be transferred where he can be evaluated by comprehensive cancer team. Reassessment 555 patient remains encephalopathic but stable. CT scan performed which shows worsening and aggressively growing infiltrative mass in the mediastinum and supraclavicular region. The mass in the supraclavicular region in particular is 8 cm at its greatest diameter and is causing significant tracheal deviation. Mediastinal mass also completely encases much of the vasculature in the left upper extremity. Unclear as to whether or not this patient has been compliant with his Eliquis that he was recently started on for extensive DVT up in that region. Given the significant and rapid progression without a tissue diagnosis I will discuss the case with [facility] and see if there amenable to care for this patient. He may need more urgent chemo and or radiation and/or surgical intervention. 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 According notes from just a few weeks ago patient was awake alert and oriented his mental status is significant worse than it was. Reassessment 741 patient remains stable but encephalopathic. I discussed the case further with our radiologist and this mass is occluding the internal jugular vein and subclavian vein innominate vein explaining the extensive clot formation of the left upper extremity. I discussed the case with [facility]. They are concerned with the fact that the patient lives at [facility] and he has a turner of the [facility]. I did try to call the [place] of [place] and the emergency [facility] number and no answer. [facility] and they stated that the patient was essentially normal at baseline they are unsure as to why he was even aware of the state but they said that he would show up to dinner would behave normally would do functions around their facility normally and he would leave and be able to come back without any difficulty and they felt like he was essentially normal prior to this illness so within the last few months. Nonetheless I been unable to contact any guardian to make any definitive decisions. [facility] transfer center will review the images discussed the case with vascular surgery to see if there is any acute intervention that needs to be done and otherwise we will put the patient on a waiting list. Reassessment 805 I was able to talk to Nellie England who is the branch general manager for the [employer] that manages Mr. Jenkins's case. She states that the patient is full code and today will continue to proceed with all medical interventions unless the attending physicians state that it is not in the patient's best interest. There remains some diagnostic uncertainty in terms of what is causing this patient's acute encephalopathy. Ultimately I was able to speak to Dr. Torres the medical ICU attending at [facility] who agreed to accept this patient to their ICU. Patient will be transferred for further evaluation and management by their team. Critical Care Critical Care Time Critical Care Time: Yes Attestation: On 10/19/24, the high probability of a clinically significant, sudden or life threatening deterioration of the following system(s) required my full and direct attention, intervention and personal management. The time I documented below is in addition to time spent performing reported procedures but includes the following listed in this critical care notation. Total Time Total Critical Care Time: 65
[2024-10-19] MEDS: ACETAMINOPHEN 1,000MG/100ML VIAL 1000 MG IV (16:33)
[2024-10-19] MEDS: LACTATED RINGERS 1000ML 1,000 ML 999 ML IV (16:33)
[2024-10-19 16:35] LABS: Alanine Aminotransferase 73 U/L (12-78); Albumin Level 3.9 g/dl (3.5-5.0); Albumin/Globulin Ratio 0.8 (1.1-1.8); Alkaline Phosphatase 98 U/L (38-126); Anion Gap 11.3 mEq/L (5-15); Aspartate Amino Transferase 70 U/L (17-59); Bilirubin,Total 3.8 mg/dl (0.2-1.3); Blood Urea Nitrogen 19 mg/dl (9-20); Carbon Dioxide 31 mmol/L (22.0-30.0); Chloride 96 mmol/L (98-107); Creatinine Clearance Estimated 74 mL/min (50-200); Estimated Glomerular Filt Rate 67 ml/min (>60); GFR (African American) 81 ML/MIN (>60); Globulin 4.7 g/dL (1.3-3.2); Glucose 128 mg/dl (74-100); Potassium 3.3 mmoL/L (3.5-5.1); Sodium 135 mmol/L (136-145); Total Protein,Serum 8.6 g/dl (6.3-8.2)
[2024-10-19 16:40] LABS: Calcium 12.1 mg/dl (8.4-10.2)
[2024-10-19 16:47] LABS: Troponin I < 0.01 ng/ml (0.00-0.034)
[2024-10-19 16:56] LABS: Activated Partial Thrombo Time 27.5 seconds (22.8-30.6); INR 1.19 (0.9-1.1)
[2024-10-19 16:58] LABS: Basophils # 0.1 K/mm3 (0-0.2); Basophils % 0.4 % (0.1-2.0); Eosinophils # 0.2 Kmm3 (0.0-0.4); Eosinophils % 1.1 % (0.1-12.0); Hematocrit 29.8 % (42.0-52.0); Hemoglobin 9.7 g/dL (14.1-18.0); Immature Granulocytes # 0.07 10^3uL; Immature Granulocytes % 0.5 %; Lymphocytes # 2.3 K/mm3 (0.7-4.5); Lymphocytes % 15.2 % (10-50); Mean Corpuscular HGB Conc 32.6 g/dL (31.8-35.4); Mean Corpuscular Volume 67.6 fl (80-94); Mean Platelet Volume 11.4 fl (7.4-10.4); Monocytes # 1.1 K/mm3 (0.1-1.0); Monocytes % 7.3 % (1.7-9.3); Neutrophils # 11.4 K/mm3 (1.8-7.8); Neutrophils % 75.5 % (37.0-80.0); Nucleated Red Blood Cells # 0.04 10^3/uL; Nucleated Red Blood Cells % 0.3 %; Platelet Count 265 K/mm3 (142-424); Red Blood Count 4.41 M/mm3 (4.60-6.20); Red Cell Distribution Width 19.2 % (11.5-17.5); White Blood Count 15.1 K/mm3 (4.8-10.8)
[2024-10-19 17:02] LABS: D-Dimer 1.48 ug/mL (0.0-0.5)
[2024-10-19] MEDS: 0.9 % SODIUM CHLORIDE 50 ML VIAL IV (17:04)
[2024-10-19] MEDS: IOPAMIDOL-370 (76%);100ML BOTTLE 145 ML IV (17:04)
[2024-10-19] MEDS: SODIUM CHLORIDE 0.9% 10ML SYR (RAD ONLY) 10 ML IV (17:04)
--- NOTE | 2024-10-19 17:10 | PC.NURSE ---
back from scans
--- NOTE | 2024-10-19 17:52 | PC.NURSE ---
called [facility] for transfer
--- NOTE | 2024-10-19 18:02 | PC.NURSE ---
is currently speaking with AMEEAD
--- NOTE | 2024-10-19 18:10 | PC.NURSE ---
[facility] will call back when [facility] MD is available
--- NOTE | 2024-10-19 18:57 | PC.NURSE ---
calling [facility]. was told would be betting a call back soon
--- NOTE | 2024-10-19 19:25 | PC.NURSE ---
Radiology to re-send imaging to [facility].
[2024-10-19 19:34] LABS: Uric Acid 8.7 mg/dl (3.5-8.5)
--- NOTE | 2024-10-19 22:51 | PC.NURSE ---
Report given to nurse at [phone].
--- NOTE | 2024-10-19 23:07 | PC.NURSE ---
attempted to contact Nirmal Meyer x2 with no answer at [phone].
== END 2024-10-19 23:23 | disposition short-term general hospital (02) ==
PROVIDERS: Emergency Provider Student in an Organized Health Care Education/Training Program
DX: G93.41 Metabolic encephalopathy (principal); R22.32 Localized swelling, mass and lump, left upper limb; J98.59 Other diseases of mediastinum, not elsewhere classified; F17.210 Nicotine dependence, cigarettes, uncomplicated; R41.82 Altered mental status, unspecified
CPT/HCPCS: 70450; 70491; 71275; 80053; 84484; 84550; 85025; 85378; 85610; 85730; 93005; 96361; 96374; 99291; J0131; J7120; Q9967